=== PATIENT | male | born 1955 | race Caucasian/White ===

== ENCOUNTER → 2024-05-06 08:51 | Outpatient (REF) | payer MEDICARE, SELFPAY | LOC: HWRAD 08:51 | PROVIDERS: ATTENDING PHYSICIAN Student in an Organized Health Care Education/Training Program | DX: Z00.00 Encounter for general adult medical examination without abnormal findings (principal); I10 Essential (primary) hypertension; E11.69 Type 2 diabetes mellitus with other specified complication; K74.60 Unspecified cirrhosis of liver | CPT/HCPCS: 75571 ==

== ENCOUNTER → 2024-09-18 13:05 | Outpatient (REF) | payer MEDICARE, SELFPAY | LOC: RAD 13:05 | PROVIDERS: ATTENDING PHYSICIAN Internal Medicine; FAMILY PHYSICIAN Student in an Organized Health Care Education/Training Program | DX: C22.0 Liver cell carcinoma (principal); Z51.12 Encounter for antineoplastic immunotherapy; I83.891 Varicose veins of right lower extremity with other complications | CPT/HCPCS: 93971 ==

== ENCOUNTER → 2024-10-23 14:43 | Outpatient (REF) | payer MEDICARE, SELFPAY | LOC: HWRAD 14:43 | PROVIDERS: ATTENDING PHYSICIAN Registered Nurse Oncology; FAMILY PHYSICIAN Student in an Organized Health Care Education/Training Program | DX: C22.0 Liver cell carcinoma (principal) | CPT/HCPCS: 76700; 93975 ==

== ENCOUNTER → 2024-10-24 10:42 | Outpatient (REF) | payer MEDICARE, SELFPAY ==
[2024-10-24 10:55] VITALS: BP 134/74; BP_SYST 80
[2024-10-24 11:35] VITALS: BP 127/47
[2024-10-24 13:02] LABS: Body Fluid Second Tech AMA
== END ==
LOC: RADI 10:42
PROVIDERS: ATTENDING PHYSICIAN Registered Nurse Oncology
DX: R18.8 Other ascites (principal)
CPT/HCPCS: 49083; 89051

== ENCOUNTER → 2024-10-31 12:17 | Outpatient (REF) | payer MEDICARE, SELFPAY ==
[2024-10-31 12:46] VITALS: BP 133/72; BP_SYST 75
[2024-10-31 13:24] VITALS: BP 129/69
[2024-10-31 14:02] LABS: Body Fluid Second Tech EM
== END ==
LOC: RADI 12:17
PROVIDERS: ATTENDING PHYSICIAN Registered Nurse Oncology
DX: R18.8 Other ascites (principal)
CPT/HCPCS: 49083; 89051

== ENCOUNTER → 2024-11-05 12:21 | Outpatient (REF) | payer MEDICARE, SELFPAY ==
[2024-11-05 12:41] VITALS: BP 132/63; BP_SYST 82
[2024-11-05 13:20] VITALS: BP 106/58; BP_SYST 77
[2024-11-05 13:32] VITALS: BP 106/58
[2024-11-05 14:06] LABS: Body Fluid Second Tech EM
== END ==
LOC: RADI 12:21
PROVIDERS: ATTENDING PHYSICIAN Registered Nurse Oncology; FAMILY PHYSICIAN Student in an Organized Health Care Education/Training Program
DX: R18.8 Other ascites (principal)
CPT/HCPCS: 49083; 89051

== ENCOUNTER → 2024-11-11 12:23 | Outpatient (REF) | payer MEDICARE, SELFPAY ==
[2024-11-11 12:30] VITALS: BP 142/76; BP_SYST 89
[2024-11-11 13:10] VITALS: BP 116/60; BP_SYST 84
[2024-11-11 15:43] LABS: Body Fluid Second Tech RP
== END ==
LOC: RADI 12:23
PROVIDERS: ATTENDING PHYSICIAN Registered Nurse Oncology; FAMILY PHYSICIAN Student in an Organized Health Care Education/Training Program
DX: R18.8 Other ascites (principal)
CPT/HCPCS: 49083; 89051

== ENCOUNTER → 2024-11-20 10:14 | Outpatient (REF) | payer MEDICARE, SELFPAY ==
[2024-11-20 10:50] VITALS: BP 123/65; BP_SYST 68
[2024-11-20 11:40] VITALS: BP 110/53
[2024-11-20 12:30] LABS: Body Fluid Second Tech AP
== END ==
LOC: RADI 10:14
PROVIDERS: ATTENDING PHYSICIAN Registered Nurse Oncology; FAMILY PHYSICIAN Student in an Organized Health Care Education/Training Program
DX: R18.8 Other ascites (principal)
CPT/HCPCS: 49083; 89051

== ENCOUNTER → 2024-11-20 10:17 | Outpatient (REF) | payer MEDICARE, SELFPAY | LOC: RCS 10:17 | PROVIDERS: ATTENDING PHYSICIAN Internal Medicine; FAMILY PHYSICIAN Student in an Organized Health Care Education/Training Program | DX: C22.0 Liver cell carcinoma (principal); Z51.12 Encounter for antineoplastic immunotherapy; D69.6 Thrombocytopenia, unspecified; D53.9 Nutritional anemia, unspecified; R77.2 Abnormality of alphafetoprotein | CPT/HCPCS: 93005 ==

== ENCOUNTER → 2024-11-26 09:15 | Outpatient (REF) | payer MEDICARE, SELFPAY ==
[2024-11-26 09:33] VITALS: BP 155/85; BP_SYST 71
[2024-11-26 10:38] VITALS: BP 120/75; BP_SYST 69
[2024-11-26 11:48] LABS: Body Fluid Second Tech AMA
== END ==
LOC: RADI 09:15
PROVIDERS: ATTENDING PHYSICIAN Registered Nurse Oncology; FAMILY PHYSICIAN Student in an Organized Health Care Education/Training Program; REFERRING PHYSICIAN Internal Medicine
DX: R18.8 Other ascites (principal)
CPT/HCPCS: 49083; 89051

== ENCOUNTER → 2024-12-03 09:20 | Outpatient (REF) | payer MEDICARE, SELFPAY ==
[2024-12-03 09:48] VITALS: BP 157/85; BP_SYST 86
[2024-12-03 11:05] VITALS: BP 132/74; BP_SYST 85
[2024-12-03 11:15] VITALS: BP 132/74
[2024-12-03 12:23] LABS: Body Fluid Second Tech US
== END ==
LOC: RADI 09:20
PROVIDERS: ATTENDING PHYSICIAN Registered Nurse Oncology; FAMILY PHYSICIAN Student in an Organized Health Care Education/Training Program; REFERRING PHYSICIAN Internal Medicine Gastroenterology
DX: R18.8 Other ascites (principal)
CPT/HCPCS: 49083; 82042; 88112; 88305; 89051

== ENCOUNTER → 2024-12-03 09:51 | Outpatient (REF) | payer MEDICARE, SELFPAY ==
[2024-12-03 13:24] LABS: ALT (SGPT) 86 U/L (0-50); AST (SGOT) 208 U/L (17-59); Albumin 3.3 g/dl (3.5-5.0); Alkaline Phosphatase 377 U/L (38-126); Blood Urea Nitrogen 36 mg/dl (9-20); Calcium 8.5 mg/dl (8.4-10.2); Carbon Dioxide 31 mmol/L (22-30); Chloride 102 mmol/L (98-107); Glucose 120 mg/dl (70-99); Potassium 3.9 mmol/L (3.5-5.1); Sodium 137 mmol/L (135-145); Total Protein 6.2 g/dl (6.3-8.2); eGFR > 60.00
== END ==
LOC: REG 09:51
PROVIDERS: ATTENDING PHYSICIAN Internal Medicine Gastroenterology
DX: K75.81 Nonalcoholic steatohepatitis (NASH) (principal)
CPT/HCPCS: 36415; 80053

== ENCOUNTER → 2024-12-09 08:38 | Outpatient (REF) | payer MEDICARE, SELFPAY ==
[2024-12-09 08:45] VITALS: BP 141/83; BP_SYST 99
[2024-12-09 09:50] VITALS: BP 127/71; BP_SYST 84
[2024-12-09 10:00] VITALS: BP 127/71
[2024-12-09 11:23] LABS: Body Fluid Second Tech EM
== END ==
LOC: RADI 08:38
PROVIDERS: ATTENDING PHYSICIAN Registered Nurse Oncology; FAMILY PHYSICIAN Student in an Organized Health Care Education/Training Program
DX: R18.8 Other ascites (principal)
CPT/HCPCS: 49083; 89051

== ENCOUNTER 2024-12-14 18:53 | Inpatient (IN) | payer MEDICARE, SELFPAY ==
[2024-12-14] VITALS (12 sets, daily range): BP systolic 121–153; BP diastolic 65–88; BMI 21.7; BMI 21.4
--- NOTE | 2024-12-14 13:53 | ED.GENMED ---
History of Present Illness
General
Chief Complaint: Change in Mental Status
Source: patient, spouse and ambulance crew
Exam Limitations: none
Time Seen by Provider: 12/14/24 13:39
Nursing documentation reviewed up to this point in time: agreed with
History of Present Illness
History of Present Illness:
69-year-old male with a past medical history of hypertension, hyperlipidemia, diabetes, hepatocellular carcinoma who presents to the emergency department via EMS accompanied by his for evaluation of change in mental status. Patient is a
limited historian as he is acutely confused. His is at bedside and provides most of history. He was recently diagnosed with hepatocellular carcinoma earlier this year and has been following for his cancer care at [facility]. He
is currently on immunotherapy with Tecentriq and Avastin�he receives treatments every 3 weeks since September, last treatment was this past Sunday. He is also receiving weekly paracenteses and albumin treatments last paracentesis last Sunday, next
one scheduled for this upcoming Sunday. His notes that last week he was also diagnosed with new hypothyroidism and was started on Synthroid 112 mcg which he started a few days ago.
He presents to the ER today for change in mental status. His reports that she noticed yesterday afternoon patient was becoming increasingly confused�pacing around the house, very restless. He had trouble sleeping last night. This morning
markedly confused she says that he was trying to go to the bathroom in the cat's litter box. EMS called to bring him to the hospital. She has not noted any fever or chills, coughing. No vomiting. His abdomen is actually less distended than it
has typically been. No falls or trauma reported.
Past History
Past History
ED Past Medical History: HTN and Hypercholesterolemia
ED Past Surgical History: Cholecystectomy
Social History
Tobacco: Non-smoker
Alcohol: Former
Drug: None
Personal:
Living: with family
Employment: Employed
Family History
Family History: Other (Noncontributory)
Review of Systems
Review of Systems
Unable to obtain full review of systems at this time due to: other (Mental status changes)
All Other Systems: Not applicable
Phy Exam
Physical Exam
Physical Exam:
General: Awake, alert, oriented x2
Head: Normocephalic, atraumatic
Eyes: Conjunctiva normal, sclera anicteric, pupils equal round and reactive to light bilaterally
Throat: Airway intact, handling secretions
Neck: Trachea midline, supple without meningismus
Lungs: Clear to auscultation bilaterally, no wheezing, rales, rhonchi
Heart: Regular rate and rhythm, no murmurs, gallops, or rubs appreciated; right chest wall port noted
Abd: Soft, mildly distended, no apparent tenderness to palpation; small soft reducible umbilical hernia
Neuro: No gross cranial nerve deficits, he is confused but awake and alert; he is moving all extremities equally without focal motor or sensory deficit; mild tremor
Skin: No rash noted or signs of acute trauma
Extremities: No edema in extremities, equal pulses in all extremities
Scores
Heart Failure Risk
Heart Failure Risk Score: Not Applicable
Heart Score for Chest Pain Patients
STEMI patient?: Not applicable
Withdrawal Assessment of Alcohol
Withdrawal Assessment Completed?: Not applicable
Course
Orders/Labs/Results
Orders:
Orders
12/14/24 13:34
Electrocardiogram (*1) Urgent
Reason for Study: Other
Other Reason for Exam: Possible Sepsis
EKG- Treatment ONCE
12/14/24 13:40
Electrocardiogram (*1) Urgent
Reason for Study: Fatigue / Weakness
EKG- Treatment ONCE
12/14/24 13:49
Ammonia Urgent
Complete Blood Count/With Diff Urgent
Comprehensive Metabolic Panel Urgent
Magnesium Urgent
Comment: MAG ADDED ON BY FLOOR 2:45PM 12-14-24
TSH Reflex To Free T4 Urgent
12/14/24 13:53
CT Head W/o Iv Contrast Urgent
Comment:
Reason For Exam: change in mentation
12/14/24 14:13
Urinalysis Reflex To Culture Urgent
Date Specimen was Collected: 12/14/24
Time Specimen was Collected: 14:10
Urine Microscopic Reflex Cult Urgent
12/14/24 14:15
Heparin Pf [Heparin Lock Flush] 500 unit IV PER PROTOCOL
12/14/24 14:47
Add On- LAB Urgent
Tests Added?: magnesium
12/14/24 14:55
Potassium Chloride [KCl] 40 meq 0.9% Sodium Chloride 250 ml [Nss] 250 ml IV NOW
12/14/24 15:20
Prothrombin Time Urgent
12/14/24 16:12
Lactulose [Duphalac/Chronulac] 20 grams PO ONCE ONE
Abnormal Lab Results
12/14/24 12/14/24 12/14/24
13:49 14:13 15:20
RBC 4.19 L 10^6/uL
(4.70-6.10)
Hct 38.3 L %
(39.0-52.0)
MCH 31.5 H pg
(27.0-31.0)
RDW 15.6 H %
(11.5-14.5)
Plt Count 98 L 10^3/uL
(130-400)
Abs Immat Gran (auto) 0.1 H 10^3/uL
(0-0.05)
Absolute Neuts (auto) 8.2 H 10^3/uL
(1.4-6.5)
Absolute Lymphs (auto) 0.8 L 10^3/uL
(1.2-3.4)
Absolute Monos (auto) 1.1 H 10^3/uL
(0.1-0.6)
Neutrophils % 80.0 H %
(42.2-75.2)
Lymphocytes % 7.8 L %
(20.5-51.1)
Monocytes % 10.7 H %
(1.7-9.3)
PT 14.8 H Sec
(11.4-14.6)
Sodium 134 L mmol/L
(135-145)
Potassium 3.1 L mmol/L
(3.5-5.1)
Carbon Dioxide 33 H mmol/L
(22-30)
BUN 41 H mg/dl
(9-20)
Glucose 172 H mg/dl
(70-99)
Total Bilirubin 2.1 H mg/dl
(0.2-1.3)
AST 126 H U/L
(17-59)
ALT 71 H U/L
(0-50)
Alkaline Phosphatase 450 H U/L
(38-126)
Ammonia 53 H umol/L
(9-30)
Total Protein 5.9 L g/dl
(6.3-8.2)
Albumin 3.0 L g/dl
(3.5-5.0)
Ur Occult Blood Reflex 1+ A
(Negative)
Urine Glucose 3+ A
(Negative)
Urine Albumin (Reflex) 2+ A
(Neg - Trace)
12/14/24 13:49
12/14/24 13:49
Vital Signs
Initial and Last Documented VS:
Initial Vital Signs
Pulse Resp
102 20
12/14/24 13:32 12/14/24 13:32
Last Documented Vital Signs
Temp Pulse Resp BP Pulse Ox
36.4 C 89 18 150/81 99
12/14/24 13:34 12/14/24 15:30 12/14/24 15:30 12/14/24 15:08 12/14/24 15:30
MDM/Problems Addressed
Differential Diagnosis Includes:
Differential diagnosis for mental status changes in this patient is wide and includes but not limited to: Brain metastasis/brain bleed/stroke, electrolyte abnormality, dehydration, polypharmacy, hypo-/hyperthyroidism, infection including
UTI/pneumonia/viral syndrome/SBP, hepatic encephalopathy
MDM/Problems Addressed:
69-year-old male presents for change in mental status in the setting of recent immunotherapy for hepatocellular carcinoma, recently diagnosed hypothyroidism. Vitals and exam as above. Plan to place an IV send labs including a CBC and a CMP,
ammonia level, thyroid studies. Check an EKG. Will check urinalysis, chest x-ray. Send for CT head. Monitor very closely and reassess after the above.
Labs reviewed: CBC shows thrombocytopenia in the setting of known hepatocellular carcinoma, no leukocytosis. CMP shows hypokalemia and elevated BUN and creatinine likely some intravascular depletion will provide fluids and potassium repletion.
LFTs abnormal but essentially stable. His ammonia level is elevated. Thyroid studies unremarkable. Urinalysis negative for infection. CT head negative for any acute abnormality. At this point likely is diagnosis is hepatic encephalopathy will
treat with lactulose. Continue fluids and potassium repletion. Admit for continued monitoring and treatment. Discussed case with hospitalist.
Chronic conditions affecting care:
Hepatocellular carcinoma, thyroid dysfunction
*Radiology
Radiology exam reviewed: preliminary read by ED provider and radiology read reviewed
*Pulse Oximetry
SaO2: 100
Oxygen Mode of Delivery: Room air
Patient hypoxic: no (100%)
*Critical Care Note
Total Time (30-74mins, 75-104mins- exclusive of procedures): Not Applicable
Data Reviewed
Review of Other/Old Records Reveals: Labs and Records
Source: patient, records, spouse and ambulance crew
Patient Management
Discussion with other providers: Hospitalist (Discussed with hospitalist)
Escalation/DeEscalation of care consider admission/obs:
Admission indicated
ED Attending Note
-
Portions of this chart may have been created with voice recognition software.� Occasional wrong word or��sound alike� substitutions may have occurred due to the inherent limitations of voice recognition software.
Discharge Plan
Departure
Patient Disposition: Admit
Date of Disposition: 12/14/24
Time of Disposition: 16:14
Admit to doctor: Tahira
Presentation/result/management discussed w/ accepting MD/DO: Hospitalist
Discharge Problem:
Hepatic encephalopathy, Acute hypokalemia, RED (acute kidney injury)
Prescriptions:
No Action
metformin 500 MG tablet
1,000 mg PO DAILY
rosuvastatin 20 mg Tablet
20 mg PO DAILY
prednisone 20 mg Tablet
20 mg PO Q6H
prochlorperazine maleate 10 mg Tablet
10 mg PO DAILY
furosemide 40 mg Tablet
40 mg PO DAILY
spironolactone 100 mg Tablet
100 mg PO DAILY
gabapentin 100 mg Capsule
100 mg PO TID
Referrals:
Juliocesar Jones DO [Family Provider, Family Practice]
Interventions
Interventions:
*Risk Screen - Suicide Last Done: 12/14/24 13:45
*General Assessment Last Done: 12/14/24 13:34
*Neglect/Abuse Screening Last Done: 12/14/24 13:34
*ED- Fall Risk Assessment Last Done: 12/14/24 13:34
*ED COVID-19 Vaccine History Last Done: 12/14/24 13:34
ED- Pulmonary Assessment Last Done: 12/14/24 13:45
ED- Neurological Assessment Last Done: 12/14/24 13:45
ED- Cardiac Assessment Last Done: 12/14/24 13:45
Discharge Date and Time
Print Language: KYRGYZ
[2024-12-14 14:15] LABS: Hematocrit 38.3 % (39.0-52.0); Hemoglobin 13.2 g/dL (13.0-18.0); Mean Corp Hgb Conc. 34.5 g/dL (33.0-37.0); Mean Corpuscular Volume 91.4 fL (80.0-94.0); Nucleated Red Blood Cells % 0 % (-); Red Cell Dist. Width 15.6 % (11.5-14.5)
[2024-12-14 14:26] LABS: Ammonia 53 umol/L (9-30)
[2024-12-14 14:28] LABS: ALT (SGPT) 71 U/L (0-50); AST (SGOT) 126 U/L (17-59); Albumin 3.0 g/dl (3.5-5.0); Alkaline Phosphatase 450 U/L (38-126); Blood Urea Nitrogen 41 mg/dl (9-20); Calcium 8.7 mg/dl (8.4-10.2); Carbon Dioxide 33 mmol/L (22-30); Chloride 99 mmol/L (98-107); Estimated Creatinine Clearance 65 ml/min; Glucose 172 mg/dl (70-99); Potassium 3.1 mmol/L (3.5-5.1); Sodium 134 mmol/L (135-145); Total Protein 5.9 g/dl (6.3-8.2); eGFR > 60.00
[2024-12-14 14:33] LABS: Urine Character Slightly Cloudy (Clear)
[2024-12-14 14:58] LABS: Urine Squamous Cell 0-2 /LPF (Few); Urine Urothelial Cell 0-2 /LPF (FEW)
[2024-12-14 15:00] LABS: Urine Red Blood Cell 0-2 /HPF (0-2)
[2024-12-14 15:01] LABS: Urine White Cell 0-2 /HPF (0-5)
[2024-12-14 15:24] LABS: Platelet Count 98 10^3/uL (130-400)
[2024-12-14] MEDS: KCL 270 MEQ IV (15:25)
[2024-12-14 15:40] LABS: Magnesium 2.2 mg/dl (1.6-2.3)
[2024-12-14 15:44] LABS: INR 1.13; PT 14.8 Sec (11.4-14.6)
[2024-12-14] MEDS: NSS 500 IV (16:34)
[2024-12-14] MEDS: DUPHALAC/CHRONULAC 20 GRAMS PO (16:34)
--- NOTE | 2024-12-14 18:23 | W.PN.UPDATE ---
Update Note
Progress Note Update
Seen and examined the patient independently. Agree with the plan set forth by the resident. Discussed the plan. See changes in my documentation
69-year-old pleasant man was brought into the hospital because of confusion for the past 2 days according to his . He has a diagnosis of hepatocellular carcinoma and gets weekly paracentesis for ascites. He is under the care of Dr. Watson at [facility]. Currently on immunotherapy last treatment was on December 10. denies any nausea vomiting diarrhea, fever, patient is complaining of dysuria cough or sick contacts. No hemetemesis or melena.He is on Lasix as well as
spironolactone dose was increased on December 05. Patient was also started on prednisone on October 02 a day after he was started on immunotherapy and finishing up the dose.
Patient has a history of fatty liver and lost weight and was in good condition. He was on Resdifra for 3 years under the care of Dr Damon. As part of the trial he got an MRI in March 2024 which was clear. Repeat MRI in September 2024 showed liver
masses. It was hepatocellular carcinoma stage III by the time.
On examination patient is calm and pleasant confused
Knows that he is at the hospital could not give me any more details
Cardiovascular system S1-S2 appreciated
Chest clear to auscultation decreased breath sounds at the bases
Abdomen distended nontender bowel sounds present, umbilical hernia easily reducible
Mild tremors noted and a asterixis
No pedal edema
Head CT-mild diffuse cerebral and cerebellar volume loss. Mild periventricular white matter leukoaraiosis
EKG reviewed by me-sinus rhythm with PVCs and PACs.
# Confusion/encephalopathy
Likely hepatic encephalopathy-ammonia level 53
Triggering factor unclear
Needs paracentesis to rule out SBP-do diagnostic tap in the setting of hepatic encephalopathy to rule out SBP.
Blood cultures, chest x-ray, ordered
Check EEG
Urinalysis not indicative of UTI
COVID serologies negative
Hold diuretics
Start lactulose, follow ammonia levels and clinical response
GI evaluation
# Hepatocellular carcinoma diagnosed September 2024 stage III
Started on immunotherapy with Tecentriq, Avastin October 01 2024
Patient was also started on prednisone high dose on October 02, 2024 for unclear reasons-unclear if patient had any immune related adverse events. Completed last dose of Pred yesterday.
Patient has had 4 rounds of immunotherapy last round being on December 10, 2024
He follows up with Dr. Lise Zaragoza at [facility] ( records requested)
Gets weekly paracentesis with albumin has had 8 paracentesis so far starting 10/24/2024 and last 1 was on 12/09/2024 4.9 L were removed with albumin given.
Fluid WBC 239 ( Ply 30 %)-not consistent with SBP. No Gram stain or culture.
Cytology from fluid available from 12/03/2024-negative for malignant cells
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
# Hyponatremia-mild follow
# Hypokalemia-replaced in the ER. Repeat in the morning
# Hyperlipidemia-hold statin
# History of hypertension-not on medicines currently
# Diabetes-check hemoglobin A1c , continue metformin, Accu-Cheks and sliding scale coverage
# Hypothyroidism-normal TSH. Continue levothyroxine
# DVT prophylaxis-Lovenox
# CODE STATUS- FULL
Discussed with at bedside in detail
Time spent over 75 minutes
--- NOTE | 2024-12-14 18:26 | HPS.HSE ---
Family Physician
-
Family Physician: Juliocesar Jones, DO
Chief Complaint
-
Weakness, reduced appetite, confusion, dizziness
History of Present Illness
This is a 69-year-old male with a past medical history of hypertensive disease hyperlipidemia diabetes mellitus, hepatocellular carcinoma and hypothyroidism who presented to the ED today on account of weeks history of reduced appetite, weakness with
reduced activity tolerance, a days history of confusion which was noticed by his patient said he felt dizzy today he denies any history of nausea vomiting fever or urinary symptoms last bowel movement was 2 days ago, normal color
He had been on a 3-year trial for fatty liver disease where he had been taking Resmetirom along with lifestyle modification. He had noticed a significant weight loss and eventually developed GI discomfort
He had a routine MRI done in September which revealed liver pathology and was subsequently diagnosed with stage III hepatocellular carcinoma workup for liver cancer prior to that his MRI in March had showed no significant findings
He is on 3 weekly immunotherapy with Tecentriq and Avastin and weekly paracentesis with albumin infusion (next one scheduled for Sunday)
Medical History
Past Medical History
Past Medical History: Reports HTN (Has been off medication since he has been normotensive), Hypercholesterolemia, Hypothyroidism (Recently diagnosed and started on Synthyroid 112 mcg a few days ago) and NIDDM
Past Surgical History: Reports Cholecystectomy (For gallstones in 2013)
Social History
Tobacco: Non-smoker
Alcohol: Former (Quit 22 years ago)
Drug: None
Personal:
Living: With Family
Family History
Family History: Unable to Obtain
Allergies / Home Medications
Allergies reflects when Allergies were last updated in [employer].
Home Medications with original date entered in [employer]
Allergy/Medication List:
Allergies
Allergy/AdvReac Type Severity Reaction Status Date / Time
Penicillins Allergy Severe Rash Verified 11/05/24 12:53
Home Medications
metformin 500 mg tablet 1,000 mg PO DAILY Diabetes 02/05/14
rosuvastatin 20 mg tablet 20 mg PO QPM 11/05/24
furosemide 40 mg tablet 80 mg PO DAILY 11/26/24
spironolactone 100 mg tablet 200 mg PO DAILY 11/26/24
levothyroxine 112 mcg tablet 112 mcg PO DAILY 12/14/24
lidocaine-prilocaine 2.5 %-2.5 % topical cream 1 applic topical DAILYPRN PRN port access 12/14/24
ondansetron HCl 8 mg tablet 8 mg PO Q8HPRN PRN nausea 12/14/24
Review of Systems
-
History Source: Patient and Family ( at the bedside)
Constitutional: Reports Weight Loss, Fatigue and Sleep Disturbance (Hypersomnia, slept for over 12 hours)
EENT: Reports No Symptoms
Respiratory: Reports No Symptoms
Cardiac: Reports No Symptoms
: Reports No Symptoms
Musculoskeletal: Reports No Symptoms
Skin: Reports No Symptoms
Neurological: Reports Other (Awake and alert oriented x 3 mild confusion, using appropriate answers)
Endocrine: Reports No Symptoms
Physical Exam
Vital Signs
Vital Signs
Temp Pulse Resp BP Pulse Ox
97.6 F 91 20 141/76 97
12/14/24 13:34 12/14/24 17:45 12/14/24 17:45 12/14/24 17:00 12/14/24 17:45
Physical Exam
General: Appears Chronically Ill
HEENT: Anicteric, Moist mucous membranes and Atraumatic
Respiratory: Clear; No Wheezes or Rales
Cardiac: S1/S2 and Irregular Rhythm
GI: Non Tender, Non Distended and Distended (Firm)
Musculoskeletal: No Clubbing, No Cyanosis and No Edema
Skin: Warm and Dry
Neuro: Awake, Alert, Oriented and Tremors (Mild asterixis)
Psych: Calm
Laboratory Results
-
12/14/24 13:49
12/14/24 13:49
Laboratory Results
PT 14.8 Sec (11.4-14.6) H 12/14/24 15:20
INR 1.13 12/14/24 15:20
Total Bilirubin 2.1 mg/dl (0.2-1.3) H 12/14/24 13:49
AST 126 U/L (17-59) H 12/14/24 13:49
ALT 71 U/L (0-50) H 12/14/24 13:49
Alkaline Phosphatase 450 U/L (38-126) H 12/14/24 13:49
Impression/Plan
-
IMPRESSION:
Altered mental status
Acute metabolic encephalopathy
Spontaneous bacterial peritonitis
Electrolyte abnormality
Hypertension
Diabetes
Hypothyroidism
Hyperlipidemia
PLAN:
#Altered mental status
#Likely acute metabolic encephalopathy
- NH3�53
�Mild transaminitis
� Started lactulose in the ED
�Rule out Spontaneous bacterial peritonitis
iRad consulted
Peritoneal fluid analysis; glucose, albumin, LDH, cytology, Gram stain and culture
Urinalysis reflex culture, blood culture x 2
Daily CBC
GI consulted
� In the setting of acute metabolic encephalopathy, hold spironolactone, furosemide
#Electrolyte abnormality
-Hypokalemia, replete
-Daily cmp
Hypertension
Has been off medications
Monitor
NIDDM
-Continue metformin
- POC glucose checks
#Hypothyroidism
Repeat TSH
Continue Synthyroid
#Hyperlipidemia
- Hold rosuvastatin
#Ascites
-On weekly therapeutic paracentesis with albumin infusion
#DVT prophylaxis-Lovenox
# CODE STATUS- FULL
--- NOTE | 2024-12-14 23:58 | PTCARENOTE ---
Pt arrived to unit via stretcher. Pt transferred from stretcher to bed. Pt transferred from Bed 337-02 to Bed 326-01. Pt oriented to room. Pt AAOx2, pt not oriented to 'time'. Pt's VSS. Call godinez within reach, plan of care ongoing.
[2024-12-15] VITALS (10 sets, daily range): BP systolic 91–151; BP diastolic 67–87; BMI 21.4
[2024-12-15] MEDS: SYNTHROID 112 MCG PO (06:30)
[2024-12-15 06:52] LABS: Ammonia 44 umol/L (9-30)
[2024-12-15 06:52] LABS: INR 1.10; PT 14.5 Sec (11.4-14.6)
[2024-12-15 07:08] LABS: Hematocrit 38.0 % (39.0-52.0); Hemoglobin 13.1 g/dL (13.0-18.0); Mean Corp Hgb Conc. 34.5 g/dL (33.0-37.0); Mean Corpuscular Volume 93.8 fL (80.0-94.0); Nucleated Red Blood Cells % 0 % (-); Platelet Count 91 10^3/uL (130-400); Red Cell Dist. Width 15.8 % (11.5-14.5)
[2024-12-15 07:22] LABS: ALT (SGPT) 62 U/L (0-50); AST (SGOT) 109 U/L (17-59); Albumin 2.8 g/dl (3.5-5.0); Alkaline Phosphatase 412 U/L (38-126); Blood Urea Nitrogen 40 mg/dl (9-20); Calcium 8.8 mg/dl (8.4-10.2); Carbon Dioxide 31 mmol/L (22-30); Chloride 103 mmol/L (98-107); Estimated Creatinine Clearance 71 ml/min; Glucose 133 mg/dl (70-99); Potassium 3.7 mmol/L (3.5-5.1); Sodium 137 mmol/L (135-145); Total Protein 5.7 g/dl (6.3-8.2); eGFR > 60.00
[2024-12-15 08:05] LABS: Glucose - Point of Care 111 mg/dl (70-99)
[2024-12-15] MEDS: NOVOLOG FLEXPEN-LOW RESISTANCE SC (08:14)
[2024-12-15] MEDS: DUPHALAC/CHRONULAC 20 GRAMS PO ×3 (08:20→21:48)
[2024-12-15] MEDS: GLUCOPHAGE 1000 MG PO (08:21)
[2024-12-15 10:39] LABS: Glycohemoglobin (HgbA1c) 7.0 % (4.0-5.6)
--- NOTE | 2024-12-15 11:26 | CON.GI ---
Addendum entered and electronically signed by Irais Mtz Do, MD 12/15/24 16:56:
I saw and examined the patient.
The REELING OPERATOR's note was reviewed and I agree with the note.
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 He sees Dr Damon and Dr Zaragoza at
[place]. He was on clinical trial of rezdiffra for about [address] Damon in [place]. He reports normal MRI abdomen in Mar 2024 and repeat in September 2024 showed stage III HCC. He started immunotherapy with Tecentriq, Avastin through [facility] at [place] with 4 every 3week infusion last was in Dec 10 via his PORT. He of note was also recently placed on short pred taper for 'inflammation' and possible thyroiditis. He was placed last week on synthroid. In addition neurontin for
hiccups. His on Sunday found him to be sleepy and confused. He also lost about 40lbs since his cancer diagnosis. He currently denies dysphagia, reflux, heartburn, abd pain, constipation or diarrhea. Vitals stable. Exam thin bitemporal
wasting. Fluid wave NTTP. No asterixis Labs reviewed
Impression
- Acute change in mental status
Suspect from hepatic encephalopathy and multiple new meds recently (steroid thyroid med and neurontin)
- MASH cirrhosis
- Stage III HCC
- Recurrent large volume ascites
- DM
- HTN
- Weight loss
Recommendations
- Paracentesis done 4L removed neg for SBP, gram stain pending
- Hold diuretics, trend Cr
- C/w regular diet, add oral supplements
- BC and CXR negative for infection
- C/w lactulose, goal is 2BM daily
- Add xifaximin
- Anticipate d/c home tomorrow from GI perspective given significant improvement in mental status
Will follow with you.
Addendum entered and electronically signed by JUNIOR Gerard 12/15/24 14:55:
currently diuretics on hold
Original Note:
Consultation
-
Date/Time Consultation Requested: 12/14/242029
Date/Time Consultation Performed: 12/15/24 1330
Requesting Provider: Hillary Granados MD
Performing Provider: JUNIOR Wright, Irais Mina MD
Reason for Consultation: hepatic encephalopathy
Medical History
Chief Complaint / HPI
Chief Complaint: confusion
History of Present Illness:
Pt is a 69yo with hx hypothyroidism, HTN, hypercholesterolemia, prior ricky, NIDDM, PAC's, ,ETOH use and quit 20 years ago then about 2020 pt was noted with fatty liver. He began to follow with Dr. Stark as [facility]
with every 6 month MRI with lab and fibroscan testing. He began in July 2024 with wt loss, abdominal pain with EGD noted gastritis but then in September follow up MRI was noted with liver mass. He was referred to [facility] and was seen by surgical
oncology with no surgical intervention due to size of tumor then began immunotherapy with Dr. Zaragoza. He completed 4th treatment on 12/10 and due 12/31 for 5th treatment. Per family recent tumor markers were improving and he was due for repeat CT 12/26
and radiation evaluation in January. He also developed onset of ascites since mid October with albumin infusions with last several treatments. He was also started on Lasix and Aldactone with increased dose up to Lasix 80mg and Aldactone 200mg and
some elevated K levels. He also recently started Levothyroxine with increasing doses. He began with increased confusion Sunday AM with increased sleepiness then shakiness and confusion with presentation for evaluation. On admission noted with
ammonia level of 53 and pt was started on Lactulose 20mg TID with improvement.
At this time pt admits to one stool this am but denies issue with odynophagia, dysphagia, GERD, nausea, vomiting, abdominal pain, diarrhea, constipation or bleeding. labs on admission notable for normal WBC, hbg, and chronic low platelets and
albumin, Na 134, K 3.1 and chronic LFT elevation. hx EGD 07/2024 gastritis no varices, colonoscopy 09/2024 no polyps--- per family with Dr. Damon.
Past Medical History
Past Medical History: Arrhythmias (PAC's), Cancer (heptocellular carcinoma ), HTN, Hypercholesterolemia, Hypothyroidism, NIDDM and Other (GUEVARA cirrhosis, portal HTN, fatty liver, syncope )
Past Surgical History: Cholecystectomy (for acute gangenous calculous cholecystitis )
Social History
Tobacco: Non-Smoker
Alcohol: Former (quit 20 + years ago)
Drug: None
Personal:
Living: With Family
Employment: Retired
Family History
Family History: Other (no family hx colon CA, cirrhosis or liver CA)
Allergies / Home Medications
Allergy/AdvReac Type Severity Reaction Status Date / Time
Penicillins Allergy Severe Rash Verified 12/15/24 10:43
�Medication �Instructions �Recorded
metformin 500 mg tablet 1,000 mg PO DAILY Diabetes 02/05/14
rosuvastatin 20 mg tablet 20 mg PO QPM 11/05/24
furosemide 40 mg tablet 80 mg PO DAILY 11/26/24
spironolactone 100 mg tablet 200 mg PO DAILY 11/26/24
levothyroxine 112 mcg tablet 112 mcg PO DAILY 12/14/24
lidocaine-prilocaine 2.5 %-2.5 % 1 applic topical DAILYPRN PRN port 12/14/24
topical cream access
ondansetron HCl 8 mg tablet 8 mg PO Q8HPRN PRN nausea 12/14/24
Review of Systems
-
History Source: Patient and Family
Constitutional: Reports Weight Loss and Fatigue
EENT: Reports No Symptoms
Respiratory: Reports Trouble Breathing (with steps )
Cardiac: Reports No Symptoms
Abdomen/GI: Reports Nausea (at times ) and Other (distention with fluid )
: Reports No Symptoms
Musculoskeletal: Reports No Symptoms
Skin: Reports No Symptoms
Neurological: Reports No Symptoms
Endocrine: Reports No Symptoms
Hematologic/Lymphatic: Reports No Symptoms
Vital Signs
Temp Pulse Resp BP Pulse Ox
97.8 F 100 15 151/87 98
12/15/24 10:38 12/15/24 10:38 12/15/24 10:38 12/15/24 10:38 12/15/24 10:38
Physical Exam
Exam
General: Other (awake and alert, no asterixis)
HEENT: Normocephalic and Other (mild jaundice )
Respiratory: Clear
Cardiac: Regular Rhythm
GI: Soft, Non Tender, Distended (mild ) and Other (small umbilical hernia )
Musculoskeletal: No Clubbing and No Cyanosis
Skin: Warm and Dry
Neuro: Awake, Alert and AO x 3
Psych: Calm
Results
WBC 9.3 10^3/uL (4.8-10.8) 12/15/24 06:27
Hgb 13.1 g/dL (13.0-18.0) 12/15/24 06:27
Hct 38.0 % (39.0-52.0) L 12/15/24 06:27
MCV 93.8 fL (80.0-94.0) 12/15/24 06:27
Plt Count 91 10^3/uL (130-400) L 12/15/24 06:27
Absolute Neuts (auto) 6.8 10^3/uL (1.4-6.5) H 12/15/24 06:27
PT 14.5 Sec (11.4-14.6) 12/15/24 06:27
INR 1.10 12/15/24 06:27
Sodium 137 mmol/L (135-145) 12/15/24 06:26
Potassium 3.7 mmol/L (3.5-5.1) 12/15/24 06:26
Chloride 103 mmol/L (98-107) 12/15/24 06:26
Carbon Dioxide 31 mmol/L (22-30) H 12/15/24 06:26
BUN 40 mg/dl (9-20) H 12/15/24 06:26
Creatinine 1.0 mg/dL (0.7-1.3) 12/15/24 06:26
Calcium 8.8 mg/dl (8.4-10.2) 12/15/24 06:
Total Bilirubin 2.5 mg/dl (0.2-1.3) H 12/15/24 06:26
AST 109 U/L (17-59) H 12/15/24 06:
ALT 62 U/L (0-50) H 12/15/24 06:
Alkaline Phosphatase 412 U/L (38-126) H 12/15/24 06:26
Diagnostic Image Results:
10/23 - US doppler
1. Normal velocity flow within the main portal vein. Right and left portal veins were not well visualized.
2. Monophasic spectral Doppler waveforms within the visualized hepatic veins, new compared to prior ultrasound dated 07/05/2021. No thrombus is discretely visualized, however if concern remains high, consider contrast-enhanced CT or MR of the abdomen.
3. Cirrhotic morphology of liver. Splenomegaly, suggestive of portal hypertension.
4. Moderate intraperitoneal ascites.
12/14 HCT
1. Mild diffuse cerebral and cerebellar volume loss.
2. Mild periventricular white matter leukoaraiosis.
12/14/24 CXR
1. No radiographic evidence for pneumonia.
2. Moderate elevation of the right hemidiaphragm.
3. Right IJ Mediport catheter in place
Prior GI Procedures:
EGD: 07/2024 [facility] gastritis no hx varices per family
Colonoscopy: 09/2024- [facility] no polyps
Assessment / Plan
-
Pt is a 69yo with hx hypothyroidism, HTN, hypercholesterolemia, prior ricky, NIDDM, ETOH use and quit 20 years ago then about 2021 pt was noted with fatty liver. He began to follow with Dr. Stark as was placed [facility] with every
6 month MRI with lab and fibroscan testing. He began in July 2024 with wt loss, abdominal pain with EGD noted gastritis but then in September follow up MRI was noted with liver mass. He was referred to [facility] and was seen by surgical oncology with
no surgical intervention due to size of tumor then began immunotherapy with Dr. Zaragoza. He completed 4th treatment on 12/10 and due 12/31 for 5th treatment. Per family recent tumor markers were improving and he was due for repeat CT 12/26 and radiation
evaluation in January. He also developed onset of ascites since mid October with albumin infusions with last several treatments. He was also started on Lasix and Aldactone with increased dose up to Lasix 80mg and Aldactone 200mg and some elevated K
levels. He also recently started Levothyroxine with increasing doses. He began with increased confusion Sunday AM with increased sleepiness then shakiness and confusion with presentation for evaluation. On admission noted with ammonia level of 53
and pt was started on Lactulose 20mg TID with improvement.
At this time pt admits to one stool this am but denies issue with odynophagia, dysphagia, GERD, nausea, vomiting, abdominal pain, diarrhea, constipation or bleeding. labs on admission notable for normal WBC, hbg, and chronic low platelets and
albumin, Na 134, K 3.1 and chronic LFT elevation. hx EGD 07/2024 gastritis no varices, colonoscopy 09/2024 no polyps--- per family with Dr. Damon.
-new onset confusion with elevated ammonia and hepatic encephalopathy
-hx GUEVARA cirrhosis
-liver CA with current immunotherapy treatment
-ascites with weekly paracentesis
- HTN
- hypercholesterolemia
- prior ricky
- NIDDM
- ETOH use quit 20 years ago
PLAN:
etiology of confusion concern for new HE-- onset related to progression of liver disease, electrolyte imbalance with recent start of Lasix/adactone with initial hyperkalemia then hypokalemia, r/o infection, no current signs of bleeding vs other
mental status improved
agree with [id number] TID
reviewed with nursing for tracking all stools and adjusting medication with monitor need to add Xifaxan
CXR neg, UA neg, blood cx pending
s/p para for 4400 neg SBP and albumin infusing now
reviewed with nursing for tracking all stools
cont cholesterol lowering diet
MELD 3.0 based on 12/15 labs
OP follow up with Dr. Zaragoza and Dr. Damon
updated and reviewed with for plan
-
-
Thank you for consultation and allowing me to participate in the patient's care. Please call the leather sponger GI physician during the after hours with any questions or concerns.
[2024-12-15 12:24] LABS: Glucose - Point of Care 177 mg/dl (70-99)
[2024-12-15 12:40] LABS: Body Fluid Second Tech HB
[2024-12-15] MEDS: FLEXBUMIN 100 IV (13:02)
[2024-12-15] MEDS: NOVOLOG FLEXPEN-LOW RESISTANCE 1 UNITS SC (14:16)
--- NOTE | 2024-12-15 15:09 | W.PN.UPDATE ---
Update Note
Progress Note Update
Seen and examined the patient independently. Agree with the plan set forth by the resident. Discussed the plan. See changes in my documentation
69-year-old pleasant man was brought into the hospital because of confusion for the past 2 days according to his . He has a diagnosis of hepatocellular carcinoma and gets weekly paracentesis for ascites. He is under the care of Dr. Watson at [facility]. Currently on immunotherapy last treatment was on December 10. denies any nausea vomiting diarrhea, fever, patient is complaining of dysuria cough or sick contacts. No hemetemesis or melena.He is on Lasix as well as
spironolactone dose was increased on December 05. Patient was also started on prednisone on October 02 a day after he was started on immunotherapy and finishing up the dose.
Patient has a history of fatty liver and lost weight and was in good condition. He was on Resdifra for 3 years under the care of Dr Damon. As part of the trial he got an MRI in March 2024 which was clear. Repeat MRI in September 2024 showed liver
masses. It was hepatocellular carcinoma stage III by the time.
On examination patient is calm and awake and alert. Aware that he is at [facility] this is December. And today is a Sunday.
Knows that he is at the hospital could not give me any more details
Cardiovascular system S1-S2 appreciated
Chest clear to auscultation decreased breath sounds at the bases
Abdomen soft and nontender. Not distended
Mild tremors noted and no asterixis
No pedal edema
Head CT-mild diffuse cerebral and cerebellar volume loss. Mild periventricular white matter leukoaraiosis
EKG reviewed by me-sinus rhythm with PVCs and PACs.
# Confusion/encephalopathy
Likely hepatic encephalopathy-ammonia level 53
Triggering factor unclear
Needs paracentesis to rule out SBP-do diagnostic tap in the setting of hepatic encephalopathy to rule out SBP.
Blood cultures, chest x-ray, ordered
Urinalysis not indicative of UTI
COVID serologies negative
Hold diuretics
Started lactulose, follow ammonia levels and clinical response-clinically improved. Ammonia levels improved
GI evaluation
No need for EEG
# Hepatocellular carcinoma diagnosed September 2024 stage III
Started on immunotherapy with Tecentriq, Avastin October 01 2024
Patient was also started on prednisone high dose on October 02, 2024 for unclear reasons-unclear if patient had any immune related adverse events. Completed last dose of Pred yesterday.
Patient has had 4 rounds of immunotherapy last round being on December 10, 2024
He follows up with Dr. Lise Zaragoza at [facility] ( records requested)
Gets weekly paracentesis with albumin has had 8 paracentesis so far starting 10/24/2024 and last 1 was on 12/09/2024 4.9 L were removed with albumin given.
Paracentesis on 12/15/2024 removed 4.4 L-No SBP per fluid studies
Cytology from fluid available from 12/03/2024-negative for malignant cells
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
# Hyponatremia-resolved
# Hypokalemia-replaced in the ER. Repeat stable
# Hyperlipidemia-hold statin
# History of hypertension-not on medicines currently
# Diabetes-check hemoglobin A1c 7.0 , continue metformin, Accu-Cheks and sliding scale coverage
# Hypothyroidism-normal TSH. Continue levothyroxine
# DVT prophylaxis-Lovenox
# CODE STATUS- FULL
Discussed with GI
Discussed with IR
Discussed with nursing
Discussed with at bedside in detail
--- NOTE | 2024-12-15 15:20 | W.PN.HOSP.TC ---
Today's Communication/Plan
-
Replete albumin prior to Paracentesis
Peritoneal fluid analysis pending
Bowel regimen
Continue to monitor
Assessment / Plan
Assessment / Plan
69-year-old male with a past medical history of stage III hepatocellular carcinoma on immunotherapy with Tecentriq and Avastin and weekly paracentesis with albumin infusion , hypertensive disease hyperlipidemia diabetes mellitus, and hypothyroidism
who presented with 2 day confusion, and weeks long history of reduced appetite, weakness with reduced activity tolerance
#Altered mental status
#Likely acute metabolic encephalopathy
#Ascites s/p paracentesis
ammonia�53H--> 44H
Total Bili 1.4-->2,1-->2.5
AST 126-->109 H
ALT 71�>62 H
ALP 450-->412H
R Factor: 0.4 cholestatic
Total protein 6.2L, Albumin� 3.31 L
Continue Lactulose
Continue to trend ammonia
Peritoneal fluid analysis pending
Blood culture pending
Hold diuretics
Continue to check for changes in LOC, abdominal pain, fever
GI, IRAD following
#Stage III Hepatocellular Carcinoma
#Ascites s/p paracentesis
On immunotherapy with Tecentriq, Avastin
Weekly paracentesis with albumin
Follows Dr. Lise Zaragoza
Cytology from fluid available from 12/03/2024-negative for malignant cells
Albumin repleted for Paracentesis
Peritoneal fluid analysis pending
#Constipation
-Lactulose 20mg TID
#Electrolyte abnormality
-Hypokalemia, replete
-Hyponatremia, continue to� observe
-Trend CMP
# NIDDM
Hemoglobin A1c- 7.0
continue metformin, POC glucose checks
Sliding scale coverage
Hypertension
-Monitor
#Hypothyroidism
TSH 3.06
Continue Synthyroid
#Hyperlipidemia
- Hold rosuvastatin
#DVT prophylaxis-Heparin Sodium
# CODE STATUS- FULL�
Anticipated Discharge: 24 - 48 hours
Subjective/Interval History
-
Date of Service: December 15, 2024
Feels that he has more clarity, but still feeling weak. Had bowel movement today. Denies abdominal pain, cough, n/v, fever.
Objective Data
-
Labs:
Laboratory Results
12/15/24 12/15/24
06:26 06:27
WBC 9.3
Hgb 13.1
Hct 38.0 L
Plt Count 91 L
PT 14.5
INR 1.10
Sodium 137
Potassium 3.7
Chloride 103
Carbon Dioxide 31 H
BUN 40 H
Creatinine 1.0
Glucose 133 H
Calcium 8.8
Total Bilirubin 2.5 H
AST 109 H
ALT 62 H
Alkaline Phosphatase 412 H
Vital Signs:
Vital Signs
Temp Pulse Resp BP Pulse Ox
98.2 F 93 18 127/72 99
12/15/24 13:05 12/15/24 13:05 12/15/24 13:05 12/15/24 13:05 12/15/24 13:05
I&O
12/14/24 12/15/24 12/16/24
06:59 06:59 06:59
Intake Total 480 / 480
Balance 480 / 480
Review of Systems
-
Constitutional: Reports Weight Loss, Fatigue, Weakness and Other (Denies fever)
EENT: Reports No Symptoms Reported
Respiratory: Reports No Symptoms
Cardiac: Reports No Symptoms
Abdomen/GI: Reports Constipated and Other (Denies abdominal pain, Nausea and vomiting)
Musculoskeletal: Reports Other (Denies edema)
Neuro: Reports Other (Denies dizziness, lightheadedness)
Hematologic / Lymphatic: Reports Other (Denies bleeding)
Physical Exam
-
General: Appears Chronically Ill
HEENT: Normocephalic and Anicteric
Respiratory: Clear to Auscultation
Cardiac: S1/S2 and Other (RSA)
GI: Soft, Nontender, Normal Bowel Sounds and Other (reducible umbilical hernia)
Musculoskeletal: No Edema
Skin: Other ((-) jaundince)
Neuro: AO x 3 and Other ((-) tremors)
Psych: Calm
[2024-12-15 17:15] LABS: Glucose - Point of Care 227 mg/dl (70-99)
[2024-12-15] MEDS: NOVOLOG FLEXPEN-LOW RESISTANCE 2 UNITS SC (17:25)
[2024-12-15 21:29] LABS: Glucose - Point of Care 215 mg/dl (70-99)
[2024-12-15] MEDS: XIFAXAN 550 MG PO (21:46)
[2024-12-15] MEDS: BenGay-Like 1 APPLIC TOPICAL (21:47)
[2024-12-15] MEDS: MELATONIN 3 MG PO (21:47)
[2024-12-16 03:14] VITALS: BP 119/62
[2024-12-16 05:17] LABS: Ammonia 80 umol/L (9-30)
[2024-12-16 05:20] LABS: ALT (SGPT) 56 U/L (0-50); AST (SGOT) 104 U/L (17-59); Albumin 3.0 g/dl (3.5-5.0); Alkaline Phosphatase 421 U/L (38-126); Blood Urea Nitrogen 37 mg/dl (9-20); Calcium 8.7 mg/dl (8.4-10.2); Carbon Dioxide 27 mmol/L (22-30); Chloride 100 mmol/L (98-107); Estimated Creatinine Clearance 78 ml/min; Glucose 181 mg/dl (70-99); Potassium 3.7 mmol/L (3.5-5.1); Sodium 134 mmol/L (135-145); Total Protein 5.7 g/dl (6.3-8.2); eGFR > 60.00
[2024-12-16 06:00] LABS: Hematocrit 37.2 % (39.0-52.0); Hemoglobin 12.5 g/dL (13.0-18.0); Mean Corp Hgb Conc. 33.6 g/dL (33.0-37.0); Mean Corpuscular Volume 93.5 fL (80.0-94.0); Platelet Count 68 10^3/uL (130-400); Red Cell Dist. Width 15.9 % (11.5-14.5)
[2024-12-16] MEDS: SYNTHROID 112 MCG PO (06:09)
[2024-12-16 07:00] VITALS: BP 114/72
[2024-12-16 07:51] LABS: Glucose - Point of Care 139 mg/dl (70-99)
[2024-12-16] MEDS: XIFAXAN 550 MG PO ×2 (08:02→22:42)
[2024-12-16] MEDS: GLUCOPHAGE 1000 MG PO (08:02)
[2024-12-16] MEDS: DUPHALAC/CHRONULAC 20 GRAMS PO ×3 (08:02→22:42)
[2024-12-16] MEDS: BenGay-Like 1 APPLIC TOPICAL (08:03)
[2024-12-16] MEDS: NOVOLOG FLEXPEN-LOW RESISTANCE SC (09:09)
[2024-12-16 11:00] VITALS: BP 131/75
[2024-12-16 11:32] LABS: Glucose - Point of Care 259 mg/dl (70-99)
[2024-12-16] MEDS: NOVOLOG FLEXPEN-LOW RESISTANCE 3 UNITS SC (12:37)
--- NOTE | 2024-12-16 13:19 | W.PN.HOSP.TC ---
Addendum entered and electronically signed by Dolores Wilkins MD 12/16/24 14:59:
I saw and evaluated the patient. I reviewed the resident�s note and agree with findings and plan as documented in the resident�s note.
On examination awake alert oriented
Cardiovascular system S1-S2 appreciated, random irregular beats noted
Chest clear to auscultation
Abdomen soft and nontender
No asterixis noted
Ammonia level is 80 today
Patient is more clear. No bowel movements reported since yesterday
Continue lactulose and chart bowel movements. Encourage ambulation
If patient continues to improve and ammonia levels come down we will discharge tomorrow.
Agree with monitoring on telemetry because of PACs.
D/W at bed side
Original Note:
Today's Communication/Plan
-
Change to regular diet
PT/OT
Trend troponin
Check ECG
transfer to telemetry
Assessment / Plan
Assessment / Plan
69-year-old male with a past medical history of stage III hepatocellular carcinoma on immunotherapy with Tecentriq and Avastin and weekly paracentesis with albumin infusion , hypertensive disease hyperlipidemia diabetes mellitus, and hypothyroidism
who presented with 2 day confusion, and weeks long history of reduced appetite, weakness with reduced activity tolerance
#Altered mental status
#Hepatic encephalopathy
#Ascites s/p paracentesis
ammonia�53H--> 44H-->80 uptrend
Total Bili 1.4-->2,1-->2.5--> 19H downtrend
AST 126-->109 H--> 104 H
ALT 71�>62 H--> 56
ALP 450-->412H--> 421
-Continue Lactulose
-Continue to trend ammonia
-Paracentesis- 4400cc removed, (-) SBP
gram stain, culture, cytology pending
-Blood culture pending
-Hold diuretics
-Continue to check for changes in LOC, abdominal pain, fever
GI, IRAD, PT/OT following
#Stage III Hepatocellular Carcinoma
#Ascites s/p paracentesis
On immunotherapy with Tecentriq, Avastin
Weekly paracentesis with albumin
Follows Dr. Lise Zaragoza
Cytology from fluid available from 12/03/2024-negative for malignant cells
Albumin repleted for Paracentesis
Peritoneal fluid cytology pending
#Elevated Troponin
0.043
-cardiac vs elevation in setting of acute illness
-trend troponin
-ECG
-transfer to telemetry
#Anemia
#Thrombocytopenia
Hgb- 13.3N-->12.5 L
Hct, 38.3-->38.0->37.2 L
Platelet 98-->91-->67 L downtrend,�
#Constipation
-Lactulose 20mg TID
#Hypokalemia
-stable
-replete if <3.5
#Hyponatremia
134L
continue to� observe
-Trend CMP
# NIDDM
Hemoglobin A1c- 7.0
continue metformin, POC glucose checks
Sliding scale coverage
#Hypertension
-stable
-Monitor
#Hypothyroidism
TSH 3.06
Continue Synthyroid
#Hyperlipidemia
- Hold rosuvastatin
#Restless leg
- Bengay-like topical TID
#DVT prophylaxis-Heparin Sodium
# CODE STATUS- FULL�
Anticipated Discharge: > 48 hours
Subjective/Interval History
-
Date of Service: December 16, 2024
The patient denies bleeding, abdominal pain, weakness, fever. Last bowel movement was yesterday. Talked to the daughter, and they have been giving the patient food from outside the hospital. The patient prefers it and has been tolerating.
Objective Data
-
Labs:
Laboratory Results
12/16/24
04:29
WBC 7.6
Hgb 12.5 L
Hct 37.2 L
Plt Count 68 L D
Sodium 134 L
Potassium 3.7
Chloride 100
Carbon Dioxide 27
BUN 37 H
Creatinine 0.9
Glucose 181 H
Calcium 8.7
Total Bilirubin 1.9 H
AST 104 H
ALT 56 H
Alkaline Phosphatase 421 H
Vital Signs:
Vital Signs
Temp Pulse Resp BP Pulse Ox
98.0 F 93 18 131/75 98
12/16/24 11:00 12/16/24 11:00 12/16/24 11:00 12/16/24 11:00 12/16/24 11:00
I&O
12/15/24 12/16/24 12/17/24
06:59 06:59 06:59
Intake Total 480 / 480 500 / 500
Balance 480 / 480 500 / 500
Review of Systems
-
Constitutional: Reports Weight Loss and Fatigue; Denies Fever
EENT: Reports No Symptoms Reported
Respiratory: Reports No Symptoms
Cardiac: Reports No Symptoms
Abdomen/GI: Reports Other (Denies abdominal pain, Nausea and vomiting)
Musculoskeletal: Reports Other (Restless Leg )
Neuro: Reports Other (Denies dizziness, lightheadedness); Denies Headache
Hematologic / Lymphatic: Reports Other (Denies bleeding)
Physical Exam
-
General: Appears Chronically Ill
HEENT: Normocephalic and Anicteric
Respiratory: Clear to Auscultation
Cardiac: S1/S2 and Other (Pauses noted with expiration)
GI: Soft, Nontender, Normal Bowel Sounds, Distended and Other (reducible umbilical hernia)
Musculoskeletal: No Edema
Skin: Other ((-) jaundince)
Neuro: AO x 3 and Other ((-) tremors)
Psych: Calm
[2024-12-16 13:31] LABS: Troponin I 0.043 ng/ml
--- NOTE | 2024-12-16 14:01 | W.PN.GI.CBS2 ---
Addendum entered and electronically signed by Alejandra Conley MD 12/16/24 19:18:
I saw and examined the patient.
The [employer] MANAGER's note was reviewed and I agree with the note.
Mental status improved. Back to baseline. AAO x 3
Impression
- Acute change in mental status
Suspect from hepatic encephalopathy and multiple new meds recently (steroid thyroid med and neurontin)
- MASH cirrhosis
- Stage III HCC
- Recurrent large volume ascites
- DM
- HTN
- Weight loss
plan
Continue lactulose-adjust to 3-4 BMs per day.
Continue Xifaxan twice daily
Will recommend follow-up with Dr. Huerta / Nik Dorsey on discharge
no further recommendation. Will sign off
Original Note:
Today's Communication / Plan
-
etiology of confusion concern for new HE-- onset related to progression of liver disease, electrolyte imbalance with recent start of Lasix/adactone with initial hyperkalemia then hypokalemia,so far infection work up neg and no current signs of
bleeding vs other
mental status remains improved
cont Lactulose TID and Xifaxan BID
reviewed with fluctuation of ammonia level but best gauge is monitoring patient mental status which is improved without asterixis
discussed close watch for med adjustment and cost of meds with family -- left contact for
pt has followed with Dr. Damon and should return for continued hepatology care
cont monitor of stools
CXR neg, UA neg, blood cx no growth so far
s/p para for 4400 neg SBP
cont cholesterol lowering diet
MELD 3.0 based on 12/15 labs
OP follow up with Dr. Zaragoza
stable from GI standpoint
all questions answered
Assessment / Plan
-
Pt is a 69yo with hx hypothyroidism, HTN, hypercholesterolemia, prior ricky, NIDDM, ETOH use and quit 20 years ago then about 2020 pt was noted with fatty liver. He began to follow with Dr. Stark as was placed on [facility] clinical trial with every
6 month MRI with lab and fibroscan testing. He began in July 2024 with wt loss, abdominal pain with EGD noted gastritis but then in September follow up MRI was noted with liver mass. He was referred to [facility] and was seen by surgical oncology with
no surgical intervention due to size of tumor then began immunotherapy with Dr. Zaragoza. He completed 4th treatment on 12/10 and due 12/31 for 5th treatment. Per family recent tumor markers were improving and he was due for repeat CT 12/26 and radiation
evaluation in January. He also developed onset of ascites since mid October with albumin infusions with last several treatments. He was also started on Lasix and Aldactone with increased dose up to Lasix 80mg and Aldactone 200mg and some elevated K
levels. He also recently started Levothyroxine with increasing doses. He began with increased confusion Sunday AM with increased sleepiness then shakiness and confusion with presentation for evaluation. On admission noted with ammonia level of 53
and pt was started on Lactulose 20mg TID with improvement.
At this time pt admits to one stool this am but denies issue with odynophagia, dysphagia, GERD, nausea, vomiting, abdominal pain, diarrhea, constipation or bleeding. labs on admission notable for normal WBC, hbg, and chronic low platelets and
albumin, Na 134, K 3.1 and chronic LFT elevation. hx EGD 07/2024 gastritis no varices, colonoscopy 09/2024 no polyps--- per family with Dr. Damon.
-new onset confusion with elevated ammonia and hepatic encephalopathy
-hx GUEVARA cirrhosis
-liver CA with current immunotherapy treatment
-ascites with weekly paracentesis
- HTN
- hypercholesterolemia
- prior ricky
- NIDDM
- ETOH use quit 20 years ago
PLAN:
etiology of confusion concern for new HE-- onset related to progression of liver disease, electrolyte imbalance with recent start of Lasix/adactone with initial hyperkalemia then hypokalemia,so far infection work up neg and no current signs of
bleeding vs other
mental status remains improved
cont Lactulose TID and Xifaxan BID
reviewed with fluctuation of ammonia level but best gauge is monitoring patient mental status which is improved without asteixis
discussed close watch for med adjustment and cost of meds with family -- left contact for
pt has followed with Dr. Damon and should return for continued hepatology care
cont monitor of stools
CXR neg, UA neg, blood cx no growth so far
s/p para for 4400 neg SBP
cont cholesterol lowering diet
MELD 3.0 based on 12/15 labs
OP follow up with Dr. Zaragoza
stable from GI standpoint
all questions answered
Subjective
Subjective
Date of Service: December 16, 2024
stool 12/15 but none today, tolerating diet mental status remains stable
Objective
Data Reviewed
Laboratory Data:
Laboratory Results
12/16/24 04:29
12/16/24 04:29
Laboratory Results
PT 14.5 Sec (11.4-14.6) 12/15/24 06:27
INR 1.10 12/15/24 06:27
Magnesium 2.2 mg/dl (1.6-2.3) 12/14/24 13:49
Total Bilirubin 1.9 mg/dl (0.2-1.3) H 12/16/24 04:29
AST 104 U/L (17-59) H 12/16/24 04:29
ALT 56 U/L (0-50) H 12/16/24 04:29
Alkaline Phosphatase 421 U/L (38-126) H 12/16/24 04:29
Vital Signs and I&O:
Vital Signs
Temp Pulse Resp BP Pulse Ox
98.0 F 93 18 131/75 98
12/16/24 11:00 12/16/24 11:00 12/16/24 11:00 12/16/24 11:00 12/16/24 11:00
I&O
12/15/24 12/16/24 12/17/24
06:59 06:59 06:59
Intake Total 480 / 480 500 / 500
Balance 480 / 480 500 / 500
Physical Exam
Physical Exam
HEENT: Anicteric
Cardiology: Normal Sinus Rhythm
Pulmonary: Clear
GI: Soft, Distended and Non Tender
Extremities: No Edema
Neuro: Non Focal (no asterixis remains oriented x 3 )
[2024-12-16 15:00] VITALS: BP 131/83
--- NOTE | 2024-12-16 15:17 | CM ---
Late note from 12/15/2024. MARIE met with Silvestre at bedside. He lives with his in a 2 story home with 2 entry steps. Master Bath on the 2nd level; powder room in the basement.
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
He was very talkative and upbeat; awaiting an endoscopic procedure.
[2024-12-16] MEDS: NOVOLOG FLEXPEN 3 UNITS SC (15:48)
--- NOTE | 2024-12-16 16:20 | CM ---
CM continues to follow for discharge planning needs. Pt had a period of confusion, attributed to elevated ammonia and hepatic encephalopathy. Possible discharge tomorrow if pt's confusion clears.
Plan: CM will follow to coordinate all discharge planning needs.
[2024-12-16 17:03] LABS: Glucose - Point of Care 212 mg/dl (70-99)
[2024-12-16] MEDS: BenGay-Like TOPICAL ×2 (17:37→22:42)
[2024-12-16 17:42] LABS: Troponin I 0.044 ng/ml
[2024-12-16] MEDS: NOVOLOG FLEXPEN 2 UNITS SC (18:46)
[2024-12-16] MEDS: NOVOLOG FLEXPEN-LOW RESISTANCE 2 UNITS SC (18:47)
[2024-12-16 19:00] VITALS: BP 144/80
[2024-12-16 21:30] LABS: Glucose - Point of Care 203 mg/dl (70-99)
[2024-12-16 23:00] VITALS: BP 125/73
[2024-12-16 23:07] LABS: Troponin I 0.057 ng/ml
[2024-12-17 03:00] VITALS: BP 113/64
[2024-12-17 05:19] LABS: Ammonia 92 umol/L (9-30)
[2024-12-17 05:36] LABS: ALT (SGPT) 55 U/L (0-50); AST (SGOT) 145 U/L (17-59); Albumin 2.9 g/dl (3.5-5.0); Alkaline Phosphatase 432 U/L (38-126); Blood Urea Nitrogen 34 mg/dl (9-20); Calcium 8.4 mg/dl (8.4-10.2); Carbon Dioxide 25 mmol/L (22-30); Chloride 101 mmol/L (98-107); Estimated Creatinine Clearance 78 ml/min; Glucose 138 mg/dl (70-99); Potassium 4.1 mmol/L (3.5-5.1); Sodium 132 mmol/L (135-145); Total Protein 5.5 g/dl (6.3-8.2); eGFR > 60.00
[2024-12-17 05:41] LABS: Hematocrit 39.0 % (39.0-52.0); Hemoglobin 13.2 g/dL (13.0-18.0); Mean Corp Hgb Conc. 33.8 g/dL (33.0-37.0); Mean Corpuscular Volume 93.5 fL (80.0-94.0); Platelet Count 81 10^3/uL (130-400); Red Cell Dist. Width 16.0 % (11.5-14.5)
[2024-12-17 05:49] LABS: Troponin I 0.065 ng/ml
[2024-12-17] MEDS: SYNTHROID 112 MCG PO (06:02)
[2024-12-17 07:00] VITALS: BP 138/83
[2024-12-17 07:46] LABS: Glucose - Point of Care 133 mg/dl (70-99)
[2024-12-17] MEDS: NOVOLOG FLEXPEN-LOW RESISTANCE SC (07:58)
[2024-12-17] MEDS: GLUCOPHAGE 1000 MG PO (08:44)
[2024-12-17] MEDS: XIFAXAN 550 MG PO ×2 (08:44→20:48)
[2024-12-17] MEDS: BenGay-Like TOPICAL ×3 (08:45→22:12)
[2024-12-17] MEDS: NOVOLOG FLEXPEN 2 UNITS SC ×3 (08:45→17:50)
[2024-12-17] MEDS: DUPHALAC/CHRONULAC PO (08:45)
--- NOTE | 2024-12-17 10:01 | W.PN.HOSP.TC ---
Addendum entered and electronically signed by Dolores Wilkins MD 12/17/24 13:37:
Seen and examined the patient independently. Agree with the plan set forth by the resident. Discussed the plan. See changes in my documentation
69-year-old pleasant man was brought into the hospital because of confusion for the past 2 days according to his . He has a diagnosis of hepatocellular carcinoma and gets weekly paracentesis for ascites. He is under the care of Dr. Watson at [place]
[facility]. Currently on immunotherapy last treatment was on December 10. denies any nausea vomiting diarrhea, fever, patient is complaining of dysuria cough or sick contacts. No hemetemesis or melena.He is on Lasix as well as
spironolactone dose was increased on December 05. Patient was also started on prednisone on October 02 a day after he was started on immunotherapy and finishing up the dose.
Patient has a history of fatty liver and lost weight and was in good condition. He was on Resdifra for 3 years under the care of Dr Damon. As part of the trial he got an MRI in March 2024 which was clear. Repeat MRI in September 2024 showed liver
masses. It was hepatocellular carcinoma stage III by the time.
On examination patient is calm and awake and alert. Aware that he is at [facility] this is December. And today is a Sunday.
Knows that he is at the hospital could not give me any more details
Cardiovascular system S1-S2 appreciated
Chest clear to auscultation decreased breath sounds at the bases
Abdomen soft and nontender. Not distended
No asterixis
No pedal edema
Head CT-mild diffuse cerebral and cerebellar volume loss. Mild periventricular white matter leukoaraiosis
EKG reviewed by me-sinus rhythm with PVCs and PACs.
# Confusion/encephalopathy
Likely hepatic encephalopathy-ammonia level 53
Triggering factor unclear
Needs paracentesis to rule out SBP-do diagnostic tap in the setting of hepatic encephalopathy to rule out SBP.
Blood cultures, chest x-ray, ordered
Urinalysis not indicative of UTI
COVID serologies negative
Hold diuretics, restart at discharge
Started lactulose, follow ammonia levels and clinical response-clinically improved. Ammonia levels improved then started climbing up
Patient still with no asterixis or symptoms. Clinically improving.
Will increase lactulose to 4 times daily
# Hepatocellular carcinoma diagnosed September 2024 stage III
Started on immunotherapy with Tecentriq, Avastin October 01 2024
Patient was also started on prednisone high dose on October 02, 2024 for unclear reasons-unclear if patient had any immune related adverse events. Completed last dose of Pred yesterday.
Patient has had 4 rounds of immunotherapy last round being on December 10, 2024
He follows up with Dr. Lise Zaragoza at [facility] ( records requested)
Gets weekly paracentesis with albumin has had 8 paracentesis so far starting 10/24/2024 and last 1 was on 12/09/2024 4.9 L were removed with albumin given.
Paracentesis on 12/15/2024 removed 4.4 L-No SBP per fluid studies
Cytology from fluid available from 12/03/2024-negative for malignant cells
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
# Hyponatremia-resolved
# Hypokalemia-replaced in the ER. Repeat stable
# Hyperlipidemia-hold statin
# History of hypertension-not on medicines currently
# Diabetes-check hemoglobin A1c 7.0 , continue metformin, Accu-Cheks and sliding scale coverage
# Hypothyroidism-normal TSH. Continue levothyroxine
# DVT prophylaxis-Lovenox
# CODE STATUS- FULL
Original Note:
Today's Communication/Plan
-
ECHO pending
Continue to trend troponin until peak
Continue to trend Ammonia
Continue to monitor
Assessment / Plan
Assessment / Plan
69-year-old male with a past medical history of stage III hepatocellular carcinoma on immunotherapy with Tecentriq and Avastin and weekly paracentesis with albumin infusion , hypertensive disease hyperlipidemia diabetes mellitus, and hypothyroidism
who presented with 2 day confusion, and weeks long history of reduced appetite, weakness with reduced activity tolerance
#Altered mental status
#Hepatic encephalopathy
#Ascites s/p paracentesis
ammonia�53H--> 44H-->80--> 92 uptrend
LFT increased
-Paracentesis- 4400cc removed, (-) SBP
-Increased to Lactulose 20mg QID
-Continue to trend ammonia
-peritoneal fluid gram stain, culture, cytology pending
-Blood culture pending
-Hold diuretics
-Continue to check for changes in LOC, abdominal pain, fever
GI, IRAD, PT/OT following
#Stage III Hepatocellular Carcinoma
#Ascites s/p paracentesis
On immunotherapy with Tecentriq, Avastin
Weekly paracentesis with albumin
Follows Dr. Lise Zaragoza
Cytology from fluid available from 12/03/2024-negative for malignant cells
Albumin repleted for Paracentesis
Peritoneal fluid cytology pending
#Elevated Troponin
0.043->0.057-->0.065
-cardiac vs elevation in setting of acute illness
-trend troponin
-ECG
-ECHO ordered
#Anemia
#Thrombocytopenia
Hgb- 13.3N-->12.5 L
Hct, 38.3-->38.0->37.2 L
Platelet 98-->91-->67 L--> 81
#Constipation
-stable
-Lactulose 20mg QID
#Hypokalemia
-stable
-replete if <3.5
#Hyponatremia
132L
continue to� observe
# NIDDM
Hemoglobin A1c- 7.0
continue metformin, POC glucose checks
Sliding scale coverage
#Hypertension
-stable
-Monitor
#Hypothyroidism
TSH 3.06
Continue Synthyroid
#Hyperlipidemia
- Hold rosuvastatin
#Restless leg
- Bengay-like topical TID
#DVT prophylaxis-Heparin Sodium
# CODE STATUS- FULL�
Anticipated Discharge: 24 - 48 hours
Subjective/Interval History
-
Date of Service: December 17, 2024
The patient still has some weakness but feels much better, he denies palpitation, shortness of breath, nausea, vomiting, and abdominal pain. His last bowel movement was yesterday.
Objective Data
-
Labs:
Laboratory Results
12/17/24 12/17/24
04:44 04:45
WBC 8.1
Hgb 13.2
Hct 39.0
Plt Count 81 L
Sodium 132 L
Potassium 4.1
Chloride 101
Carbon Dioxide 25
BUN 34 H
Creatinine 0.9
Glucose 138 H
Calcium 8.4
Total Bilirubin 2.1 H
AST 145 H
ALT 55 H
Alkaline Phosphatase 432 H
Vital Signs:
Vital Signs
Temp Pulse Resp BP Pulse Ox
97.6 F 97 16 138/83 100
12/17/24 07:00 12/17/24 07:00 12/17/24 07:00 12/17/24 07:00 12/17/24 07:00
I&O
12/16/24 12/17/24 12/18/24
06:59 06:59 06:59
Intake Total 500 / 500 840 / 840
Balance 500 / 500 840 / 840
Review of Systems
-
Constitutional: Reports Weight Loss and Fatigue; Denies Fever
EENT: Reports No Symptoms Reported
Respiratory: Reports No Symptoms
Cardiac: Reports No Symptoms
Abdomen/GI: Reports Other (Denies abdominal pain, Nausea and vomiting)
Neuro: Reports Other (Denies dizziness, lightheadedness); Denies Headache
Hematologic / Lymphatic: Reports Other (Denies bleeding)
Physical Exam
-
General: Comfortable, Conversant and Appears Chronically Ill
HEENT: Normocephalic and Anicteric
Respiratory: Clear to Auscultation
Cardiac: S1/S2 and Other (Sinus Arrythmia)
GI: Soft, Nontender, Normal Bowel Sounds, Distended and Other (reducible umbilical hernia)
Musculoskeletal: No Edema
Skin: Warm and Other; Negative Jaundice
Neuro: AO x 3 and Other ((-) tremors); Negative Tremors
Psych: Calm
[2024-12-17 11:00] VITALS: BP 134/77
[2024-12-17 11:41] LABS: Troponin I 0.054 ng/ml
[2024-12-17 11:50] LABS: Glucose - Point of Care 266 mg/dl (70-99)
[2024-12-17] MEDS: NOVOLOG FLEXPEN-LOW RESISTANCE 3 UNITS SC (12:25)
[2024-12-17] MEDS: DUPHALAC/CHRONULAC 20 GRAMS PO ×3 (12:28→22:13)
[2024-12-17 15:00] VITALS: BP 131/76
--- NOTE | 2024-12-17 16:33 | CM ---
Discharge POC: Awaiting therapy recommendations. Was attempted but patient in testing.
[2024-12-17 16:52] LABS: Glucose - Point of Care 153 mg/dl (70-99)
[2024-12-17] MEDS: NOVOLOG FLEXPEN-LOW RESISTANCE 1 UNITS SC (17:50)
[2024-12-17 19:05] VITALS: BP 155/84
[2024-12-17 21:12] LABS: Glucose - Point of Care 226 mg/dl (70-99)
[2024-12-17 23:25] VITALS: BP 123/67
[2024-12-18 03:02] VITALS: BP 113/66
[2024-12-18 05:19] LABS: Hematocrit 38.4 % (39.0-52.0); Hemoglobin 13.1 g/dL (13.0-18.0); Mean Corp Hgb Conc. 34.1 g/dL (33.0-37.0); Mean Corpuscular Volume 92.5 fL (80.0-94.0); Platelet Count 78 10^3/uL (130-400); Red Cell Dist. Width 16.1 % (11.5-14.5)
[2024-12-18 05:35] LABS: Ammonia 67 umol/L (9-30)
[2024-12-18] MEDS: SYNTHROID 112 MCG PO (06:02)
[2024-12-18 06:10] LABS: ALT (SGPT) 63 U/L (0-50); AST (SGOT) 206 U/L (17-59); Albumin 2.7 g/dl (3.5-5.0); Alkaline Phosphatase 421 U/L (38-126); Blood Urea Nitrogen 36 mg/dl (9-20); Calcium 8.3 mg/dl (8.4-10.2); Carbon Dioxide 25 mmol/L (22-30); Chloride 98 mmol/L (98-107); Estimated Creatinine Clearance 88 ml/min; Glucose 139 mg/dl (70-99); Potassium 4.5 mmol/L (3.5-5.1); Sodium 129 mmol/L (135-145); Total Protein 5.8 g/dl (6.3-8.2); eGFR > 60.00
[2024-12-18 07:20] VITALS: BP 118/69
[2024-12-18] MEDS: XIFAXAN 550 MG PO (08:01)
[2024-12-18] MEDS: BenGay-Like TOPICAL ×2 (08:01→15:51)
[2024-12-18] MEDS: GLUCOPHAGE 1000 MG PO (08:01)
[2024-12-18] MEDS: DUPHALAC/CHRONULAC 20 GRAMS PO ×2 (08:01→13:18)
[2024-12-18] MEDS: NOVOLOG FLEXPEN-LOW RESISTANCE SC (08:07)
[2024-12-18 08:08] LABS: Glucose - Point of Care 123 mg/dl (70-99)
[2024-12-18] MEDS: NOVOLOG FLEXPEN 2 UNITS SC ×2 (09:06→13:19)
[2024-12-18] MEDS: LASIX 80 MG PO (09:49)
[2024-12-18] MEDS: ALDACTONE 200 MG PO (09:49)
--- NOTE | 2024-12-18 09:57 | W.PN.HOSP.TC ---
Addendum entered and electronically signed by Dolores Wilkins MD 12/18/24 16:13:
Troponin and echo noted.
Echo normal
Patient was not having any cardiac symptoms
Troponin is likely nonischemic myocardial injury
Addendum entered and electronically signed by Dolores Wilkins MD 12/18/24 15:32:
spoke to , updated.
Statin held for discharge
asked for Paper script for Xifaxan.
Total discharge time more than 30 min
Addendum entered and electronically signed by Dolores Wilkins MD 12/18/24 13:39:
Seen and examined the patient earlier today. was at bedside. Patient was feeling well no confusion no symptoms
On examination no asterixis noted
Mild distention the abdomen nontender
Mild hyponatremia noted
LFTs noted
Diuretics restarted
I have called and left a message for at [facility]
Possible discharge today
Original Note:
Today's Communication/Plan
-
Discharge patient
Continue lactulose
Continue to monitor
Assessment / Plan
Assessment / Plan
69-year-old male with a past medical history of stage III hepatocellular carcinoma on immunotherapy with Tecentriq and Avastin and weekly paracentesis with albumin infusion , hypertensive disease hyperlipidemia diabetes mellitus, and hypothyroidism
who presented with 2 day confusion, and weeks long history of reduced appetite, weakness with reduced activity tolerance
#Altered mental status
#Hepatic encephalopathy
#Ascites s/p paracentesis
-Paracentesis- 4400cc removed, (-) SBP
ammonia�53H--> 44H-->80--> 92--> 67
LFT increased
-Lactulose 20mg QID
-peritoneal fluid- no growth
-Blood culture- no growth prelim
-Peritoneal fluid cytology pending
-Hold diuretics
-Continue to check for changes in LOC, abdominal pain, fever
GI, IRAD, PT/OT following
#Stage III Hepatocellular Carcinoma
#Ascites s/p paracentesis
On immunotherapy with Tecentriq, Avastin
Weekly paracentesis with albumin
Follows Dr. Lise Zaragoza
Cytology from fluid available from 12/03/2024-negative for malignant cells
Albumin repleted for Paracentesis
Peritoneal fluid cytology pending
-Follow up with Dr. Zaragoza, Dr. Huerta as outpatient
#Elevated Troponin
0.043->0.057-->0.065
-likely elevation in setting of acute illness
-ECG- sinus with PVC Nonspecific ST and T wave abnomarlity
-ECHO- unremarkable
#Anemia
#Thrombocytopenia
Low, but stable from previous admissions
#Constipation
-stable
-Lactulose 20mg QID
#Hypokalemia
-stable
-replete if <3.5
#Hyponatremia
129
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
continue to� observe
# NIDDM
Hemoglobin A1c- 7.0
continue metformin, POC glucose checks
Sliding scale coverage
#Hypertension
-stable
-Monitor
#Hypothyroidism
TSH 3.06
Continue Synthyroid
#Hyperlipidemia
- Hold rosuvastatin
#Restless leg
- Bengay-like topical TID
#DVT prophylaxis-Heparin Sodium
# CODE STATUS- FULL�
Anticipated Discharge: Today
Subjective/Interval History
-
Date of Service: December 18, 2024
The patient has no specific concerns today. He denies palpitations, SOB, abdominal pain, and weakness. He was able to pass bowel movement once yesterday and today.
Objective Data
-
Labs:
Laboratory Results
12/18/24
04:49
WBC 9.4
Hgb 13.1
Hct 38.4 L
Plt Count 78 L
Sodium 129 L
Potassium 4.5
Chloride 98
Carbon Dioxide 25
BUN 36 H
Creatinine 0.8
Glucose 139 H
Calcium 8.3 L
Total Bilirubin 2.5 H
AST 206 H
ALT 63 H
Alkaline Phosphatase 421 H
Vital Signs:
Vital Signs
Temp Pulse Resp BP Pulse Ox
97.9 F 90 16 118/69 99
12/18/24 07:20 12/18/24 09:49 12/18/24 07:20 12/18/24 09:49 12/18/24 07:20
I&O
12/17/24 12/18/24 12/19/24
06:59 06:59 06:59
Intake Total 840 / 840 1000 / 1000
Balance 840 / 840 1000 / 1000
Review of Systems
-
Constitutional: Reports Weight Loss and Fatigue; Denies Fever
EENT: Reports No Symptoms Reported
Respiratory: Reports No Symptoms
Cardiac: Reports No Symptoms
Abdomen/GI: Reports Other (Denies abdominal pain, Nausea and vomiting)
Neuro: Reports Other (Denies dizziness, lightheadedness); Denies Headache
Hematologic / Lymphatic: Reports Other (Denies bleeding)
Physical Exam
-
General: Comfortable, Conversant and Appears Chronically Ill
HEENT: Normocephalic and Anicteric
Respiratory: Clear to Auscultation
Cardiac: S1/S2 and Other (RSA)
GI: Soft, Nontender, Normal Bowel Sounds, Distended and Other (reducible umbilical hernia)
Musculoskeletal: No Edema
Skin: Warm and Other; Negative Jaundice
Neuro: AO x 3 and Other ((-) asterixis); Negative Tremors
Psych: Calm
[2024-12-18 10:39] VITALS: BP 130/74; PULSE 100
--- NOTE | 2024-12-18 10:47 | PTOTSP ---
Patient demonstrates safe and independent mobility, no skilled physical therapy needs at this time.
[2024-12-18 11:15] VITALS: BP 129/77
[2024-12-18 11:27] LABS: Magnesium 2.4 mg/dl (1.6-2.3)
--- NOTE | 2024-12-18 11:49 | CM ---
CM following for anticipated discharge to home. PT evaluation has identified no need for continued therapy, he is ambulating independently without an assistive device.
Pt's will drive him home today.
Plan: Discharge to home today via with no identified discharge needs.
[2024-12-18 12:32] LABS: Glucose - Point of Care 159 mg/dl (70-99)
[2024-12-18] MEDS: NOVOLOG FLEXPEN-LOW RESISTANCE 1 UNITS SC (13:19)
--- NOTE | 2024-12-18 13:23 | PN.CDI ---
CDI
- -
CDI:
Physician Documentation Request
Admit Date: 12/14/24 18:53
Dear Doctor So,
Patient admitted with hepatic encephalopathy, ascites and hepatocellular carcinoma.
Troponin noted to be elevated.
12/17 echo summary states 'Compared to a prior transthoracic echocardiogram study from December 2020 no significant changes are seen'
Laboratory Tests
12/16/24 12/16/24 12/16/24
12:54 17:01 22:37
Troponin I 0.043 H* 0.044 H* 0.057 H* D
12/17/24 12/17/24
04:44 10:55
Troponin I 0.065 H* 0.054 H*
Please provide a diagnosis for the elevated troponin:
Nonischemic myocardial injury
Type II CT demand ischemia
Other
Use of terms such as suspected, likely, concern for, or probable (associated with a specific diagnosis that is being evaluated, monitored, or treated as if it exists) are acceptable and can be coded in the inpatient setting, when documented at the
time of discharge.
Thank you,
Polly Gonzalez RN, BSN
CDI Specialist
tiger text
Please use your independent medical judgment in providing your response.
[2024-12-18 15:30] VITALS: BP 120/74
--- NOTE | 2024-12-18 19:40 | W.DCSUMMARY ---
Discharge Summary
Discharge Data
Date of Admission: 12/14/24
Date of Discharge: 12/18/24
-
Pending Results: No
Hospital Course
Discharging Physician : Dolores Wilkins MD, Ginger Charles MD
Disposition : Home
Primary care physician : Juliocesar Sherman
Principal Discharge diagnosis : Hepatic encephalopathy, Stage III Hepatocellular Carcinoma, Ascites s/p paracentesis
Chronic Discharge diagnosis : Hyperlipidemia, NIDDM, Hypothyroidism
Hospital Course : 69-year-old male with a past medical history of stage III hepatocellular carcinoma on immunotherapy with Tecentriq and Avastin and weekly paracentesis with albumin infusion , hypertensive disease hyperlipidemia diabetes mellitus,
and hypothyroidism presented with 2 day confusion, and several weeks long history of reduced appetite, weakness with reduced activity tolerance
At the ED, CBC shows thrombocytopenia in the setting of known hepatocellular carcinoma, no leukocytosis. CMP shows hypokalemia and elevated BUN and creatinine suspected to be due to intravascular depletion.. LFTs abnormal but essentially stable.
His ammonia level is elevated at 53. Thyroid studies unremarkable. Urinalysis negative for infection. CT head negative for any acute abnormality. Hepatic encephalopathy suspected, lactulose given. Fluids and potassium repletion therapy also
started. Admitted for continued monitoring and treatment.
The following problems were addressed during this hospitalization:
#Altered mental status
#Hepatic encephalopathy
#Ascites s/p paracentesis
-Paracentesis- 4400cc removed, (-) SBP
-Ammonia trend: 53H--> 44H-->80--> 92--> 67
-LFT increased, but stable
-Lactulose 20mg QID started, and will be continued as outpatient
-Diuretics held, resumed as outpatient
-Statin on hold due to elevated LFTs
-peritoneal fluid- no growth
-Blood culture- no growth preliminary
-Peritoneal fluid cytology- Negative for malignant cells. Reactive mesothelial cells and lymphocyte predominant presence
-Monitored for changes in LOC, abdominal pain, fever
#Stage III Hepatocellular Carcinoma
#Ascites s/p paracentesis
-The patient is immunotherapy with Tecentriq, Avastin and weekly paracentesis with albumin. He follows Dr. Lise Zaragoza.
-Peritoneal Fluid Cytology (12/15/2024)- Negative for malignant cells. Reactive mesothelial cells and lymphocyte predominant presence
-Follow up with Dr. Zaragoza, Dr. Damon as outpatient
#Likely Nonischemic Myocardial Injury
Troponin: 0.043->0.057-->0.065>0.054, the patient was asymptomatic
-likely elevation in setting of acute illness
-ECG (12/17/2024)- sinus with PVC Nonspecific ST and T wave abnormality
-ECHO- unremarkable
#Anemia
#Thrombocytopenia
Low, but stable from previous admissions
-Repeat Complete Blood Count as outpatient
#Constipation
-stable, passing bowel with lactulose
-Lactulose 20mg QID
#Hypokalemia
-stable
-replete if <3.5
#Hyponatremia
-Likely dilutional due to [employer] Lasix being on hold, Lasix will be continued as outpatient
-sodium levels monitored
-repeat comprehensive metabolic panel as outpatient
# NIDDM
Hemoglobin A1c- 7.0
Metformin was continued with sliding scale coverage. POC glucose checks were done accordingly.
#Hypertension
-stable
#Hypothyroidism
TSH 3.06
-Synthyroid continued
#Hyperlipidemia
- Rosuvastatin is placed on hold due to elevated LFT.
#Restless leg
- Bengay-like topical TID was given to manage the symptoms.
The patient was examined, and deemed stable for discharge with appropriate follow-up.
Important imaging findings :
Head CT (12/14/2024):
There is no CT evidence for acute intracranial hemorrhage or extra-axial collection. The ventricles are midline without evidence for hydrocephalus. There is no midline shift or herniation. There is mild diffuse symmetric cerebral and cerebellar
volume loss.
There is no CT evidence for acute, subacute, or chronic transcortical infarct. There is a mild amount of low-attenuation white matter leukoaraiosis in the periventricular white matter of both cerebral hemispheres. There is mild calcific
atherosclerotic plaque in both intracranial internal carotid arteries.
The mid nasal septum is mildly deviated to the left. Imaged paranasal sinuses and mastoid air cells are clear. The orbits appear normal.
IMPRESSION:
1. Mild diffuse cerebral and cerebellar volume loss.
2. Mild periventricular white matter leukoaraiosis.
Chest X Ray (12/14/2024):
FINDINGS:
There is a right internal jugular Mediport catheter in place. The heart size and pulmonary vasculature appears within normal limits. There is no radiographic evidence for acute pulmonary edema.
The trachea is midline. There is moderate elevation of the right hemidiaphragm. There is no radiographic evidence for focal airspace opacity suspicious for pneumonia. There is a minimal amount of subpleural subsegmental atelectasis and scarring in
the lower lungs. There is no radiographic evidence for pleural effusion or pneumothorax.
There is a minimal right convex curvature of the midthoracic spine. There is mild multilevel thoracic discogenic degenerative disease. There is mild bilateral osteoarthritis of the acromioclavicular and glenohumeral joints.
There is no radiographic evidence for pneumoperitoneum or abnormal bowel dilatation in the upper abdomen.
IMPRESSION:
1. No radiographic evidence for pneumonia.
2. Moderate elevation of the right hemidiaphragm.
3. Right IJ Mediport catheter in place.
Procedure findings :
Paracentesis (12/15/2024):
FINDINGS: 4400 cc of clear darin ascitic fluid was evacuated. Samples sent for analysis as requested.
IMPRESSION: Successful ultrasound guided diagnostic and therapeutic paracentesis.
Cytology, Peritoneal Fluid, Paracentesis:
- Satisfactory for evaluation.
- Negative for malignant cells.
- Reactive mesothelial cells and lymphocyte predominant presence.
Gram Stain: White blood cells seen. No organism seen
ECG ():
SINUS RHYTHM WITH FREQUENT PREMATURE VENTRICULAR COMPLEXES
NONSPECIFIC ST AND T WAVE ABNORMALITY
ABNORMAL ECG
WHEN COMPARED WITH ECG OF 14-Dec-2024 13:38,
PREMATURE ATRIAL COMPLEXES ARE NO LONGER PRESENT
QT HAS SHORTENED
ECHOCARDIOGRAM (12/17/2024):
SUMMARY
1. Left ventricular ejection fraction is normal with an ejection fraction of 64 % by Jiménez's biplane method of discs.
2. Normal left ventricular size, wall thickness and systolic function. No regional wall motion abnormalities are seen.
3. Compared to a prior transthoracic echocardiogram study from December 2020 no significant changes are seen.
Left Ventricle:
Normal left ventricular size, wall thickness and systolic function. No regional wall motion abnormalities are seen. Left ventricular ejection fraction is normal with an ejection fraction of 64 % by Jiménez's biplane method of discs. Normal LV
diastolic function.
Right Ventricle:
Right ventricular size and systolic function are within normal limits. RV wall thickness is mildly increased.
Left Atrium:
Indexed left atrial volume is within normal range (15-34 ml/m2).
Right Atrium:
Right atrial size is normal. The inferior vena cava appears normal.
Interatrial Septum:
The interatrial septum appears normal and intact, with no evidence of interatrial shunting.
Aortic Valve:
Valve opens normally.
Mitral Valve:
Trace mitral valve regurgitation. Mildly thickened mitral valve leaflets with mild mitral annular calcification, normal leaflet opening and trace regurgitation seen.
Trcuspid Valve:
Right heart pressure cannot be estimated. Tricuspid valve opens normally. Trace tricuspid regurgitation.
Pulmonic Valve:
Pulmonic valve opens normally. Trace pulmonary valve regurgitation.
Aorta:
The aorta, from all segments that were visualized, appears normal in dimension, with no evidence of dilatation or obstruction.
Pericardium:
There is no evidence of pericardial effusion.
Comparison To Previous Study:
Compared to a prior transthoracic echocardiogram study from December 2020 no significant changes are seen.
Discharge Plan
-
Patient Disposition: Home (Routine Discharge)
Discharge Diagnosis/Procedures: Hepatic encephalopathy, Stage III Hepatocellular Carcinoma, Ascites s/p paracentesis, Hyperlipidemia, NIDDM, Hypothyroidism
Condition: Fair
Diet: Regular
Activity: As tolerated
Driving Restrictions: As prior to admission
Bathing Restrictions: OK to Shower
Blood Work: Repeat test for Ammonia Level and CMP on 12/22/2024 OR 12/23/2024
Referrals:
Sean Damon MD [Non-Admitting Privileges, Gastroenterology]
Referral Note: follow up for continued hepatology care
Irais Mina MD [Active, Gastroenterology]
Referral Note: call for any question or problems after discharge with medication, stool frequency or problems.
Juliocesar Jones DO [Family Provider, Family Practice] - in less than 1 week
Prescriptions:
New
lactulose 10 gram/15 mL Solution
20 g PO QID 30 Days Qty: 3600 3RF
Xifaxan 550 mg Tablet
550 mg PO BID Qty: 60 0RF
(DME) Comprehensive Metabolic Panel
See Rx Instructions .Route .MEDSUPPLY Qty: 1 0RF
Rx Instructions:
on 12/22/2024 OR 12/23/2024
Diagnosis: Hepatic Encephalopathy, Elevated LFT
Send to PCP (Juliocesar Jones) and Dr. Damon
(DME) Ammonia Levels
See Rx Instructions .Route .MEDSUPPLY Qty: 1 0RF
Rx Instructions:
on 12/22/2024 or 12/23/2024
Diagnosis: Hepatic Encephalopathy, Elevated Ammonia
Send to PCP (Juliocesar Jones) and Dr. Damon
Continued
metformin 500 MG tablet
1,000 mg PO DAILY
furosemide 40 mg Tablet
80 mg PO DAILY
spironolactone 100 mg Tablet
200 mg PO DAILY
ondansetron HCl 8 mg tablet
8 mg PO Q8HPRN PRN (Reason: nausea)
lidocaine-prilocaine 2.5-2.5 % cream
1 applic topical DAILYPRN PRN (Reason: port access)
levothyroxine 112 mcg tablet
112 mcg PO DAILY
Discontinued
rosuvastatin 20 mg Tablet
20 mg PO QPM
Discharge Orders:
Discharge Patient (As Directed); Ordered 12/18/24
Ordered By: Dolores Wilkins
Discharge Date and Time
Discharge Date/Time: 12/18/24 16:49
Print Language: BOLIVIAN
== END 2024-12-18 16:49 | disposition home or self-care (01) | DRG 436 ==
LOC: 3 WEST ACU 18:53
PROVIDERS: Radiology Vascular & Interventional Radiology; ADMITTING PHYSICIAN Hospitalist; EMERGENCY PHYSICIAN Emergency Medicine; FAMILY PHYSICIAN Student in an Organized Health Care Education/Training Program; OTHER PHYSICIAN Internal Medicine Gastroenterology
PROC: 0W9G3ZX Drainage of Peritoneal Cavity, Percutaneous Approach, Diagnostic (ICD-10-PCS; 2024-12-15)
DX: C22.0 Liver cell carcinoma (principal); E87.1 Hypo-osmolality and hyponatremia; N17.9 Acute kidney failure, unspecified; R18.8 Other ascites; I5A Non-ischemic myocardial injury (non-traumatic); K76.6 Portal hypertension; K76.82 Hepatic encephalopathy; I10 Essential (primary) hypertension; E11.9 Type 2 diabetes mellitus without complications; E78.00 Pure hypercholesterolemia, unspecified; K74.60 Unspecified cirrhosis of liver; K75.81 Nonalcoholic steatohepatitis (NASH); R06.6 Hiccough; E03.9 Hypothyroidism, unspecified; D69.59 Other secondary thrombocytopenia; E87.6 Hypokalemia; M19.012 Primary osteoarthritis, left shoulder; M19.011 Primary osteoarthritis, right shoulder; I49.3 Ventricular premature depolarization; I34.81 Nonrheumatic mitral (valve) annulus calcification; K59.00 Constipation, unspecified; D64.9 Anemia, unspecified; G25.81 Restless legs syndrome; Z79.84 Long term (current) use of oral hypoglycemic drugs; Z90.49 Acquired absence of other specified parts of digestive tract; Z88.0 Allergy status to penicillin; Z79.890 Hormone replacement therapy
CPT/HCPCS: 49083; 70450; 71046; 80053; 81003; 81015; 82140; 82945; 82962; 83036; 83615; 83735; 84157; 84443; 84484; 85025; 85027; 85610; 87015; 87040; 87070; 87205; 88112; 88305; 88341; 88342; 89051; 93005; 93306; 96361; 96374; 97161; 99285; P9047

== ENCOUNTER 2024-12-20 03:33 | Inpatient (IN) | payer MEDICARE, SELFPAY ==
[2024-12-19 17:34] VITALS: BP 109/72
[2024-12-19 17:51] LABS: Hematocrit 43.3 % (39.0-52.0); Hemoglobin 14.6 g/dL (13.0-18.0); Mean Corp Hgb Conc. 33.7 g/dL (33.0-37.0); Mean Corpuscular Volume 93.9 fL (80.0-94.0); Nucleated Red Blood Cells % 0 % (-); Platelet Count 135 10^3/uL (130-400); Red Cell Dist. Width 16.5 % (11.5-14.5)
[2024-12-19 18:12] LABS: AST (SGOT) 288 U/L (17-59); Albumin 3.2 g/dl (3.5-5.0); Alkaline Phosphatase 462 U/L (38-126); Blood Urea Nitrogen 48 mg/dl (9-20); Calcium 9.0 mg/dl (8.4-10.2); Carbon Dioxide 26 mmol/L (22-30); Chloride 95 mmol/L (98-107); Glucose 207 mg/dl (70-99); Lipase 826 U/L (23-300); Potassium 5.9 mmol/L (3.5-5.1); Sodium 129 mmol/L (135-145); Total Protein 6.4 g/dl (6.3-8.2); eGFR 54.41
[2024-12-19 18:22] LABS: ALT (SGPT) 79 U/L (0-50)
--- NOTE | 2024-12-19 21:30 | ED.GENMED ---
History of Present Illness
General
Chief Complaint: Abdominal Symptoms
Source: patient, records, spouse and previous hospital records
Exam Limitations: none
Time Seen by Provider: 12/19/24 21:21
Nursing documentation reviewed up to this point in time: agreed with
History of Present Illness
History of Present Illness:
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
lactulose and his thyroid meds became nauseous vomited bilious like material vomited again in the waiting room per the spouse, has been weak, here he looks weak lips are dry minimal asterixis mental status fairly clear denies chest pain denies
abdominal pain
Past History
Past History
ED Past Medical History: Cancer, HTN and Hypercholesterolemia
ED Past Surgical History: Cholecystectomy
Social History
Tobacco: Non-smoker
Alcohol: Former
Drug: None
Personal:
Living: with family
Employment: Employed
Family History
Family History: Other (Noncontributory)
Review of Systems
Review of Systems
All Other Systems: Not applicable
Constitutional: Reports fatigue; Denies fever
EENT: Reports no symptoms
Cardiac: Denies chest pain or palpitations
ABD/GI: Reports nausea and vomiting; Denies abdominal pain
Musculoskeletal: Reports no symptoms
Neurological: Reports weakness
Phy Exam
Physical Exam
Physical Exam:
Physical Exam
General: Chronically ill-appearing male
Neck: Dried vomit around the
Heart: s1/s2 regular rate and rhythm, no murmur. equal radial pulses.
Lungs: no acute respiratory distress. clear bilaterally
Abdomen: Soft
Neuro: alert and oriented. no focal neurological deficits slight asterixis
Skin: no rash
Psychiatric: well kept. interactive and cooperative
Extremities: no edema
Course
Orders/Labs/Results
Orders:
Orders
12/19/24 17:43
CBC/With Diff [Complete Blood Count/With Diff] Urgent
CMP [Comprehensive Metabolic Panel] Urgent
Lipase Urgent
12/19/24 19:35
Electrocardiogram (*1) Urgent
Reason for Study: Abdominal Pain
EKG- Treatment ONCE
12/19/24 21:28
0.9% Sodium Chloride 500 ml [Nss] 500 ml IV BOLUS
Ondansetron Injectable [Zofran] 4 mg IV NOW STA
12/19/24 22:39
Ammonia Urgent
12/19/24 23:00
Admit/Transfer Patient As Directed
Co-Sign Provider:
Level of Care: Inpatient admission
Assign to:: Medical/Surgical
Physician / Group: Peter
Diagnosis: RED
Reason for Hospitalization: RED
Expected length of stay greater than two midnights?: Yes
ELOS- Estimated Length of Stay in days: 2
I certify the patient meets the requirements for IP care: Yes
Flush (0.9% Sodium Chloride) [Flush (Nss)] See Dose Instructions IV PER PROTOCOL
12/19/24 23:01
PRN Pain Medication Management As Directed
May give lesser potent ordered pain med per pt: Yes
preference::
Protocol:: Medication orders for pain may be administered in a
manner that supports deferring to patient preference
when the pt is:
- Requesting an ordered lesser potent pain medication.
Least to most potent pain medications are defined
as: acetaminophen < NSAID < tramadol < opioids
(morphine, oxycodone, hydromorphone).
- Requesting a lesser dose of the same medication IF
ORDERED.
- Requesting a less intrusive route of administration
if both routes are prescribed by the provider (PO <
IV).
12/19/24 23:02
Code Status As Directed
Resuscitation Status: Full Code
12/19/24 23:04
Abdominal Series [CR Obstruct Series W/pa Chest] Stat
Comment:
Reason For Exam: eval for bowel obstruction
12/19/24 23:07
Albumin Human 25% 100 ml [Flexbumin] 25 grams in 100 ml IV TODAY
Sodium Zirconium Cyclosilicate [Lokelma] 10 gram PO NOW STA
12/20/24 00:30
US Abdomen Complete/Upper Routine
Reason For Exam: unexplained pancreatitis, eval for bubba obst.
12/20/24 02:35
Bladder Scan As Directed
Follow Bladder Retention/Intermittent Cath Algorithm?: Yes
PRN if no void in __ hours: 6
Frequency: Per Retention Algorithm
If Bladder Scan Result >: 400
then:: Straight cath
Straight Cath As Directed
Frequency: Per Retention Algorithm
Additional Instructions: straight cath as needed per acute urinary retention algorithm for 24 hrs
Additional Instructions: for bladder scan greater than 400 mL
Abnormal Lab Results
12/19/24 12/19/24
17:43 22:39
WBC 13.3 H 10^3/uL
(4.8-10.8)
RBC 4.61 L 10^6/uL
(4.70-6.10)
MCH 31.7 H pg
(27.0-31.0)
RDW 16.5 H %
(11.5-14.5)
MPV 10.5 H fL
(7.4-10.4)
Abs Immat Gran (auto) 0.1 H 10^3/uL
(0-0.05)
Absolute Neuts (auto) 9.5 H 10^3/uL
(1.4-6.5)
Absolute Monos (auto) 1.8 H 10^3/uL
(0.1-0.6)
Immature Gran % 0.8 H %
(0-0.5)
Lymphocytes % 13.4 L %
(20.5-51.1)
Monocytes % 13.8 H %
(1.7-9.3)
Sodium 129 L mmol/L
(135-145)
Potassium 5.9 H D mmol/L
(3.5-5.1)
Chloride 95 L mmol/L
(98-107)
BUN 48 H mg/dl
(9-20)
Creatinine 1.4 H mg/dL
(0.7-1.3)
Glucose 207 H mg/dl
(70-99)
Total Bilirubin 3.0 H mg/dl
(0.2-1.3)
AST 288 H U/L
(17-59)
ALT 79 H U/L
(0-50)
Alkaline Phosphatase 462 H U/L
(38-126)
Ammonia 104 H umol/L
(9-30)
Albumin 3.2 L g/dl
(3.5-5.0)
Lipase 826 H U/L
(23-300)
12/19/24 17:43
12/19/24 17:43
Vital Signs
Initial and Last Documented VS:
Initial Vital Signs
Temp Pulse Resp BP Pulse Ox
97.5 F 106 20 109/72 98
12/19/24 17:34 12/19/24 17:34 12/19/24 17:34 12/19/24 17:34 12/19/24 17:34
Last Documented Vital Signs
Temp Pulse Resp BP Pulse Ox
97.5 F 88 18 113/70 97
12/19/24 17:34 12/19/24 23:00 12/20/24 00:00 12/19/24 23:00 12/19/24 23:00
*Pulse Oximetry
SaO2: 98
Oxygen Mode of Delivery: Room air
Patient hypoxic: no
*Critical Care Note
Total Time (30-74mins, 75-104mins- exclusive of procedures): Not Applicable
ED Attending Note
-
Portions of this chart may have been created with voice recognition software.� Occasional wrong word or��sound alike� substitutions may have occurred due to the inherent limitations of voice recognition software.
Discharge Plan
Departure
Patient Disposition: Admit
Date of Disposition: 12/19/24
Time of Disposition: 21:30
Admit to: Telemetry
Presentation/result/management discussed w/ accepting MD/DO: Hospitalist
Patient with high blood pressure during this ER visit?: No
Condition: Fair
Covid-19: Not Applicable
Discharge Problem:
RED (acute kidney injury)
Prescriptions:
No Action
metformin 500 MG tablet
1,000 mg PO DAILY
furosemide 40 mg Tablet
80 mg PO DAILY
spironolactone 100 mg Tablet
200 mg PO DAILY
ondansetron HCl 8 mg tablet
8 mg PO Q8HPRN PRN (Reason: nausea)
lidocaine-prilocaine 2.5-2.5 % cream
1 applic topical DAILYPRN PRN (Reason: port access)
levothyroxine 112 mcg tablet
112 mcg PO DAILY
lactulose 10 gram/15 mL Solution
20 g PO QID 30 Days Qty: 3600 3RF
Xifaxan 550 mg Tablet
550 mg PO BID Qty: 60 0RF
Patient Comments:
Prescribed, per spouse, pt not takign at this time due to [place] of medication
(DME) Comprehensive Metabolic Panel
See Rx Instructions .Route .MEDSUPPLY Qty: 1 0RF
Rx Instructions:
on 12/22/2024 OR 12/23/2024
Diagnosis: Hepatic Encephalopathy, Elevated LFT
Send to PCP (Juliocesar Jones) and Dr. Damon
(DME) Ammonia Levels
See Rx Instructions .Route .MEDSULY Qty: 1 0RF
Rx Instructions:
on 12/22/2024 or 12/23/2024
Diagnosis: Hepatic Encephalopathy, Elevated Ammonia
Send to PCP (Juliocesar Jones) and Dr. Damon
Interventions
Interventions:
*Risk Screen - Suicide Last Done: 12/19/24 17:34
*General Assessment Last Done: 12/19/24 17:34
*Neglect/Abuse Screening Last Done: 12/19/24 17:34
*ED- Fall Risk Assessment Last Done: 12/19/24 21:31
*ED COVID-19 Vaccine History Last Done: 12/19/24 21:31
*Nursing Disposition Last Done: 12/20/24 00:57
TR-Avpfxx-Mffnyhnjdx Assessment Last Done: 12/19/24 22:06
Discharge Date and Time
Discharge Date/Time: 12/20/24 00:58
Print Language: BELGIAN
[2024-12-19 21:31] VITALS: BMI 21.2
[2024-12-19 21:36] VITALS: BP 118/73
[2024-12-19 22:00] VITALS: BP 116/74
[2024-12-19] MEDS: ZOFRAN 4 MG IV (22:32)
[2024-12-19] MEDS: NSS 500 IV (22:34)
--- NOTE | 2024-12-19 22:50 | HPS.HSE ---
Family Physician
-
Family Physician: Juliocesar Jones, DO
Chief Complaint
-
Vomiting
History of Present Illness
This is a 69-year-old with past medical history significant for stage III hepatocellular carcinoma complicated by recurrent ascites requiring large-volume paracentesis weekly, on immunotherapy with Tecentriq and Avastin, hypertensive disease
hyperlipidemia diabetes mellitus, and hypothyroidism recently admitted for confusion and found to have hepatic encephalopathy and none ischemic myocardial injury status post paracentesis on December 16 and discharged yesterday comes back to the
emergency department with episode of vomiting and abdominal tightness.
Patient reported that he started taking lactulose on this morning. This afternoon he reported onset of bilious emesis. He reported having tightness in his belly. The spouse them brought him to the emergency department since he was just
discharged. In the emergency department he had 1 large voluminous emesis. He has been having a cough since then but no other vomit. Reports no current abdominal pain. Denies having any fevers or chills. Denies abdominal tenderness. He has not
had any diarrhea or constipation. He has otherwise been on his discharge medications and denies any leg swelling lightheadedness or dizziness. Denies any chest pain palpitations.
In the emergency department he had a temp of 97.5, blood pressure was 120/70 with a pulse of 95 and was satting 100% on room air. ECG shows a normal sinus rhythm at a rate of 96. He has a white count of 13.3 which is new hemoglobin and platelets
were normal. Sodium was again 129 with a potassium of 5.9, pain and creatinine level for creatinine of 1.4 which is up from 0.8. Glucose was 207. He has mild transaminitis similar to prior. Lipase is elevated at 800.
Medical History
Past Medical History
Past Medical History: Reports HTN (Has been off medication since he has been normotensive), Hypercholesterolemia, Hypothyroidism (Recently diagnosed and started on Synthyroid 112 mcg a few days ago) and NIDDM
Past Surgical History: Reports Cholecystectomy (For gallstones in 2013)
Social History
Tobacco: Non-smoker
Alcohol: Former (Quit 22 years ago)
Drug: None
Personal:
Living: With Family
Family History
Family History: Unable to Obtain
Allergies / Home Medications
Allergies reflects when Allergies were last updated in [employer].
Home Medications with original date entered in [employer]
Allergy/Medication List:
Allergies
Allergy/AdvReac Type Severity Reaction Status Date / Time
Penicillins Allergy Severe Rash Verified 11/05/24 12:53
Home Medications
metformin 500 mg tablet 1,000 mg PO DAILY Diabetes 02/05/14
rosuvastatin 20 mg tablet 20 mg PO QPM 11/05/24
furosemide 40 mg tablet 80 mg PO DAILY 11/26/24
spironolactone 100 mg tablet 200 mg PO DAILY 11/26/24
levothyroxine 112 mcg tablet 112 mcg PO DAILY 12/14/24
lidocaine-prilocaine 2.5 %-2.5 % topical cream 1 applic topical DAILYPRN PRN port access 12/14/24
ondansetron HCl 8 mg tablet 8 mg PO Q8HPRN PRN nausea 12/14/24
Review of Systems
-
History Source: Patient and Family
Constitutional: Reports No Symptoms
EENT: Reports No Symptoms
Respiratory: Reports No Symptoms
Cardiac: Reports No Symptoms
Abdomen/GI: Reports Nausea and Vomiting
: Reports No Symptoms
Musculoskeletal: Reports No Symptoms
Skin: Reports No Symptoms
Neurological: Reports No Symptoms
Endocrine: Reports No Symptoms
Hematologic/Lymphatic: Reports No Symptoms
Psych: Reports No Symptoms
Physical Exam
Vital Signs
Vital Signs
Temp Pulse Resp BP Pulse Ox
97.5 F 95 18 118/73 98
12/19/24 17:34 12/19/24 21:45 12/19/24 21:45 12/19/24 21:36 12/19/24 21:45
Physical Exam
General: No Apparent Distress
HEENT: Anicteric, Moist mucous membranes and Atraumatic
Respiratory: Clear; No Wheezes or Rales
Cardiac: S1/S2 and Regular Rhythm; No Peripheral Edema
GI: Non Tender and Distended (Firm)
Musculoskeletal: No Clubbing, No Cyanosis and No Edema
Skin: Warm and Dry
Neuro: Awake, Alert, Oriented and Tremors (Mild asterixis)
Hematologic/Lymphatic: No Lymphadenopathy
Psych: Calm
Laboratory Results
-
12/19/24 17:43
12/19/24 17:43
Laboratory Results
Total Bilirubin 3.0 mg/dl (0.2-1.3) H 12/19/24 17:43
AST 288 U/L (17-59) H 12/19/24 17:43
ALT 79 U/L (0-50) H 12/19/24 17:43
Alkaline Phosphatase 462 U/L (38-126) H 12/19/24 17:43
Lipase 826 U/L (23-300) H 12/19/24 17:43
Data Reviewed
-
Medical Tests (Nuc Med, Echo, EKG etc): Image Personally Visualized and interpreted
Lab Data: Labs Reviewed by me
Old Records: Reviewed
Impression/Plan
-
IMPRESSION:
69-year-old with history of episodes carcinoma stage III on immunotherapy complicated by recurrent ascites requiring weekly paracentesis and was recently admitted for hepatic encephalopathy status post paracentesis requiring 4.5 L fluid removal and
no evidence of infection/SBP and discharged on lactulose and Lasix presenting to the emergency department with episode of vomiting and abdominal tightness and found to have RED with a creatinine of 1.4 and hyperkalemia with a potassium of 5.9.
Patient's exam is consistent with ascites but it is not tense and does not require immediate large-volume thoracentesis. No significant tenderness to suggest SBP. He has mild transaminitis which is similar to prior. A new elevated lipase of
unknown etiology. No CP. ECG non-ischemic.
PLAN:
1. Abdominal pain - Benign exam but cannot rule out obstruction, sbp or acute pancreatitis entirely.
- admit to med/surg
- CT a/p w/o contrast
- RUQ u/s to eval biliary obstruction
- NPO for now except meds
- pain control and antiemetics
2. Hepatic encephalopathy - Ammonia up to 100 c/w acute decompensation. No bleeding. No obvious infection.
- lactulose 20, then continue w/ 20 qid for now
- GI consultation
2. RED -Cr 1.4, BUN 48. Bl 0.8. Appears euvolemic and no obvious nephrotoxins
- hold lasix for today/spironolactone
- gentle hydration and albumin infusion
- CT to rule out obstruction
- nephrology consult
3. Hyperkalemia - recurrent hyperkalemia. Has been treated with Kayexellate in the past. 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
- lokelma x 10mg now and revealuate
- holding spironolactone
4. Recurrent Ascites - no tense ascites, there is leukocytosis
- diagnostic paracentesis
5. DM II
- sliding scale insulin q 6
6. Hypothyroid
- continue synthroid
DVT PPX - heparin sq
code status - Full code
[2024-12-19 22:57] LABS: Ammonia 104 umol/L (9-30)
[2024-12-19 23:00] VITALS: BP 113/70
[2024-12-19] MEDS: LOKELMA 10 GRAM PO (23:39)
[2024-12-19] MEDS: FLEXBUMIN 100 IV (23:41)
[2024-12-20 03:38] VITALS: BP 128/66; BMI 20.8
[2024-12-20 03:49] LABS: Glucose - Point of Care 129 mg/dl (70-99)
[2024-12-20] MEDS: DUPHALAC/CHRONULAC 20 GRAMS PO ×5 (04:45→21:18)
[2024-12-20] MEDS: HEPARIN 5000 UNITS SC ×4 (04:45→23:21)
[2024-12-20] MEDS: SYNTHROID 112 MCG PO (04:48)
[2024-12-20 06:06] LABS: Ammonia 75 umol/L (9-30)
[2024-12-20 06:16] LABS: ALT (SGPT) 78 U/L (0-50); AST (SGOT) 278 U/L (17-59); Albumin 3.0 g/dl (3.5-5.0); Alkaline Phosphatase 400 U/L (38-126); Blood Urea Nitrogen 53 mg/dl (9-20); Calcium 8.7 mg/dl (8.4-10.2); Carbon Dioxide 27 mmol/L (22-30); Chloride 97 mmol/L (98-107); Estimated Creatinine Clearance 53 ml/min; Glucose 143 mg/dl (70-99); Lipase 737 U/L (23-300); Magnesium 2.5 mg/dl (1.6-2.3); Potassium 4.8 mmol/L (3.5-5.1); Sodium 130 mmol/L (135-145); Total Protein 5.7 g/dl (6.3-8.2); eGFR 59.47
--- NOTE | 2024-12-20 06:22 | PTCARENOTE ---
12/20 010 Received patient from ED via stretcher w/ belongings. Patient admitted for abd pain/ vomiting, abnormal labs. Medsurg order; VSS.
AAOx3-weak and lethargic; No c/o pain. Patient denies N/V. Right Subq port accessed in ED. Albumin infusion completed. Lokelma administered in ED.
PMH and medications reviewed by this RN and patient/ medical records. Plan of care discussed.
There was an issue with the Admissions office transferring patient from ED to . Concerns discussed with ED RN and Reel Slitter. Patient finally transferred at 0335.
[2024-12-20 06:44] LABS: Hematocrit 34.8 % (39.0-52.0); Hemoglobin 12.0 g/dL (13.0-18.0); Mean Corp Hgb Conc. 34.5 g/dL (33.0-37.0); Mean Corpuscular Volume 92.3 fL (80.0-94.0); Platelet Count 61 10^3/uL (130-400); Red Cell Dist. Width 16.1 % (11.5-14.5)
[2024-12-20 07:55] VITALS: BP 103/52
--- NOTE | 2024-12-20 10:33 | W.CON.NEPH ---
Addendum entered and electronically signed by Jono Kay MD 12/20/24 15:09:
I agree with the resident's note with the addendum
69-year-old gentleman with stage III hepatocellular carcinoma with recurrent ascites on immunotherapy treatment. He is also maintained on high-dose diuretic therapy. According to the , Oniel Tilley has recently recommended that he double his
diuretic dosing and also discontinue his Kayexalate dosing. Not long after he and also began developing confusion decreased appetite and vomiting. He was brought to the emergency room. He was noted to have hyponatremia, hyperkalemia as well as
acute kidney injury with a creatinine of 1.4 from his baseline of 0.8. The does note that the oncologist had recommended nephrology evaluation previously.
He does have diabetes which has been well-controlled with metformin therapy alone, as well as hypothyroidism controlled with Synthroid therapy.
Patient is awake alert oriented and in no distress. Mood and affect were pleasant, insight and judgment were good. Pupils are equal round and reactive to light, extraocular movements are intact, sclera were anicteric. Hearing was normal, ears and
nose are intact. Oropharynx was clear. Neck was supple with trachea midline and no thyromegaly. Heart was regular rate and rhythm without rubs. Lower extremities without edema. Lungs were clear to auscultation bilaterally and with normal
excursion. Abdomen was soft, nontender, with normal active bowel sounds, and no hepatosplenomegaly. Skin was without rash and with normal turgor.
Laboratory values reviewed including past values as well
Abdominal ultrasound on 12/20/2024 moderate ascites with possibility of portal vein thrombosis
EKG 12/19/2024 by my reading normal sinus rhythm
Assessment
Hyponatremia
Hyperkalemia
RED
Recurrent ascites
Hepatic encephalopathy
Hepatocellular carcinoma on immunotherapy
Plan
Continue holding diuretics
He likely will not require additional Lokelma
If CT with IV contrast is requested I would wait until his creatinine runs closer to his baseline of 1.0
I have no issue with MRI gadolinium at this time.
Ultimately he could return to both Lasix and spironolactone though at half dose which he was on previously. He likely will need to return to [facility] as well as an outpatient if he is on high-dose spironolactone.
Discussed with patient and
Original Note:
Consultation
-
Date/Time Consultation Requested: 12/20/2024 03:37
Date/Time Consultation Performed: 12/20/2024 10:01
Requesting Provider: Yusef Green MD
Performing Provider: Jono Kay MD
Reason for Consultation: red
Medical History
-
Chief Complaint: RED
History of Present Illness:
This is a 69-year-old male with past medical history significant for stage III hepatocellular carcinoma complicated by recurrent ascites requiring weekly large-volume paracenteses, on immunotherapy, T2DM, hypothyroidism recently admitted for
confusion and noted to have hepatic encephalopathy, discharged on lactulose. Presented to ED 12/19/2024 due to ongoing bilious emesis. In the ED, noted to have large-volume emesis. At bedside today, complains of ongoing cough, but no episodes
of vomiting. Reports loss of appetite due to ongoing chronic issues. Denies edema, shortness of breath, chest pain. Upon presentation sodium was noted to be 129, potassium 5.9, creatinine 1.4 with his baseline 0.8. Given his RED and electrolyte
abnormality we are consulted to evaluate patient from a nephrology standpoint
Past Medical History
Past medical history; hypertension, hypercholesterolemia, hypothyroidism, T2DM, stage III hepatocellular carcinoma on immunotherapy, recurrent ascites
Past surgical history; cholecystectomy 2013
Social History
Tobacco: Non-Smoker
Alcohol: Former
Drug: None
Personal:
Living: With Family
Family History
Family History: Not Pertinent
Allergies / Home Medications
Allergy/AdvReac Type Severity Reaction Status Date / Time
Penicillins Allergy Rash-'as a Verified 12/19/24 17:34
child.'
�Medication �Instructions �Recorded �Confirmed �Type
metformin 500 mg tablet 1,000 mg PO DAILY Diabetes 02/05/14 12/19/24 History
furosemide 40 mg tablet 80 mg PO DAILY Fluid 11/26/24 12/19/24 History
Retention/Swelling
spironolactone 100 mg tablet 200 mg PO DAILY Fluid Retention/BP 11/26/24 12/19/24 History
levothyroxine 112 mcg tablet 112 mcg PO DAILY Thyroid 12/14/24 12/19/24 History
lidocaine-prilocaine 2.5 %-2.5 % 1 applic topical DAILYPRN PRN port 12/14/24 12/19/24 History
topical cream access
ondansetron HCl 8 mg tablet 8 mg PO Q8HPRN PRN nausea 12/14/24 12/19/24 History
Ammonia Levels #1 ea 12/18/24 Rx
Comprehensive Metabolic Panel #1 ea 12/18/24 Rx
lactulose 10 gram/15 mL oral 20 g (30 mL) PO QID 30 days #3,600 12/18/24 12/19/24 Rx
solution mL
rifaximin 550 mg tablet (Xifaxan) 550 mg PO BID liver #60 tabs 12/18/24 Rx
Review of Systems
-
All other systems: Negative unless noted (All review of systems obtained and negative except as documented in HPI)
Physical Exam
Vital Signs
Vital Signs
Temp Pulse Resp BP Pulse Ox
97.5 F 81 16 103/52 97
12/20/24 07:55 12/20/24 07:55 12/20/24 07:55 12/20/24 07:55 12/20/24 08:00
Lab Results
WBC 7.7 10^3/uL (4.8-10.8) 12/20/24 05:36
RBC 3.77 10^6/uL (4.70-6.10) L 12/20/24 05:36
Hgb 12.0 g/dL (13.0-18.0) L 12/20/24 05:36
Hct 34.8 % (39.0-52.0) L 12/20/24 05:36
Plt Count 61 10^3/uL (130-400) L D 12/20/24 05:36
Sodium 130 mmol/L (135-145) L 12/20/24 05:36
Potassium 4.8 mmol/L (3.5-5.1) 12/20/24 05:36
Chloride 97 mmol/L (98-107) L 12/20/24 05:36
Carbon Dioxide 27 mmol/L (22-30) 12/20/24 05:36
BUN 53 mg/dl (9-20) H 12/20/24 05:36
Creatinine 1.3 mg/dL (0.7-1.3) 12/20/24 05:36
eGFR 59.47 12/20/24 05:36
Glucose 143 mg/dl (70-99) H 12/20/24 05:36
Calcium 8.7 mg/dl (8.4-10.2) 12/20/24 05:36
Albumin 3.0 g/dl (3.5-5.0) L 12/20/24 05:36
Physical Exam
General: Awake, Alert and Oriented
HEENT: Anicteric
Respiratory: Clear
Cardiac: S1/S2 and Regular Rate/Rhythm
Abdomen: Soft and Other (Distended)
Musculoskeletal: No Edema
Psych: Other (Depressed)
Assessment/Plan
-
Assessment
Hyponatremia
Hyperkalemia
RED
Recurrent ascites
Hepatic encephalopathy
Hepatocellular carcinoma on immunotherapy
Plan
Continue Holding diuretics
If improved labs, consider restarting tomorrow
Daily BMP
s/p lokelma
--- NOTE | 2024-12-20 11:26 | W.PN.HOSP.TC ---
Today's Communication/Plan
-
holding diuretics for today
Cont lactulose
restart rifaximin - does not take outpt due to solano - engage with GI for other alternatives
paracentesis
anticoag v conservative management - confirm with GI
monitor BMP
Trial Diet
Assessment / Plan
Assessment / Plan
Physical Exam
General: No Apparent Distress
HEENT: Anicteric, Moist mucous membranes and Atraumatic
Respiratory: Clear; No Wheezes or Rales
Cardiac: S1/S2 and Regular Rhythm; No Peripheral Edema
GI: Non Tender and Distended (Firm) Non Tender
Musculoskeletal: No Clubbing, No Cyanosis and No Edema
Skin: Warm and Dry
Neuro: Awake, Alert, Oriented and Tremors (Mild asterixis)
Hematologic/Lymphatic: No Lymphadenopathy
Psych: Calm
#Abdominal pain, resolved
-No evidence of obstruction although possibility of - #main portal vein nonocclusive thrombus
- Due to RED - cannot obtain CT with angio
-Patient abdomen non tender - less likely SBP
-Anticoag v monitoring as per GI
-no evidence of SBO at this time
-ADAT, Trial CLD
#Transaminitis
#Hepatic encephalopathy - Ammonia up to 100 c/w acute decompensation. No bleeding. No obvious infection.
#Cirrhosis
- lactulose 20, then continue w/ 20 qid for now
- GI consultation
-Improving
�Of note patient not taking rifaximin due to solano of medication; resume while inpt
# RED
- hold lasix for today/spironolactone - anticipate starting back soon
- gentle hydration and albumin infusion
- Nephro was consulted from admission
-monitor
-avoid nephrotoxic agents
#Hyperkalemia - recurrent hyperkalemia. Has been treated with Kayexellate in the past. 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
- s/p lokelma
- holding spironolactone - not great candidate if recurrent hyperK
#Thrombocytopenia
-2/2 to cirrhosis
-monitor
#Recurrent Ascites - no tense ascites, there is leukocytosis
- diagnostic/therapeutic paracentesis
#Hyponatremia
� Secondary to ascites, cirrhosis
� Monitor
#DM II
- sliding scale insulin q 6
#Hypothyroid
- continue synthroid
DVT PPX - heparin sq
code status - Full code
Total time spent on today's encounter was 51 minutes which included time spent in counseling the patient/family regarding diagnosis and treatment plan as listed above, goals of care, and symptom management. Case was discussed with nursing staff,
specialists, and care coordinators/case management. All labs and imaging personally reviewed by me. Remainder the time spent in detailed review of previous records, lab data, imaging, and other medical provider documentation.
Anticipated Discharge: > 48 hours
Subjective/Interval History
-
Date of Service: December 20, 2024
No acute events overnight
Objective Data
-
Labs:
Laboratory Results
12/20/24
05:36
WBC 7.7
Hgb 12.0 L
Hct 34.8 L
Plt Count 61 L D
Sodium 130 L
Potassium 4.8
Chloride 97 L
Carbon Dioxide 27
BUN 53 H
Creatinine 1.3
Glucose 143 H
Calcium 8.7
Total Bilirubin 2.7 H
AST 278 H
ALT 78 H
Alkaline Phosphatase 400 H
Vital Signs:
Vital Signs
Temp Pulse Resp BP Pulse Ox
97.5 F 81 16 103/52 97
12/20/24 07:55 12/20/24 07:55 12/20/24 07:55 12/20/24 07:55 12/20/24 08:00
I&O
12/19/24 12/20/24 12/21/24
06:59 06:59 06:59
Output Total 100 / 100
Balance -100 / -100
Review of Systems
-
History Source: Patient
All other systems: Not reviewed unless documented
Data Reviewed
-
Diagnostic Radiology: Report Reviewed by me
CT Scan: Report Reviewed by me
Labs: Labs Reviewed by me
[2024-12-20 11:44] LABS: Glucose - Point of Care 145 mg/dl (70-99)
[2024-12-20] MEDS: XIFAXAN 550 MG PO ×2 (11:53→20:16)
--- NOTE | 2024-12-20 14:40 | CON.GI ---
Consultation
-
Date/Time Consultation Requested: 12/20/2024
Date/Time Consultation Performed: 12/20/2024
Requesting Provider:
Performing Provider: Dr. York
Reason for Consultation: Vomiting, history of HCC
Medical History
Chief Complaint / HPI
Chief Complaint: Vomiting
History of Present Illness:
Silvestre is a 69-year-old male with history of HCC diagnosed in September 2024 currently on immunotherapy who was recently admitted to the hospital last week with hepatic encephalopathy, started on lactulose and Xifaxan, did well and discharged home
12/18/2024 now coming in with episodes of bilious vomiting starting 12/19/2024. Other than vomiting, he denies any abdominal pain, nausea, heartburn, trouble swallowing. He has been on the lactulose and has been having some looser stool on it but no
blood or black stool. He was not able to get the Xifaxan yet due to insurance issues. As per , no episodes of confusion since discharge. He had paracentesis done 12/15/2024, 4400 cc of ascitic fluid removed, no evidence of SBP, IV albumin
given. On admission today, WBC normal, platelets of 61, total bilirubin of 2.7, direct of 1.2, AST of 278, ALT of 78, alkaline phosphatase 400, ammonia of 75 and lipase of 737. Creatinine on his admission was 1.4, today it is 1.3 and at discharge
12/18/2024 with 0.8. Abdominal ultrasound showing heterogeneous coarsened echotexture of the liver suggesting cirrhosis and Doppler showing heterogenicity within the main portal vein raising the possibility of nonocclusive thrombus. Moderate amount
of ascites also noted in the abdomen.
He has hx hypothyroidism, HTN, hypercholesterolemia, prior ricky, NIDDM, PAC's, ,ETOH use and quit 20 years ago then about 2020 pt was noted with fatty liver. He began to follow with Dr. Damon as was placed on [facility] clinical trial with every 6
month MRI with lab and fibroscan testing. He began in July 2024 with wt loss, abdominal pain with EGD noted gastritis but then in September follow up MRI was noted with liver mass. stage III HCC (diagnosed 09/2024) He sees Dr Zaragoza at [facility]. He
started immunotherapy with Tecentriq, Avastin through Dr Zaragoza at [facility] with 4 every 3week infusion last was in Dec 10 via his PORT. He of note was also recently placed on short pred taper for 'inflammation' and possible thyroiditis. He was
placed last week on synthroid. In addition neurontin for hiccups. He was referred to [facility] and was seen by surgical oncology with no surgical intervention due to size of tumor then began immunotherapy with Dr. Zaragoza. He completed 4th treatment
on 12/10 and due 12/31 for 5th treatment. Per family recent tumor markers were improving and he was due for repeat CT 12/26 and radiation evaluation in January. He also developed onset of ascites since mid October with albumin infusions with last
several treatments. He was also started on Lasix and Aldactone with increased dose up to Lasix 80mg and Aldactone 200mg and some elevated K levels. He also recently started Levothyroxine with increasing doses.
Past Medical History
Past Medical History: Other ( Arrhythmias (PAC's), Cancer (heptocellular carcinoma ), HTN, Hypercholesterolemia, Hypothyroidism, NIDDM and Other (GUEVARA cirrhosis, portal HTN, fatty liver, syncope ))
Past Surgical History: Other (Cholecystectomy (for acute gangenous calculous cholecystitis ))
Social History
Tobacco: Non-Smoker
Alcohol: Former (quit 20 yrs ago)
Family History
Family History: Reviewed & Not Pertinent
Allergies / Home Medications
Allergy/AdvReac Type Severity Reaction Status Date / Time
Penicillins Allergy Rash-'as a Verified 12/19/24 17:34
child.'
�Medication �Instructions �Recorded
metformin 500 mg tablet 1,000 mg PO DAILY Diabetes 02/05/14
furosemide 40 mg tablet 80 mg PO DAILY Fluid 11/26/24
Retention/Swelling
spironolactone 100 mg tablet 200 mg PO DAILY Fluid Retention/BP 11/26/24
levothyroxine 112 mcg tablet 112 mcg PO DAILY Thyroid 12/14/24
lidocaine-prilocaine 2.5 %-2.5 % 1 applic topical DAILYPRN PRN port 12/14/24
topical cream access
ondansetron HCl 8 mg tablet 8 mg PO Q8HPRN PRN nausea 12/14/24
Ammonia Levels #1 ea 12/18/24
Comprehensive Metabolic Panel #1 ea 12/18/24
lactulose 10 gram/15 mL oral 20 g (30 mL) PO QID 30 days #3,600 12/18/24
solution mL
rifaximin 550 mg tablet (Xifaxan) 550 mg PO BID liver #60 tabs 12/18/24
Review of Systems
-
All other systems: A 12 pt ROS was Negative except as stated above in HPI
Vital Signs
Temp Pulse Resp BP Pulse Ox
97.5 F 81 16 103/52 97
12/20/24 07:55 12/20/24 07:55 12/20/24 07:55 12/20/24 07:55 12/20/24 08:00
Physical Exam
Exam
GI: Non Tender and Distended
Musculoskeletal: Edema
Neuro: AO x 3 (No asterixis)
Results
WBC 7.7 10^3/uL (4.8-10.8) 12/20/24 05:36
Hgb 12.0 g/dL (13.0-18.0) L 12/20/24 05:36
Hct 34.8 % (39.0-52.0) L 12/20/24 05:36
MCV 92.3 fL (80.0-94.0) 12/20/24 05:36
Plt Count 61 10^3/uL (130-400) L D 12/20/24 05:36
Absolute Neuts (auto) 9.5 10^3/uL (1.4-6.5) H 12/19/24 17:43
Sodium 130 mmol/L (135-145) L 12/20/24 05:36
Potassium 4.8 mmol/L (3.5-5.1) 12/20/24 05:36
Chloride 97 mmol/L (98-107) L 12/20/24 05:36
Carbon Dioxide 27 mmol/L (22-30) 12/20/24 05:36
BUN 53 mg/dl (9-20) H 12/20/24 05:36
Creatinine 1.3 mg/dL (0.7-1.3) 12/20/24 05:36
Calcium 8.7 mg/dl (8.4-10.2) 12/20/24 05:36
Total Bilirubin 2.7 mg/dl (0.2-1.3) H 12/20/24 05:36
AST 278 U/L (17-59) H 12/20/24 05:36
ALT 78 U/L (0-50) H 12/20/24 05:36
Alkaline Phosphatase 400 U/L (38-126) H 12/20/24 05:36
Lipase 737 U/L (23-300) H 12/20/24 05:36
Diagnostic Image Results:
10/23 - US doppler
1. Normal velocity flow within the main portal vein. Right and left portal veins were not well visualized.
2. Monophasic spectral Doppler waveforms within the visualized hepatic veins, new compared to prior ultrasound dated 07/05/2021. No thrombus is discretely visualized, however if concern remains high, consider contrast-enhanced CT or MR of the abdomen.
3. Cirrhotic morphology of liver. Splenomegaly, suggestive of portal hypertension.
4. Moderate intraperitoneal ascites.
12/14 HCT
1. Mild diffuse cerebral and cerebellar volume loss.
2. Mild periventricular white matter leukoaraiosis.
12/14/24 CXR
1. No radiographic evidence for pneumonia.
2. Moderate elevation of the right hemidiaphragm.
3. Right IJ Mediport catheter in place
Prior GI Procedures:
EGD: 07/2024 [facility] gastritis no hx varices per family
Colonoscopy: 09/2024- [facility] no polyps
Assessment / Plan
-
Pt is a 69yo with hx HCC diagnosed in September 2024, currently on immunotherapy at [facility] who was recently admitted last week with hepatic encephalopathy, treated with lactulose and Xifaxan and discharged home 12/18/2024 returns 12/19/2024 with bilious
vomiting, abdominal ultrasound showing possible thrombus in the portal vein, LFTs elevated similar to discharge, not encephalopathic, no fever. Creatinine noted to be elevated at 1.1 admission and currently at 1.3.
He has history of hypothyroidism, HTN, hypercholesterolemia, prior ricky, NIDDM, ETOH use and quit 20 years ago then about 2020 pt was noted with fatty liver. He began to follow with Dr. Stark as was placed on [facility] clinical trial with every 6
month MRI with lab and fibroscan testing. He began in July 2024 with wt loss, abdominal pain with EGD noted gastritis but then in September follow up MRI was noted with liver mass. He was referred to [facility] and was seen by surgical oncology with no
surgical intervention due to size of tumor then began immunotherapy with Dr. Zaragoza. He completed 4th treatment on 12/10 and due 12/31 for 5th treatment. Per family recent tumor markers were improving and he was due for repeat CT 12/26 and radiation
evaluation in January. He also developed onset of ascites since mid October with albumin infusions with last several treatments. He was also started on Lasix and Aldactone with increased dose up to Lasix 80mg and Aldactone 200mg and some elevated K
levels. He also recently started Levothyroxine with increasing doses. Last admission noted with ammonia level of 53 and pt was started on Lactulose 20mg TID with improvement.
hx EGD 07/2024 gastritis no varices, colonoscopy 09/2024 no polyps--- per family with Dr. Damon.
-Recent hepatic encephalopathy
-hx GUEVARA cirrhosis
-liver CA with current immunotherapy treatment
-ascites with weekly paracentesis
- HTN
- hypercholesterolemia
- prior ricky
- NIDDM
- ETOH use quit 20 years ago
- 12/15/24-s/p para for 4400 neg SBP and albumin infused
PLAN:
New diagnosis of possible portal vein thrombus on abdominal Doppler ultrasound. Will do MRI of the abdomen to evaluate that further.
Discussed with Dr. Kay from nephrology, hold off on abdominal CT scan given recent elevation in creatinine but okay for MRI.
Hematology/oncology evaluation given new portal vein thrombus recommendations regarding anticoagulation.
Currently Lasix and Aldactone are on hold for recent increase in creatinine, as per nephrology, will hold off on paracentesis at this time. Will plan for Sunday, needs 50 g of albumin infusion
No fevers or leukocytosis or ymptoms suggesting hepatic encephalopathy at this time.
Continue lactulose 20 g 4 times a day and Xifaxan 550 mg twice a day. Will titrate the dose of lactulose based on the bowel movements.
-Okay for clear liquid diet, added protein shakes, once vomiting episodes resolved, will advance to full liquid diet and then 2 g sodium diet.
Will check INR to calculate the MELD 3.0
OP follow up with Dr. Zaragoza and Dr. Damon
updated and reviewed with for plan
Will follow
-
-
Thank you for consultation and allowing me to participate in the patient's care. Please call the addiction counselor GI physician during the after hours with any questions or concerns.
[2024-12-20 15:55] VITALS: BP 121/66
[2024-12-20] MEDS: NEURONTIN 100 MG PO ×2 (16:31→20:43)
[2024-12-20 17:02] LABS: Glucose - Point of Care 112 mg/dl (70-99)
[2024-12-20] MEDS: NOVOLOG FLEXPEN-LOW RESISTANCE SC (17:11)
[2024-12-20 21:02] LABS: Glucose - Point of Care 138 mg/dl (70-99)
[2024-12-20 23:29] VITALS: BP 113/70
[2024-12-21 00:08] LABS: Glucose - Point of Care 115 mg/dl (70-99)
[2024-12-21] MEDS: SYNTHROID 112 MCG PO (06:07)
[2024-12-21 07:55] VITALS: BP 99/56
[2024-12-21] MEDS: DUPHALAC/CHRONULAC 20 GRAMS PO ×4 (08:21→22:07)
[2024-12-21] MEDS: XIFAXAN 550 MG PO ×2 (08:21→22:07)
[2024-12-21] MEDS: HEPARIN 5000 UNITS SC ×2 (08:21→16:51)
[2024-12-21 08:29] LABS: Glucose - Point of Care 94 mg/dl (70-99)
[2024-12-21] MEDS: NOVOLOG FLEXPEN-LOW RESISTANCE SC (08:29)
[2024-12-21 08:39] LABS: INR 1.11; PT 14.6 Sec (11.4-14.6)
[2024-12-21 11:39] LABS: Hematocrit 37.7 % (39.0-52.0); Hemoglobin 12.9 g/dL (13.0-18.0); Mean Corp Hgb Conc. 34.2 g/dL (33.0-37.0); Mean Corpuscular Volume 94.3 fL (80.0-94.0); Platelet Count 74 10^3/uL (130-400); Red Cell Dist. Width 16.8 % (11.5-14.5)
[2024-12-21 11:47] LABS: ALT (SGPT) 94 U/L (0-50); AST (SGOT) 369 U/L (17-59); Albumin 2.8 g/dl (3.5-5.0); Alkaline Phosphatase 477 U/L (38-126); Blood Urea Nitrogen 51 mg/dl (9-20); Calcium 8.1 mg/dl (8.4-10.2); Carbon Dioxide 27 mmol/L (22-30); Chloride 95 mmol/L (98-107); Estimated Creatinine Clearance 49 ml/min; Glucose 171 mg/dl (70-99); Potassium 4.8 mmol/L (3.5-5.1); Sodium 129 mmol/L (135-145); Total Protein 5.6 g/dl (6.3-8.2); eGFR 54.41
[2024-12-21 11:53] LABS: Glucose - Point of Care 153 mg/dl (70-99)
[2024-12-21] MEDS: NOVOLOG FLEXPEN-LOW RESISTANCE 1 UNITS SC (12:10)
--- NOTE | 2024-12-21 12:15 | CM ---
Initial assessment completed with patient who lives with his in a 2 story home plus basement with B/B on 2nd and 04/10 bath in basement, 2 steps to enter. [employer] patient was independent in ADL's and ambulation, drives. No DME or in-home services.
Does have a HC-POA. No VA benefits. No psychiatric hospitalizations. PCP is Dr. Juliocesar Jones. Pharmacy is [facility] in [place]. Discharge POC: Anticipate home with no needs.
--- NOTE | 2024-12-21 12:38 | W.PN.NEPH.PH ---
Today's Communication / Plan
-
follow BMP
Assessment/Plan
-
Assessment
Hyponatremia
Hyperkalemia
RED after doubling of diuretics as OP
Recurrent ascites
Hepatic encephalopathy
Hepatocellular carcinoma on immunotherapy
Plan
Continue holding diuretics
Daily BMP
await MRI reading
-
-
Date of Service: December 21, 2024
CC / HPI / ROS
-
Chief Complaint:
RED
History of Present Illness:
RED/Cr stable 1.4
Na stable 129
BP stable
K improved with lokelma
Review of Systems:
no CP/SOB
Labs
-
Labs:
WBC 10.8 10^3/uL (4.8-10.8) 12/21/24 10:57
RBC 4.00 10^6/uL (4.70-6.10) L 12/21/24 10:57
Hgb 12.9 g/dL (13.0-18.0) L 12/21/24 10:57
Hct 37.7 % (39.0-52.0) L 12/21/24 10:57
Plt Count 74 10^3/uL (130-400) L D 12/21/24 10:57
Sodium 129 mmol/L (135-145) L 12/21/24 10:57
Potassium 4.8 mmol/L (3.5-5.1) 12/21/24 10:57
Chloride 95 mmol/L (98-107) L 12/21/24 10:57
Carbon Dioxide 27 mmol/L (22-30) 12/21/24 10:57
BUN 51 mg/dl (9-20) H 12/21/24 10:57
Creatinine 1.4 mg/dL (0.7-1.3) H 12/21/24 10:57
eGFR 54.41 12/21/24 10:57
Glucose 171 mg/dl (70-99) H 12/21/24 10:57
Calcium 8.1 mg/dl (8.4-10.2) L 12/21/24 10:57
Albumin 2.8 g/dl (3.5-5.0) L 12/21/24 10:57
Physical Exam
-
Vital Signs:
Vital Signs
Temp Pulse Resp BP Pulse Ox
97.6 F 86 16 99/56 96
12/21/24 07:55 12/21/24 07:55 12/21/24 07:55 12/21/24 07:55 12/21/24 08:20
Cardiovascular:: Regular rate and rhythm
Respiratory:: Bilateral: Coarse
Lung Excursion:: Normal
Abdomen:: Nontender and Soft
Bowel Sounds:: Normal
Extremity Edema:: None: Bilateral:
--- NOTE | 2024-12-21 13:06 | W.PN.HOSP.TC ---
Today's Communication/Plan
-
ADAT
MR reading - anticoagulation accordingly
Assessment / Plan
Assessment / Plan
Physical Exam
General: No Apparent Distress
HEENT: Anicteric, Moist mucous membranes and Atraumatic
Respiratory: Clear; No Wheezes or Rales
Cardiac: S1/S2 and Regular Rhythm; No Peripheral Edema
GI: Non Tender and Distended (Firm) Non Tender
Musculoskeletal: No Clubbing, No Cyanosis and No Edema
Skin: Warm and Dry
Neuro: Awake, Alert, Oriented and Tremors (Mild asterixis)
Hematologic/Lymphatic: No Lymphadenopathy
Psych: Calm
#Abdominal pain, resolved
-No evidence of obstruction although possibility of - #main portal vein nonocclusive thrombus
- Due to RED - cannot obtain CT with angio
-MRI abdomen to eval further
-Heme eval for anticoagulation recs
-Patient abdomen non tender - less likely SBP
-Anticoag v monitoring as per GI
-no evidence of SBO at this time
-tolerating FLD - ADAT as per GI
#Transaminitis
#Hepatic encephalopathy - Ammonia up to 100 c/w acute decompensation. No bleeding. No obvious infection.
#Cirrhosis
- lactulose 20, then continue w/ 20 qid for now
- GI consultation
-Improving
�Of note patient not taking rifaximin due to [place] of medication; resume while inpt
# RED
- hold lasix for today/spironolactone - anticipate starting back soon
- gentle hydration and albumin infusion
- Nephro was consulted from admission
-monitor bmp
-avoid nephrotoxic agents
#Hyperkalemia - recurrent hyperkalemia. Has been treated with Kayexellate in the past. 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
- s/p lokelma
- holding spironolactone - not great candidate if recurrent hyperK - may need half dose
#Thrombocytopenia
-2/2 to cirrhosis
-monitor
#Recurrent Ascites - no tense ascites, there is leukocytosis
- diagnostic/therapeutic paracentesis
#Hyponatremia
� Secondary to ascites, cirrhosis
� Monitor
#DM II
- sliding scale
#Hypothyroid
- continue synthroid
DVT PPX - heparin sq
code status - Full code
Total time spent on today's encounter was 52 minutes which included time spent in counseling the patient/family regarding diagnosis and treatment plan as listed above, goals of care, and symptom management. Case was discussed with nursing staff,
specialists, and care coordinators/case management. All labs and imaging personally reviewed by me. Remainder the time spent in detailed review of previous records, lab data, imaging, and other medical provider documentation.
Anticipated Discharge: 24 - 48 hours
Subjective/Interval History
-
Date of Service: December 21, 2024
PO tolerating
Objective Data
-
Labs:
Laboratory Results
12/21/24 12/21/24
05:58 10:57
WBC 10.8
Hgb 12.9 L
Hct 37.7 L
Plt Count 74 L D
PT 14.6
INR 1.11
Sodium 129 L
Potassium 4.8
Chloride 95 L
Carbon Dioxide 27
BUN 51 H
Creatinine 1.4 H
Glucose 171 H
Calcium 8.1 L
Total Bilirubin 2.5 H
AST 369 H
ALT 94 H
Alkaline Phosphatase 477 H
Vital Signs:
Vital Signs
Temp Pulse Resp BP Pulse Ox
97.6 F 86 16 99/56 96
12/21/24 07:55 12/21/24 07:55 12/21/24 07:55 12/21/24 07:55 12/21/24 08:20
I&O
0912/21/24 12/22/24
06:59 06:59 06:59
Intake Total 900 / 900
Output Total 100 / 100
Balance -100 / -100 900 / 900
Review of Systems
-
History Source: Patient
All other systems: Not reviewed unless documented
Data Reviewed
-
Diagnostic Radiology: Report Reviewed by me
CT Scan: Report Reviewed by me
Labs: Labs Reviewed by me
--- NOTE | 2024-12-21 13:28 | W.PN.GI.CBS2 ---
Today's Communication / Plan
-
New diagnosis of possible portal vein thrombus on abdominal Doppler ultrasound. Will do MRI of the abdomen to evaluate that further.
Await MRI abdomen to evaluate for portal vein thrombus noted on the US.
Hematology/oncology evaluation given new portal vein thrombus recommendations regarding anticoagulation.
Currently Lasix and Aldactone are on hold for recent increase in creatinine, as per nephrology, will hold off on paracentesis at this time. Will plan for Sunday if creatinine improved, needs 50 g of albumin infusion
No fevers or leukocytosis or ymptoms suggesting hepatic encephalopathy at this time.
Continue lactulose 20 g 4 times a day and Xifaxan 550 mg twice a day. Will titrate the dose of lactulose based on the bowel movements.
-Okay for low fat and 2 g sodium diet.
Will check INR to calculate the MELD 3.0
OP follow up with Dr. Zaragoza and Dr. Damon
updated and reviewed with for plan
Assessment / Plan
-
Pt is a 69yo with hx HCC diagnosed in September 2024, currently on immunotherapy at [facility] who was recently admitted last week with hepatic encephalopathy, treated with lactulose and Xifaxan and discharged home 12/18/2024 returns 12/19/2024 with bilious
vomiting, abdominal ultrasound showing possible thrombus in the portal vein, LFTs elevated similar to discharge, not encephalopathic, no fever. Creatinine noted to be elevated at 1.1 admission and currently at 1.3.
He has history of hypothyroidism, HTN, hypercholesterolemia, prior ricky, NIDDM, ETOH use and quit 20 years ago then about 2020 pt was noted with fatty liver. He began to follow with Dr. Stark as was placed on Usha clinical trial with every 6
month MRI with lab and fibroscan testing. He began in July 2024 with wt loss, abdominal pain with EGD noted gastritis but then in September follow up MRI was noted with liver mass. He was referred to [facility] and was seen by surgical oncology with no
surgical intervention due to size of tumor then began immunotherapy with Dr. Zaragoza. He completed 4th treatment on 12/10 and due 12/31 for 5th treatment. Per family recent tumor markers were improving and he was due for repeat CT 12/26 and radiation
evaluation in January. He also developed onset of ascites since mid October with albumin infusions with last several treatments. He was also started on Lasix and Aldactone with increased dose up to Lasix 80mg and Aldactone 200mg and some elevated K
levels. He also recently started Levothyroxine with increasing doses. Last admission noted with ammonia level of 53 and pt was started on Lactulose 20mg TID with improvement.
hx EGD 07/2024 gastritis no varices, colonoscopy 09/2024 no polyps--- per family with Dr. Damon.
-Recent hepatic encephalopathy
-hx GUEVARA cirrhosis
-liver CA with current immunotherapy treatment
-ascites with weekly paracentesis
- HTN
- hypercholesterolemia
- prior ricky
- NIDDM
- ETOH use quit 20 years ago
- 12/15/24-s/p para for 4400 neg SBP and albumin infused
PLAN:
New diagnosis of possible portal vein thrombus on abdominal Doppler ultrasound. Will do MRI of the abdomen to evaluate that further.
Await MRI abdomen to evaluate for portal vein thrombus noted on the US.
Hematology/oncology evaluation given new portal vein thrombus recommendations regarding anticoagulation.
Currently Lasix and Aldactone are on hold for recent increase in creatinine, as per nephrology, will hold off on paracentesis at this time. Will plan for Sunday if creatinine improved, needs 50 g of albumin infusion
No fevers or leukocytosis or ymptoms suggesting hepatic encephalopathy at this time.
Continue lactulose 20 g 4 times a day and Xifaxan 550 mg twice a day. Will titrate the dose of lactulose based on the bowel movements.
-Okay for low fat and 2 g sodium diet.
Will check INR to calculate the MELD 3.0
OP follow up with Dr. Zaragoza and Dr. Damon
updated and reviewed with for plan
Will follow
Subjective
Subjective
Date of Service: December 21, 2024
No abdominal pain, nausea, vomitng, Had arge non bloody BM last night. Tolerating full liquid diet
Objective
Data Reviewed
Laboratory Data:
Laboratory Results
12/21/24 10:57
12/21/24 10:57
Laboratory Results
PT 14.6 Sec (11.4-14.6) 12/21/24 05:58
INR 1.11 12/21/24 05:58
Magnesium 2.5 mg/dl (1.6-2.3) H 12/20/24 05:36
Total Bilirubin 2.5 mg/dl (0.2-1.3) H 12/21/24 10:57
AST 369 U/L (17-59) H 12/21/24 10:57
ALT 94 U/L (0-50) H 12/21/24 10:57
Alkaline Phosphatase 477 U/L (38-126) H 12/21/24 10:57
Lipase 737 U/L (23-300) H 12/20/24 05:36
Vital Signs and I&O:
Vital Signs
Temp Pulse Resp BP Pulse Ox
97.6 F 86 16 99/56 96
12/21/24 07:55 12/21/24 07:55 12/21/24 07:55 12/21/24 07:55 12/21/24 08:20
I&O
12/20/24 12/21/24 12/22/24
06:59 06:59 06:59
Intake Total 900 / 900
Output Total 100 / 100
Balance -100 / -100 900 / 900
Physical Exam
Physical Exam
GI: Soft, Distended and Non Distended
Extremities: No Edema
[2024-12-21 15:55] VITALS: BP 119/70
[2024-12-21 16:45] LABS: Glucose - Point of Care 265 mg/dl (70-99)
[2024-12-21] MEDS: NOVOLOG FLEXPEN-LOW RESISTANCE 3 UNITS SC (16:51)
--- NOTE | 2024-12-21 16:53 | CON.ONC ---
Consultation
-
Date Consultation Requested: 12/20/24
Date Consultation Performed: 12/21/24
Requesting Provider: Edward Hall MD
Performing Provider: Julianne Short MD
Reason for Consultation: HCC, possible portal vein thrombosis
Impression
Impression
HCC, stage III, on Tecentriq/Avastin
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
Plan
Plan
Prior to MRI being resulted, reviewed options for anticoagulation which would have been limited to Lovenox with his degree of liver dysfunction, not a candidate for Eliquis or warfarin.
With MRI showing tumor thrombus, no role for anticoagulation.
Platelets as expected in setting of liver disease and splenomegaly.
Pt to return to the care of his [facility] physicians.
Thank you for consult, signing off, please call if further Q's.
Patient History
History of Present Illness
69-year-old man with history of cirrhosis and a more recent diagnosis of stage III hepatocellular carcinoma, not a surgical candidate. He was started on Tecentriq/Avastin on October 01 and has had 4 treatments so far, most recently on 12/10. Patient's
tells me that his AFP has been improving and he is scheduled for a restaging scan on 12/26. He is under the care of Dr. Rhys Braun at [facility]. He came to the ER with episode of vomiting and abdominal tightness. He had started taking lactulose
on the morning of admission and in the afternoon, report had onset of bilious emesis. He had been discharged from [facility] the day prior. He underwent an ultrasound on 12/20 which reported heterogeneity of color Doppler flow within the main
portal vein due from ultrasound of 10/1724. We are consulted regarding whether to start anticoagulation. While I was meeting with patient and , MRI was resulted with impression of tumor thrombus rather than bland thrombus. Chronicity is
unclear.
Past-Medical/Surgical History
Past Medical History
Past Medical History: Other ( Arrhythmias (PAC's), Cancer (heptocellular carcinoma ), HTN, Hypercholesterolemia, Hypothyroidism, NIDDM and Other (GUEVARA cirrhosis, portal HTN, fatty liver, syncope ))
Past Surgical History: Other (Cholecystectomy (for acute gangenous calculous cholecystitis ))
Social History
Tobacco: Non-Smoker
Alcohol: Former (quit 20 yrs ago)
Family History
Family History: Reviewed & Not Pertinent
Patient Medication
�Medication �Instructions �Recorded �Confirmed �Last Taken �Type
metformin 500 mg tablet 1,000 mg PO DAILY Diabetes 02/05/14 12/19/24 12/12/24 History
furosemide 40 mg tablet 80 mg PO DAILY Fluid 11/26/24 12/19/24 12/13/24 History
Retention/Swelling
spironolactone 100 mg tablet 200 mg PO DAILY Fluid Retention/BP 11/26/24 12/19/24 12/13/24 History
levothyroxine 112 mcg tablet 112 mcg PO DAILY Thyroid 12/14/24 12/19/24 12/13/24 History
lidocaine-prilocaine 2.5 %-2.5 % 1 applic topical DAILYPRN PRN port 12/14/24 12/19/24 Unknown History
topical cream access
ondansetron HCl 8 mg tablet 8 mg PO Q8HPRN PRN nausea 12/14/24 12/19/24 Unknown History
Ammonia Levels #1 ea 12/18/24 Unknown Rx
Comprehensive Metabolic Panel #1 ea 12/18/24 Unknown Rx
lactulose 10 gram/15 mL oral 20 g (30 mL) PO QID 30 days #3,600 12/18/24 12/19/24 Unknown Rx
solution mL
rifaximin 550 mg tablet (Xifaxan) 550 mg PO BID liver #60 tabs 12/18/24 Unknown Rx
Active Medications
Generic Name Dose Route Start Last Admin
Trade Name Freq PRN Reason Stop Dose Admin
Acetaminophen 650 mg 12/20/24 03:37
Acetaminophen 325 Mg Tablet PO 01/17/25 03:36
Q4HPRN PRN
mild pain/BALL/temp> 100.4F
Bisacodyl 10 mg 12/20/24 03:37
Bisacodyl 10 Mg Rectal Suppository RECTAL 01/17/25 03:36
[id number] PRN
constipation
Dextrose 12.5 grams 12/20/24 04:00
Dextrose 50% (0.5 Grams/Ml) 50 Ml Syringe IV 01/17/25 03:59
[id number] PRN
hypoglycemia
Protocol
Gabapentin 100 mg 12/20/24 16:24 12/20/24 20:43
Gabapentin 100 Mg Capsule PO 01/17/25 16:23 100 mg
TIDPRN PRN Administration
HICCUPS
Glucagon 1 mg 12/20/24 04:00
Glucagon 1 Mg Vial IM 01/17/25 03:59
PRN PRN
hypoglycemia - no IV access
Protocol
Heparin Sodium 5,000 units 12/20/24 03:37 12/21/24 08:21
Heparin 5,000 Units/Ml 1 Ml Vial SC 01/17/25 03:36 5,000 units
Q8 JUNE Administration
Heparin Sodium (Porcine) 500 unit 12/20/24 05:45
Heparin Flush Pf (100 Unit/Ml) 5 Ml Syringe IV 01/17/25 05:44
PER PROTOCOL JUNE
Insulin Aspart 0 units 12/20/24 16:30 12/21/24 12:10
Insulin Aspart Low Resistance 300 Units/3 Ml Pen.Injctr SC 01/17/25 16:29 1 units
AC JUNE Administration
Protocol
Lactulose 20 grams 12/20/24 08:00 12/21/24 12:10
Lactulose Solution (20 Grams/30 Ml) 30 Ml Cup PO 01/17/25 07:59 20 grams
QID JUNE Administration
Levothyroxine Sodium 112 mcg 12/20/24 06:00 12/21/24 06:07
Levothyroxine 112 Mcg Tablet PO 01/17/25 05:59 112 mcg
DAILY @ 0600 JUNE Administration
Ondansetron HCl 4 mg 12/20/24 03:37
Ondansetron 4 Mg/2 Ml Vial IV 01/17/25 03:36
Q6HPRN PRN
nausea and vomiting
Oxycodone HCl 5 mg 12/20/24 03:37
Oxycodone 5 Mg Regular Release Tablet PO 01/03/25 03:36
Q4HPRN PRN
moderate pain
Polyethylene Glycol 17 grams 12/20/24 03:37
Polyethylene Glycol Powder 17 Grams Packet PO 01/17/25 03:36
DAILYPRN PRN
constipation
Rifaximin 550 mg 12/20/24 11:45 12/21/24 08:21
Rifaximin 550 Mg Tablet PO 550 mg
BID JUNE Administration
Senna/Docusate Sodium 1 tablet 12/20/24 03:37
Docusate W/Senna (Fani-Colace) Tablet PO 01/17/25 03:36
BIDPRN PRN
constipation
Sodium Chloride 0 flush 12/19/24 23:00
Sodium Chloride 0.9% (Flush) Syringe IV 01/16/25 22:59
PER PROTOCOL JUNE
Review of Systems
-
Unable to obtain full review of systems at this time due to: Other
History Source: Patient, Family and Records
All Other Systems: Reviewed and Negative
Constitutional: Reports Weight Loss, No Appetite and Fatigue
EENT: Reports No Symptoms
Respiratory: Reports No Symptoms
Cardiac: Reports No Symptoms
GI: Reports Nausea and Vomiting
Breast: Reports No Symptoms
: Reports No Symptoms
Musculoskeletal: Reports No Symptoms
Skin: Reports No Symptoms
Neuro: Reports No Symptoms
Endocrine: Reports No Symptoms
Hematologic/Lymphatic: Denies Bleeding or Bruising
Allergy / Immunology: Reports No Symptoms
Psych: Reports No Symptoms
Physical Exam
-
Patient appears chronically and acutely ill, somewhat lethargic. Appears stated age. Head atraumatic, normocephalic. Sclera anicteric, conjunctiva pink, oropharynx clear. No cervical, supraclavicular or axillary adenopathy. Heart rate and rhythm
regular, no murmurs, rubs or gallops. Lungs clear without rales or rhonchi. No kyphosis. Abdomen soft. Extremities without clubbing, cyanosis or edema.Neurologic exam grossly non-focal, no hemiplegia.
Labs
Lab Results
WBC 10.8 10^3/uL (4.8-10.8) 12/21/24 10:57
RBC 4.00 10^6/uL (4.70-6.10) L 12/21/24 10:57
Hgb 12.9 g/dL (13.0-18.0) L 12/21/24 10:57
Hct 37.7 % (39.0-52.0) L 12/21/24 10:57
MCV 94.3 fL (80.0-94.0) H 12/21/24 10:57
MCH 32.3 pg (27.0-31.0) H 12/21/24 10:57
MCHC 34.2 g/dL (33.0-37.0) 12/21/24 10:57
RDW 16.8 % (11.5-14.5) H 12/21/24 10:57
Plt Count 74 10^3/uL (130-400) L D 12/21/24 10:57
MPV 10.6 fL (7.4-10.4) H 12/21/24 10:57
Abs Immat Gran (auto) 0.1 10^3/uL (0-0.05) H 12/19/24 17:43
Absolute Neuts (auto) 9.5 10^3/uL (1.4-6.5) H 12/19/24 17:43
Absolute Lymphs (auto) 1.8 10^3/uL (1.2-3.4) 12/19/24 17:43
Absolute Monos (auto) 1.8 10^3/uL (0.1-0.6) H 12/19/24 17:43
Absolute Eos (auto) 0.0 10^3/uL (0-0.7) 12/19/24 17:43
Absolute Basos (auto) 0.0 10^3/uL (0-0.2) 12/19/24 17:43
Immature Gran % 0.8 % (0-0.5) H 12/19/24 17:43
Neutrophils % 71.5 % (42.2-75.2) 12/19/24 17:43
Lymphocytes % 13.4 % (20.5-51.1) L 12/19/24 17:43
Monocytes % 13.8 % (1.7-9.3) H 12/19/24 17:43
Eosinophils % 0.2 % (0-6) 12/19/24 17:43
Basophils % 0.3 % (0-2) 12/19/24 17:43
Creatinine 1.4 mg/dL (0.7-1.3) H 12/21/24 10:57
Vital Signs
Vital Signs
Temp Pulse Resp BP Pulse Ox
97.3 F 91 16 119/70 100
12/21/24 15:55 12/21/24 15:55 12/21/24 15:55 12/21/24 15:55 12/21/24 15:55
[2024-12-21] MEDS: NEURONTIN 100 MG PO (17:02)
[2024-12-21 21:26] LABS: Glucose - Point of Care 168 mg/dl (70-99)
[2024-12-21 23:14] VITALS: BP 114/64
[2024-12-22] MEDS: HEPARIN 5000 UNITS SC ×4 (00:01→23:38)
[2024-12-22] MEDS: NEURONTIN 100 MG PO (00:03)
[2024-12-22] MEDS: SYNTHROID 112 MCG PO (05:29)
[2024-12-22 07:25] LABS: ALT (SGPT) 85 U/L (0-50); AST (SGOT) 243 U/L (17-59); Albumin 2.7 g/dl (3.5-5.0); Alkaline Phosphatase 495 U/L (38-126); Blood Urea Nitrogen 51 mg/dl (9-20); Calcium 8.2 mg/dl (8.4-10.2); Carbon Dioxide 24 mmol/L (22-30); Chloride 95 mmol/L (98-107); Estimated Creatinine Clearance 57 ml/min; Glucose 139 mg/dl (70-99); Hematocrit 38.2 % (39.0-52.0); Hemoglobin 13.3 g/dL (13.0-18.0); Mean Corp Hgb Conc. 34.8 g/dL (33.0-37.0); Mean Corpuscular Volume 94.1 fL (80.0-94.0); Platelet Count 69 10^3/uL (130-400); Potassium 4.5 mmol/L (3.5-5.1); Red Cell Dist. Width 16.9 % (11.5-14.5); Sodium 127 mmol/L (135-145); Total Protein 5.6 g/dl (6.3-8.2); eGFR > 60.00
[2024-12-22 08:02] LABS: Glucose - Point of Care 134 mg/dl (70-99)
[2024-12-22 08:16] VITALS: BP 105/54
[2024-12-22 08:30] VITALS: BP 113/69; BP_SYST 88
[2024-12-22] MEDS: NOVOLOG FLEXPEN-LOW RESISTANCE SC (08:54)
[2024-12-22] MEDS: XIFAXAN 550 MG PO ×2 (09:38→20:35)
[2024-12-22] MEDS: DUPHALAC/CHRONULAC 20 GRAMS PO ×4 (09:38→20:37)
[2024-12-22 10:29] LABS: Body Fluid Second Tech US
[2024-12-22 11:42] LABS: Glucose - Point of Care 276 mg/dl (70-99)
--- NOTE | 2024-12-22 12:01 | W.PN.HOSP.TC ---
Today's Communication/Plan
-
Albumin
Assessment / Plan
Assessment / Plan
69yo M with PMHx of cholecystectomy, stage 3 HCC, liver cirrhosis, HTN, HLD, hypothyroidism, recent admission for hepatic encephalopathy readmitted after eposode of vomiting found recurrent hepatic encephalopathy and RED
A/P:
#Acute hepatic encephalopathy
#RED, r/o HRS
#Hyponatremia
#Hyperkalemia
#Liver cirrhosis with ascites
follow Cr
avoid diuretics
attempt Albumin for volume expansion
s/p paracentesis on 12/22/24 - cell count not concerning for SBP, follow Cx. Transudate with low protein - hepatic origin
COnt rifaximin and lactulose as per GI
follow and correct electrolytes
#elevated LFT 2/2 cirrhosis
follow LFT
#elevated lipase
MRI showed cystic foci, however no acute inflammation
#1.8 x 0.8 cm nodule along the right diaphragmatic vicki
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
Onc followed - no indication for AC with tumor thrombosis
cont outpatient follow up with established oncologist
#htrombocytopenia
chronic 2/2 cirrhosis
follow CBC
#DM type 2 with neuropahty
Accuchecks
DM diet
Insulin SS
hold Metformin
#Hypothyroidism
#EssentiaL HTN
cont home meds
#Renal cyst L
DVtppx heparin while plt >50k
Full code
I have spent at least 54min reviewing chart, test results, communication with consultants and providing direct patient care
Anticipated Discharge: > 48 hours
Subjective/Interval History
-
Date of Service: December 22, 2024
Objective Data
-
Labs:
Laboratory Results
12/22/24
06:00
WBC 10.4
Hgb 13.3
Hct 38.2 L
Plt Count 69 L
Sodium 127 L
Potassium 4.5
Chloride 95 L
Carbon Dioxide 24
BUN 51 H
Creatinine 1.2
Glucose 139 H
Calcium 8.2 L
Total Bilirubin 2.3 H
AST 243 H
ALT 85 H
Alkaline Phosphatase 495 H
Vital Signs:
Vital Signs
Temp Pulse Resp BP Pulse Ox
97.9 F 88 18 113/69 98
12/22/24 08:30 12/22/24 08:30 12/22/24 08:30 12/22/24 08:30 12/22/24 08:30
I&O
12/21/24 12/22/24 12/23/24
06:59 06:59 06:59
Intake Total 900 / 900 240 / 240
Balance 900 / 900 240 / 240
Review of Systems
-
History Source: Patient
All other systems: Reviewed and negative
Physical Exam
-
General: No Apparent Distress
HEENT: Normocephalic
Respiratory: Clear to Auscultation
GI: Soft, Nontender and Distended
Musculoskeletal: No Clubbing, No Cyanosis and No Edema
Neuro: Awake
Psych: Calm
[2024-12-22] MEDS: NOVOLOG FLEXPEN-LOW RESISTANCE 3 UNITS SC ×2 (12:35→17:29)
--- NOTE | 2024-12-22 12:42 | W.PN.NEPH.PH ---
Today's Communication / Plan
-
Albumin
Holding diuretics
Assessment/Plan
-
Assessment
Hyponatremia= 129�127
Hyperkalemia
RED after doubling of diuretics as OP= creatinine 1.2
Recurrent ascites
Hepatic encephalopathy
Hepatocellular carcinoma on immunotherapy
Plan
Continue holding diuretics
Daily BMP
Portal hypertension on MRI
Status post paracentesis today
Sodium decreased slightly 127 will repeat in the morning
Continue fluid restriction
Albumin
-
-
Date of Service: December 22, 2024
CC / HPI / ROS
-
Chief Complaint:
RED
History of Present Illness:
RED/Cr
Na remains low
BP stable
K improved with lokelma
Review of Systems:
no CP/SOB
Labs
-
Labs:
WBC 10.4 10^3/uL (4.8-10.8) 12/22/24 06:00
RBC 4.06 10^6/uL (4.70-6.10) L 12/22/24 06:00
Hgb 13.3 g/dL (13.0-18.0) 12/22/24 06:00
Hct 38.2 % (39.0-52.0) L 12/22/24 06:00
Plt Count 69 10^3/uL (130-400) L 12/22/24 06:00
Sodium 127 mmol/L (135-145) L 12/22/24 06:00
Potassium 4.5 mmol/L (3.5-5.1) 12/22/24 06:00
Chloride 95 mmol/L (98-107) L 12/22/24 06:00
Carbon Dioxide 24 mmol/L (22-30) 12/22/24 06:00
BUN 51 mg/dl (9-20) H 12/22/24 06:00
Creatinine 1.2 mg/dL (0.7-1.3) 12/22/24 06:00
eGFR > 60.00 12/22/24 06:00
Glucose 139 mg/dl (70-99) H 12/22/24 06:00
Calcium 8.2 mg/dl (8.4-10.2) L 12/22/24 06:00
Albumin 2.7 g/dl (3.5-5.0) L 12/22/24 06:00
Physical Exam
-
Vital Signs:
Vital Signs
Temp Pulse Resp BP Pulse Ox
97.9 F 88 18 113/69 98
12/22/24 08:30 12/22/24 08:30 12/22/24 08:30 12/22/24 08:30 12/22/24 08:30
Cardiovascular:: Regular rate and rhythm
Respiratory:: Bilateral: Coarse
Lung Excursion:: Normal
Abdomen:: Nontender and Soft
Bowel Sounds:: Normal
Extremity Edema:: None: Bilateral:
[2024-12-22] MEDS: FLEXBUMIN 100 IV ×2 (13:11→20:34)
[2024-12-22 13:19] VITALS: BP 106/56
[2024-12-22 15:47] VITALS: BP 114/61
[2024-12-22 16:06] VITALS: BP 106/58
[2024-12-22 16:50] LABS: Glucose - Point of Care 261 mg/dl (70-99)
--- NOTE | 2024-12-22 17:40 | W.PN.GI.CBS2 ---
Today's Communication / Plan
-
PLAN:
New diagnosis of possible portal vein thrombus on abdominal Doppler ultrasound. Will do MRI of the abdomen to evaluate that further.
MRI abdomen showing possible tumor invasion rather than thrombus
Hematology/oncology recommendations noted, no role for anticoagulation.
Status post paracentesis this morning, 3.2 L of fliud removed and no SBP Received IV albumin
Currently Lasix and Aldactone are on hold for recent increase in creatinine, as per nephrology, will hold off on diuretics for now
No fevers or leukocytosis or symptoms suggesting hepatic encephalopathy at this time.
Continue lactulose 20 g 4 times a day and Xifaxan 550 mg twice a day. Will titrate the dose of lactulose based on the bowel movements.
-Okay for low fat and 2 g sodium diet.
12/21/24 MELD 3.0-20
OP follow up with Dr. Zaragoza and Dr. Damon
Will follow
Assessment / Plan
-
Pt is a 69yo with hx HCC diagnosed in September 2024, currently on immunotherapy at [facility] who was recently admitted last week with hepatic encephalopathy, treated with lactulose and Xifaxan and discharged home 12/18/2024 returns 12/19/2024 with bilious
vomiting, abdominal ultrasound showing possible thrombus in the portal vein, LFTs elevated similar to discharge, not encephalopathic, no fever. Creatinine noted to be elevated at 1.1 admission and currently at 1.3.
He has history of hypothyroidism, HTN, hypercholesterolemia, prior ricky, NIDDM, ETOH use and quit 20 years ago then about 2020 pt was noted with fatty liver. He began to follow with Dr. Stark as was placed on Usha clinical trial with every 6
month MRI with lab and fibroscan testing. He began in July 2024 with wt loss, abdominal pain with EGD noted gastritis but then in September follow up MRI was noted with liver mass. He was referred to [facility] and was seen by surgical oncology with no
surgical intervention due to size of tumor then began immunotherapy with Dr. Zaragoza. He completed 4th treatment on 12/10 and due 12/31 for 5th treatment. Per family recent tumor markers were improving and he was due for repeat CT 12/26 and radiation
evaluation in January. He also developed onset of ascites since mid October with albumin infusions with last several treatments. He was also started on Lasix and Aldactone with increased dose up to Lasix 80mg and Aldactone 200mg and some elevated K
levels. He also recently started Levothyroxine with increasing doses. Last admission noted with ammonia level of 53 and pt was started on Lactulose 20mg TID with improvement.
hx EGD 07/2024 gastritis no varices, colonoscopy 09/2024 no polyps--- per family with Dr. Damon.
-Recent hepatic encephalopathy
-hx GUEVARA cirrhosis
-liver CA with current immunotherapy treatment
-ascites with weekly paracentesis
- HTN
- hypercholesterolemia
- prior ricky
- NIDDM
- ETOH use quit 20 years ago
- 12/15/24-s/p para for 4400 neg SBP and albumin infused
PLAN:
New diagnosis of possible portal vein thrombus on abdominal Doppler ultrasound. Will do MRI of the abdomen to evaluate that further.
MRI abdomen showing possible tumor invasion rather than thrombus
Hematology/oncology recommendations noted, no role for anticoagulation.
Status post paracentesis this morning, 3.2 L of fliud removed and no SBP Received IV albumin
Currently Lasix and Aldactone are on hold for recent increase in creatinine, as per nephrology, will hold off on diuretics for now
No fevers or leukocytosis or symptoms suggesting hepatic encephalopathy at this time.
Continue lactulose 20 g 4 times a day and Xifaxan 550 mg twice a day. Will titrate the dose of lactulose based on the bowel movements.
-Okay for low fat and 2 g sodium diet.
12/21/24 MELD 3.0-20
OP follow up with Dr. Zaragoza and Dr. Damon
Will follow
Subjective
Subjective
Date of Service: December 22, 2024
Patient denies any abdominal pain, reports having bowel movement today. Tolerating 2 g sodium diet
Objective
Data Reviewed
Laboratory Data:
Laboratory Results
12/22/24 06:00
12/22/24 06:00
Laboratory Results
PT 14.6 Sec (11.4-14.6) 12/21/24 05:58
INR 1.11 12/21/24 05:58
Magnesium 2.5 mg/dl (1.6-2.3) H 12/20/24 05:36
Total Bilirubin 2.3 mg/dl (0.2-1.3) H 12/22/24 06:00
AST 243 U/L (17-59) H 12/22/24 06:00
ALT 85 U/L (0-50) H 12/22/24 06:00
Alkaline Phosphatase 495 U/L (38-126) H 12/22/24 06:00
Lipase 737 U/L (23-300) H 12/20/24 05:36
Vital Signs and I&O:
Vital Signs
Temp Pulse Resp BP Pulse Ox
98 F 93 18 106/58 100
12/22/24 16:06 12/22/24 16:06 12/22/24 16:06 12/22/24 16:06 12/22/24 16:06
I&O
12/21/24 12/22/24 12/23/24
06:59 06:59 06:59
Intake Total 900 / 900 240 / 240
Balance 900 / 900 240 / 240
Physical Exam
Physical Exam
GI: Soft, Distended and Non Tender
[2024-12-22 21:12] LABS: Glucose - Point of Care 182 mg/dl (70-99)
[2024-12-22 23:46] VITALS: BP 107/52
[2024-12-23] MEDS: FLEXBUMIN 100 IV (03:57)
[2024-12-23 05:30] LABS: Hematocrit 33.0 % (39.0-52.0); Hemoglobin 11.2 g/dL (13.0-18.0); Mean Corp Hgb Conc. 33.9 g/dL (33.0-37.0); Mean Corpuscular Volume 93.0 fL (80.0-94.0); Nucleated Red Blood Cells % 0 % (-); Platelet Count 46 10^3/uL (130-400); Red Cell Dist. Width 17.1 % (11.5-14.5)
[2024-12-23 05:46] LABS: ALT (SGPT) 70 U/L (0-50); AST (SGOT) 212 U/L (17-59); Albumin 3.1 g/dl (3.5-5.0); Alkaline Phosphatase 394 U/L (38-126); Blood Urea Nitrogen 47 mg/dl (9-20); Calcium 7.8 mg/dl (8.4-10.2); Carbon Dioxide 26 mmol/L (22-30); Chloride 95 mmol/L (98-107); Estimated Creatinine Clearance 76 ml/min; Glucose 136 mg/dl (70-99); Potassium 3.9 mmol/L (3.5-5.1); Sodium 128 mmol/L (135-145); Total Protein 5.7 g/dl (6.3-8.2); eGFR > 60.00
[2024-12-23] MEDS: SYNTHROID 112 MCG PO (06:05)
[2024-12-23 07:37] VITALS: BP 102/54
[2024-12-23 08:03] LABS: Glucose - Point of Care 127 mg/dl (70-99)
[2024-12-23] MEDS: NOVOLOG FLEXPEN-LOW RESISTANCE SC ×2 (08:37→17:32)
[2024-12-23] MEDS: DUPHALAC/CHRONULAC 20 GRAMS PO ×4 (08:38→20:39)
[2024-12-23] MEDS: XIFAXAN 550 MG PO ×2 (08:38→20:39)
--- NOTE | 2024-12-23 10:57 | W.PN.GI.CBS2 ---
Addendum entered and electronically signed by Roge Dial MD 12/23/24 15:25:
I saw and examined the patient.
The PATIENT AMBASSADOR or PA's note was reviewed and I agree with the note.
Comment: Tolerated lunch today. No n/v. Denies abd pain. Answers questions, but lets do most of the talking
ABD soft NT
REC:
Starting low dose diuretics- lasix 20mg, and aldactone 100mg with renal monitoring
Continue lactulose and xifaxan- had difficulty getting OP. I told to use HE as indication for xifaxan and it may get better coverage
No need for anticoagulation for PVT- tumor thrombus
F/U with Hepatology OP- Dr Damon and Aparna
No vomiting. PO as tolerated
Original Note:
Today's Communication / Plan
-
As per plan
Assessment / Plan
-
Pt is a 69yo with hx HCC diagnosed in September 2024, currently on immunotherapy at [facility] who was recently admitted last week with hepatic encephalopathy, treated with lactulose and Xifaxan and discharged home 12/18/2024 returns 12/19/2024 with bilious
vomiting, abdominal ultrasound showing possible thrombus in the portal vein, LFTs elevated similar to discharge, not encephalopathic, no fever. Creatinine noted to be elevated at 1.1 admission and currently at 1.3.
He has history of hypothyroidism, HTN, hypercholesterolemia, prior ricky, NIDDM, ETOH use and quit 20 years ago then about 2020 pt was noted with fatty liver. He began to follow with Dr. Stark as was placed on Usha clinical trial with every 6
month MRI with lab and fibroscan testing. He began in July 2024 with wt loss, abdominal pain with EGD noted gastritis but then in September follow up MRI was noted with liver mass. He was referred to [facility] and was seen by surgical oncology with no
surgical intervention due to size of tumor then began immunotherapy with Dr. Zaragoza. He completed 4th treatment on 12/10 and due 12/31 for 5th treatment. Per family recent tumor markers were improving and he was due for repeat CT 12/26 and radiation
evaluation in January. He also developed onset of ascites since mid October with albumin infusions with last several treatments. He was also started on Lasix and Aldactone with increased dose up to Lasix 80mg and Aldactone 200mg and some elevated K
levels. He also recently started Levothyroxine with increasing doses. Last admission noted with ammonia level of 53 and pt was started on Lactulose 20mg TID with improvement.
hx EGD 07/2024 gastritis no varices, colonoscopy 09/2024 no polyps--- per family with Dr. Damon.
-Recent hepatic encephalopathy
-hx GUEVARA cirrhosis
-liver CA with current immunotherapy treatment
-ascites with weekly paracentesis
- HTN
- hypercholesterolemia
- prior ricky
- NIDDM
- ETOH use quit 20 years ago
- 12/15/24-s/p para for 4400 neg SBP and albumin infused
PLAN:
New diagnosis of possible portal vein thrombus on abdominal Doppler ultrasound. -->MRI abdomen showing possible tumor invasion rather than thrombus
Hematology/oncology recommendations noted, no role for anticoagulation.
Status post paracentesis 12/23/24-> 3.2 L of fliud removed and no SBP-> Received IV albumin
Currently Lasix and Aldactone are on hold for recent increase in creatinine, as per nephrology, will hold off on diuretics for now
-Continue lactulose 20 g 4 times a day and Xifaxan 550 mg twice a day.
-> Will titrate the dose of lactulose based on the bowel movements. RNs without documentation of bowel movements. Will discuss. Patient documenting bowel movement.
- Continue 2 g sodium diet
- Daily weights
12/21/2024 MELD 3.0=20
OP follow up with Dr. Zaragoza and Dr. Damon
Subjective
Subjective
Date of Service: December 23, 2024
Patient feeling good. Had a brown soft bowel movement last evening. Ate breakfast this morning without any difficulty. No abdominal pain. No current complaints. No confusion, no asterixis. Awake alert and oriented x 3
Objective
Data Reviewed
Laboratory Data:
Laboratory Results
12/23/24 04:42
12/23/24 04:42
Laboratory Results
PT 14.6 Sec (11.4-14.6) 12/21/24 05:58
INR 1.11 12/21/24 05:58
Magnesium 2.5 mg/dl (1.6-2.3) H 12/20/24 05:36
Total Bilirubin 2.9 mg/dl (0.2-1.3) H 12/23/24 04:42
AST 212 U/L (17-59) H 12/23/24 04:42
ALT 70 U/L (0-50) H 12/23/24 04:42
Alkaline Phosphatase 394 U/L (38-126) H 12/23/24 04:42
Lipase 737 U/L (23-300) H 12/20/24 05:36
Vital Signs and I&O:
Vital Signs
Temp Pulse Resp BP Pulse Ox
97.8 F 82 16 102/54 99
12/23/24 07:37 12/23/24 07:37 12/23/24 07:37 12/23/24 07:37 12/23/24 07:37
I&O
12/22/24 12/23/24 12/24/24
06:59 06:59 06:59
Intake Total 240 / 240 0 / 0
Balance 240 / 240 0 / 0
Physical Exam
Physical Exam
Cardiology: Normal Sinus Rhythm
Pulmonary: Clear (Anterior)
GI: Soft, Non Distended, Non Tender and Normal Bowel Sounds
Extremities: No Edema
Neuro: Non Focal (Awake alert and oriented x 3, no asterixis)
[2024-12-23 12:09] LABS: Glucose - Point of Care 262 mg/dl (70-99)
--- NOTE | 2024-12-23 12:18 | W.PN.HOSP.TC ---
Today's Communication/Plan
-
Cr improving - start lasix/aldactne with low dose, follow labs in AM
Assessment / Plan
Assessment / Plan
69yo M with PMHx of cholecystectomy, stage 3 HCC, liver cirrhosis, HTN, HLD, hypothyroidism, recent admission for hepatic encephalopathy readmitted after eposode of vomiting found recurrent hepatic encephalopathy and RED. RED resolved after
paracentesis and volume expansion with Albumin. No indication of SBP on labs
A/P:
#Acute hepatic encephalopathy
#RED, ruled out HRS
#Hyponatremia
#Hyperkalemia
#Liver cirrhosis with ascites
follow Cr
avoid diuretics
Albumin for volume expansion -Cr improved, no concern for HRS
s/p paracentesis on 12/22/24 - cell count not concerning for SBP, Cx neg too. Transudate with low protein - hepatic origin
COnt rifaximin and lactulose as per GI
follow and correct electrolytes
#elevated LFT 2/2 cirrhosis
follow LFT
#elevated lipase
MRI showed cystic foci, however no acute inflammation
#1.8 x 0.8 cm nodule along the right diaphragmatic vicki
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
Onc followed - no indication for AC with tumor thrombosis
cont outpatient follow up with established oncologist
#thrombocytopenia
chronic 2/2 cirrhosis
follow CBC
#DM type 2 with neuropathy
Accuchecks
DM diet
Insulin SS
hold Metformin
#Hypothyroidism
#Essential HTN
cont home meds
#Hypocalcemia
replete
#Renal cyst L
no further mgmt
DVT ppx SCDs 2/2 thrombocytopenia
Full code
I have spent at least 51min reviewing chart, test results, communication with consultants, bedside and providing direct patient care
Anticipated Discharge: 24 - 48 hours
Subjective/Interval History
-
Date of Service: December 23, 2024
Objective Data
-
Labs:
Laboratory Results
12/23/24
04:42
WBC 7.2
Hgb 11.2 L
Hct 33.0 L
Plt Count 46 L D
Sodium 128 L
Potassium 3.9
Chloride 95 L
Carbon Dioxide 26
BUN 47 H
Creatinine 0.9
Glucose 136 H
Calcium 7.8 L
Total Bilirubin 2.9 H
AST 212 H
ALT 70 H
Alkaline Phosphatase 394 H
Vital Signs:
Vital Signs
Temp Pulse Resp BP Pulse Ox
97.8 F 82 16 102/54 99
12/23/24 07:37 12/23/24 07:37 12/23/24 07:37 12/23/24 07:37 12/23/24 07:37
I&O
12/22/24 12/23/24 12/24/24
06:59 06:59 06:59
Intake Total 240 / 240 0 / 0
Balance 240 / 240 0 / 0
Review of Systems
-
History Source: Patient
All other systems: Reviewed and negative
Physical Exam
-
General: Comfortable
HEENT: Normocephalic
Cardiac: Regular Rhythm
GI: Soft, Nontender and Distended
Skin: Warm
Neuro: Awake, Alert, Oriented and AO x 3
[2024-12-23] MEDS: CALCIUM GLUCONATE 100 IV (12:40)
[2024-12-23 13:43] VITALS: BP 104/53
[2024-12-23] MEDS: NOVOLOG FLEXPEN-LOW RESISTANCE 3 UNITS SC (13:46)
[2024-12-23] MEDS: LASIX 20 MG PO (14:01)
--- NOTE | 2024-12-23 14:36 | W.PN.NEPH.PH ---
Today's Communication / Plan
-
Okay with Lasix
Holding Aldactone with low blood pressure for now
Assessment/Plan
-
Assessment
Hyponatremia= 129�127
Hyperkalemia
RED after doubling of diuretics as OP= creatinine 1.2
Recurrent ascites
Hepatic encephalopathy
Hepatocellular carcinoma on immunotherapy
Plan
Daily BMP
Portal hypertension on MRI
Status post paracentesis 12/22
Sodium hovering at 128
Continue fluid restriction
Increase protein in diet
Spoke with his at bedside at length about increasing protein in the form of shakes monitoring total fluid intake as well
-
-
Date of Service: December 23, 2024
CC / HPI / ROS
-
Chief Complaint:
RED
History of Present Illness:
RED/Cr resolved
Na remains low but stable
BP stable
K improved with lokelma
Review of Systems:
no CP/SOB
Labs
-
Labs:
WBC 7.2 10^3/uL (4.8-10.8) 12/23/24 04:42
RBC 3.55 10^6/uL (4.70-6.10) L 12/23/24 04:42
Hgb 11.2 g/dL (13.0-18.0) L 12/23/24 04:42
Hct 33.0 % (39.0-52.0) L 12/23/24 04:42
Plt Count 46 10^3/uL (130-400) L D 12/23/24 04:42
Sodium 128 mmol/L (135-145) L 12/23/24 04:42
Potassium 3.9 mmol/L (3.5-5.1) 12/23/24 04:42
Chloride 95 mmol/L (98-107) L 12/23/24 04:42
Carbon Dioxide 26 mmol/L (22-30) 12/23/24 04:42
BUN 47 mg/dl (9-20) H 12/23/24 04:42
Creatinine 0.9 mg/dL (0.7-1.3) 12/23/24 04:42
eGFR > 60.00 12/23/24 04:42
Glucose 136 mg/dl (70-99) H 12/23/24 04:42
Calcium 7.8 mg/dl (8.4-10.2) L 12/23/24 04:42
Albumin 3.1 g/dl (3.5-5.0) L 12/23/24 04:42
Physical Exam
-
Vital Signs:
Vital Signs
Temp Pulse Resp BP Pulse Ox
97.8 F 90 16 104/53 99
12/23/24 07:37 12/23/24 13:43 12/23/24 07:37 12/23/24 14:01 12/23/24 07:37
Cardiovascular:: Regular rate and rhythm
Respiratory:: Bilateral: Coarse
Lung Excursion:: Normal
Abdomen:: Nontender and Soft
Bowel Sounds:: Normal
Extremity Edema:: None: Bilateral:
[2024-12-23 15:09] VITALS: BP 121/90
--- NOTE | 2024-12-23 16:22 | CM ---
Spoke with patient and in room.
Kayley will drive him home .
He follows up with [facility] '
They declined VN .
PLAN Home no needs
[2024-12-23 16:39] LABS: Glucose - Point of Care 147 mg/dl (70-99)
--- NOTE | 2024-12-23 20:46 | PTCARENOTE ---
Per patient CHG bath was done during the AM shift per protocol.
[2024-12-23 21:35] LABS: Glucose - Point of Care 263 mg/dl (70-99)
[2024-12-23 23:23] VITALS: BP 106/65
--- NOTE | 2024-12-24 02:51 | DOWNTIME ---
There was a [employer]ician Downtime on 12/24/2024 from 0100 to 12/24/2024 at 0215. Downtime documentation of patient's care, including medication administrations, has been reconciled in the electronic record per guidelines. Refer to the
patient's paper chart under the miscellaneous tab to see printed paper medication records and downtime forms.
[2024-12-24] MEDS: SYNTHROID 112 MCG PO (05:55)
[2024-12-24 06:13] LABS: Hematocrit 35.8 % (39.0-52.0); Hemoglobin 12.0 g/dL (13.0-18.0); Mean Corp Hgb Conc. 33.5 g/dL (33.0-37.0); Mean Corpuscular Volume 93.2 fL (80.0-94.0); Nucleated Red Blood Cells % 0 % (-); Platelet Count 55 10^3/uL (130-400); Red Cell Dist. Width 17.1 % (11.5-14.5)
[2024-12-24 06:31] LABS: ALT (SGPT) 61 U/L (0-50); AST (SGOT) 160 U/L (17-59); Albumin 2.9 g/dl (3.5-5.0); Alkaline Phosphatase 408 U/L (38-126); Blood Urea Nitrogen 44 mg/dl (9-20); Calcium 8.1 mg/dl (8.4-10.2); Carbon Dioxide 27 mmol/L (22-30); Chloride 95 mmol/L (98-107); Estimated Creatinine Clearance 86 ml/min; Glucose 133 mg/dl (70-99); Magnesium 2.5 mg/dl (1.6-2.3); Potassium 3.7 mmol/L (3.5-5.1); Sodium 127 mmol/L (135-145); Total Protein 5.7 g/dl (6.3-8.2); eGFR > 60.00
[2024-12-24 07:05] VITALS: BP 90/44
[2024-12-24 08:13] LABS: Glucose - Point of Care 132 mg/dl (70-99)
[2024-12-24] MEDS: NOVOLOG FLEXPEN-LOW RESISTANCE SC (08:31)
[2024-12-24] MEDS: DUPHALAC/CHRONULAC 20 GRAMS PO ×4 (08:53→21:33)
[2024-12-24] MEDS: LASIX 20 MG PO ×2 (08:53→10:16)
[2024-12-24] MEDS: XIFAXAN 550 MG PO ×2 (08:54→21:33)
--- NOTE | 2024-12-24 10:03 | W.PN.GI.CBS2 ---
Addendum entered and electronically signed by Roge Dial MD 12/24/24 13:29:
I saw and examined the patient.
The VP OF TECHNOLOGY or PA's note was reviewed and I agree with the note.
Comment: Denies c/o. Tolerating diet.
ABD soft mild distention
REC:
Diuretics managed by Renal
Continue lactulose/xifaxan. I added HE as indication on her rx for insurance coverage hopefully
Periodic tap prn for ascites
F/U wtih Dr Zaragoza at [facility] after d/c
Will sign off. Please call back if needed.
Original Note:
Today's Communication / Plan
-
pt feeling better no abdominal pain or vomiting, currently remains oriented without asterixis
hold on anticoagulation per heme with --concern for tumor related per MRI
diuretics per renal currently on Lasix 40mg and Aldactone on Hold -- close watch on electrolytes with low Na and recent RED
with recent HE continue lactulose 20mg QID and Xifaxan BID
- Continue 2 g sodium diet
- Daily weights
12/21/2024 MELD 3.0=20, repeat
OP follow up with Dr. Zaragoza and Dr. Damon
Assessment / Plan
-
Pt is a 69yo with hx HCC diagnosed in September 2024, currently on immunotherapy at [facility] who was recently admitted last week with hepatic encephalopathy, treated with lactulose and Xifaxan and discharged home 12/18/2024 returns 12/19/2024 with bilious
vomiting, abdominal ultrasound showing possible thrombus in the portal vein, LFTs elevated similar to discharge, not encephalopathic, no fever. Creatinine noted to be elevated at 1.1 admission and currently at 1.3.
He has history of hypothyroidism, HTN, hypercholesterolemia, prior ricky, NIDDM, ETOH use and quit 20 years ago then about 2020 pt was noted with fatty liver. He began to follow with Dr. Stark as was placed on Usha clinical trial with every 6
month MRI with lab and fibroscan testing. He began in July 2024 with wt loss, abdominal pain with EGD noted gastritis but then in September follow up MRI was noted with liver mass. He was referred to [facility] and was seen by surgical oncology with no
surgical intervention due to size of tumor then began immunotherapy with Dr. Zaragoza. He completed 4th treatment on 12/10 and due 12/31 for 5th treatment. Per family recent tumor markers were improving and he was due for repeat CT 12/26 and radiation
evaluation in January. He also developed onset of ascites since mid October with albumin infusions with last several treatments. He was also started on Lasix and Aldactone with increased dose up to Lasix 80mg and Aldactone 200mg and some elevated K
levels. He also recently started Levothyroxine with increasing doses. Last admission noted with ammonia level of 53 and pt was started on Lactulose 20mg TID with improvement.
hx EGD 07/2024 gastritis no varices, colonoscopy 09/2024 no polyps--- per family with Dr. Damon.
para 12/22- 3.2 liters- neg SBP s/p albumin
-abdominal pain on admission -- imaging concern for portal vein thrombus >MRI abdomen showing possible tumor invasion rather than thrombus- hold AC per hematology
-Recent hepatic encephalopathy
-hx GUEVARA cirrhosis was on prior Rezdiffra trial
-liver CA with current immunotherapy treatment
-ascites with weekly paracentesis and continued diuretic adjustment with renal service
-hyponatremia
-RED on admission
- HTN
- hypercholesterolemia
- prior ricky
- NIDDM
- ETOH use quit 20 years ago
- 12/15/24-s/p para for 4400 neg SBP and albumin infused
PLAN:
pt feeling better no abdominal pain or vomiting, currently remains oriented without asterixis
hold on anticoagulation per heme with --concern for tumor related per MRI
diuretics per renal currently on Lasix 40mg and Aldactone on Hold -- close watch on electrolytes with low Na and recent RED
with recent HE continue lactulose 20mg QID and Xifaxan BID
- Continue 2 g sodium diet
- Daily weights
12/21/2024 MELD 3.0=20, repeat
OP follow up with Dr. Zaragoza and Dr. Damon
Subjective
Subjective
Date of Service: December 24, 2024
12/24 brown soft stool, on 2 gram Na diet
Objective
Data Reviewed
Laboratory Data:
Laboratory Results
12/24/24 05:45
12/24/24 05:45
Laboratory Results
PT 14.6 Sec (11.4-14.6) 12/21/24 05:58
INR 1.11 12/21/24 05:58
Magnesium 2.5 mg/dl (1.6-2.3) H 12/24/24 05:45
Total Bilirubin 3.0 mg/dl (0.2-1.3) H 12/24/24 05:45
AST 160 U/L (17-59) H 12/24/24 05:45
ALT 61 U/L (0-50) H 12/24/24 05:45
Alkaline Phosphatase 408 U/L (38-126) H 12/24/24 05:45
Lipase 737 U/L (23-300) H 12/20/24 05:36
Vital Signs and I&O:
Vital Signs
Temp Pulse Resp BP Pulse Ox
98.7 F 91 16 90/44 98
12/24/24 07:05 12/24/24 07:05 12/24/24 07:05 12/24/24 07:05 12/24/24 07:05
I&O
12/23/24 12/24/24 12/25/24
06:59 06:59 06:59
Intake Total 0 / 0 720 / 720
Output Total 400 / 400
Balance 0 / 0 320 / 320
Physical Exam
Physical Exam
HEENT: Other (mild jaundice )
Cardiology: Normal Sinus Rhythm
Pulmonary: Clear
GI: Soft, Distended (mild ) and Non Tender
Neuro: Non Focal and Other (no astexis )
[2024-12-24 11:14] VITALS: BP 106/63
--- NOTE | 2024-12-24 11:18 | CM ---
Patient seen at bedside on . Patient resting, per chart review, patient had declined VN and plan is to go home with . CM will continue to follow for discharge planning needs.
Plan; home with no need; watch for any VN needs.
--- NOTE | 2024-12-24 11:21 | W.PN.HOSP.TC ---
Today's Communication/Plan
-
feeling dayami, Cr kept improving. Increase Lasix
Aldactone on hold
further mgmt of hyponatremia as per [employer]
Assessment / Plan
Assessment / Plan
69yo M with PMHx of cholecystectomy, stage 3 HCC, liver cirrhosis, HTN, HLD, hypothyroidism, recent admission for hepatic encephalopathy readmitted after eposode of vomiting found recurrent hepatic encephalopathy and RED. RED resolved after
paracentesis and volume expansion with Albumin. No indication of SBP on labs
A/P:
#Acute hepatic encephalopathy
#RED, ruled out HRS
#Hyponatremia
#Hyperkalemia
#Liver cirrhosis with ascites
follow Cr
avoid diuretics
Albumin for volume expansion -Cr improved, no concern for HRS
s/p paracentesis on 12/22/24 - cell count not concerning for SBP, Cx neg too. Transudate with low protein - hepatic origin
COnt rifaximin and lactulose as per GI
follow and correct electrolytes
#elevated LFT 2/2 cirrhosis
follow LFT
#elevated lipase
MRI showed cystic foci, however no acute inflammation
#1.8 x 0.8 cm nodule along the right diaphragmatic vicki
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
Onc followed - no indication for AC with tumor thrombosis
cont outpatient follow up with established oncologist
#thrombocytopenia
chronic 2/2 cirrhosis
follow CBC
#DM type 2 with neuropathy
Accuchecks
DM diet
Insulin SS
hold Metformin
#Hypothyroidism
#Essential HTN
cont home meds
#Hypocalcemia
replete
#Renal cyst L
no further mgmt
DVT ppx SCDs 2/2 thrombocytopenia
Full code
I have spent at least 51min reviewing chart, test results, communication with consultants, bedside and providing direct patient care
Anticipated Discharge: 24 - 48 hours
Subjective/Interval History
-
Date of Service: December 24, 2024
Objective Data
-
Labs:
Laboratory Results
12/24/24
05:45
WBC 8.3
Hgb 12.0 L
Hct 35.8 L
Plt Count 55 L
Sodium 127 L
Potassium 3.7
Chloride 95 L
Carbon Dioxide 27
BUN 44 H
Creatinine 0.8
Glucose 133 H
Calcium 8.1 L
Total Bilirubin 3.0 H
AST 160 H
ALT 61 H
Alkaline Phosphatase 408 H
Vital Signs:
Vital Signs
Temp Pulse Resp BP Pulse Ox
98.7 F 91 16 90/44 98
12/24/24 07:05 12/24/24 07:05 12/24/24 07:05 12/24/24 07:05 12/24/24 10:50
I&O
12/23/24 12/24/24 12/25/24
06:59 06:59 06:59
Intake Total 0 / 0 720 / 720
Output Total 400 / 400
Balance 0 / 0 320 / 320
Review of Systems
-
History Source: Patient
All other systems: Reviewed and negative
Physical Exam
-
General: No Apparent Distress
HEENT: Normocephalic
Respiratory: Clear to Auscultation
Cardiac: Regular Rhythm
Neuro: Awake, Alert, Oriented and AO x 3
Psych: Calm
[2024-12-24 12:41] LABS: Glucose - Point of Care 301 mg/dl (70-99)
[2024-12-24] MEDS: NOVOLOG FLEXPEN-LOW RESISTANCE 4 UNITS SC (13:07)
--- NOTE | 2024-12-24 15:02 | W.PN.NEPH.PH ---
Today's Communication / Plan
-
check urine
Assessment/Plan
-
Assessment
Hyponatremia= 129�127
Hyperkalemia
RED after doubling of diuretics as OP= creatinine 1.2
Recurrent ascites
Hepatic encephalopathy
Hepatocellular carcinoma on immunotherapy
Plan
check urine studies
Daily BMP
Portal hypertension on MRI
Status post paracentesis 12/22
Continue fluid restriction
Increase protein in diet
continue lasix, no aldactone yet
-
-
Date of Service: December 24, 2024
CC / HPI / ROS
-
Chief Complaint:
RED
History of Present Illness:
RED/Cr resolved 0.8
Na remains low but stable 127
BP stable
K improved 3.7
Review of Systems:
no CP/SOB
Labs
-
Labs:
WBC 8.3 10^3/uL (4.8-10.8) 12/24/24 05:45
RBC 3.84 10^6/uL (4.70-6.10) L 12/24/24 05:45
Hgb 12.0 g/dL (13.0-18.0) L 12/24/24 05:45
Hct 35.8 % (39.0-52.0) L 12/24/24 05:45
Plt Count 55 10^3/uL (130-400) L 12/24/24 05:45
Sodium 127 mmol/L (135-145) L 12/24/24 05:45
Potassium 3.7 mmol/L (3.5-5.1) 12/24/24 05:45
Chloride 95 mmol/L (98-107) L 12/24/24 05:45
Carbon Dioxide 27 mmol/L (22-30) 12/24/24 05:45
BUN 44 mg/dl (9-20) H 12/24/24 05:45
Creatinine 0.8 mg/dL (0.7-1.3) 12/24/24 05:45
eGFR > 60.00 12/24/24 05:45
Glucose 133 mg/dl (70-99) H 12/24/24 05:45
Calcium 8.1 mg/dl (8.4-10.2) L 12/24/24 05:45
Albumin 2.9 g/dl (3.5-5.0) L 12/24/24 05:45
Physical Exam
-
Vital Signs:
Vital Signs
Temp Pulse Resp BP Pulse Ox
98.8 F 67 16 106/63 99
12/24/24 11:14 12/24/24 11:14 12/24/24 11:14 12/24/24 11:14 12/24/24 11:14
Cardiovascular:: Regular rate and rhythm
Respiratory:: Bilateral: Coarse
Lung Excursion:: Normal
Abdomen:: Nontender and Soft
Bowel Sounds:: Normal
Extremity Edema:: None: Bilateral:
[2024-12-24 15:12] VITALS: BP 107/63
[2024-12-24 16:35] LABS: Glucose - Point of Care 184 mg/dl (70-99)
[2024-12-24] MEDS: NOVOLOG FLEXPEN-LOW RESISTANCE 1 UNITS SC (17:21)
[2024-12-24 21:12] LABS: Glucose - Point of Care 277 mg/dl (70-99)
[2024-12-24 23:39] VITALS: BP 105/63
[2024-12-25 05:45] LABS: INR 1.12; PT 14.9 Sec (11.4-14.6)
[2024-12-25] MEDS: SYNTHROID 112 MCG PO (05:54)
[2024-12-25 06:00] VITALS: BMI 20.3
[2024-12-25 06:03] LABS: Blood Urea Nitrogen 45 mg/dl (9-20); Calcium 8.1 mg/dl (8.4-10.2); Carbon Dioxide 25 mmol/L (22-30); Chloride 94 mmol/L (98-107); Estimated Creatinine Clearance 83 ml/min; Glucose 151 mg/dl (70-99); Potassium 3.7 mmol/L (3.5-5.1); Sodium 126 mmol/L (135-145); eGFR > 60.00
[2024-12-25 07:05] VITALS: BP 108/62
[2024-12-25 07:21] LABS: Glucose - Point of Care 180 mg/dl (70-99)
[2024-12-25] MEDS: XIFAXAN 550 MG PO ×2 (07:52→21:01)
[2024-12-25] MEDS: DUPHALAC/CHRONULAC 20 GRAMS PO ×4 (07:52→21:01)
[2024-12-25] MEDS: LASIX 40 MG PO (07:52)
[2024-12-25] MEDS: NOVOLOG FLEXPEN-LOW RESISTANCE 1 UNITS SC (08:59)
--- NOTE | 2024-12-25 09:14 | W.PN.HOSP.TC ---
Today's Communication/Plan
-
worsening hyponatremia - remove salt restriction in diet, further mgmt by nephro
Assessment / Plan
Assessment / Plan
69yo M with PMHx of cholecystectomy, stage 3 HCC, liver cirrhosis, HTN, HLD, hypothyroidism, recent admission for hepatic encephalopathy readmitted after eposode of vomiting found recurrent hepatic encephalopathy and RED. RED resolved after
paracentesis and volume expansion with Albumin. No indication of SBP on labs
A/P:
#Acute hepatic encephalopathy
#RED, ruled out HRS
#Hyponatremia
#Hyperkalemia
#Liver cirrhosis with ascites
follow Cr
avoid diuretics
Albumin for volume expansion -Cr improved, no concern for HRS
s/p paracentesis on 12/22/24 - cell count not concerning for SBP, Cx neg too. Transudate with low protein - hepatic origin
COnt rifaximin and lactulose as per GI
follow and correct electrolytes
#elevated LFT 2/2 cirrhosis
follow LFT
#elevated lipase
MRI showed cystic foci, however no acute inflammation
#1.8 x 0.8 cm nodule along the right diaphragmatic vicki
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
Onc followed - no indication for AC with tumor thrombosis
cont outpatient follow up with established oncologist
#thrombocytopenia
chronic 2/2 cirrhosis
follow CBC
#DM type 2 with neuropathy
Accuchecks
DM diet
Insulin SS
hold Metformin
#Hypothyroidism
#Essential HTN
cont home meds
#Hypocalcemia
replete
#Renal cyst L
no further mgmt
DVT ppx SCDs 2/2 thrombocytopenia
Full code
I have spent at least 51min reviewing chart, test results, communication with consultants, bedside and providing direct patient care
Anticipated Discharge: 24 - 48 hours
Subjective/Interval History
-
Date of Service: December 25, 2024
Objective Data
-
Labs:
Laboratory Results
12/25/24
05:11
PT 14.9 H
INR 1.12
Sodium 126 L
Potassium 3.7
Chloride 94 L
Carbon Dioxide 25
BUN 45 H
Creatinine 0.8
Glucose 151 H
Calcium 8.1 L
Vital Signs:
Vital Signs
Temp Pulse Resp BP Pulse Ox
98.5 F 86 18 108/62 98
12/25/24 07:05 12/25/24 07:05 12/25/24 07:05 12/25/24 07:05 12/25/24 07:05
I&O
12/24/24 12/25/24 12/26/24
06:59 06:59 06:59
Intake Total 720 / 720 720 / 720
Output Total 400 / 400 400 / 400
Balance 320 / 320 320 / 320
Review of Systems
-
History Source: Patient
All other systems: Reviewed and negative
Physical Exam
-
General: No Apparent Distress
HEENT: Normocephalic
Cardiac: Regular Rhythm
GI: Soft, Nontender and Distended
Musculoskeletal: No Clubbing, No Cyanosis and No Edema
Neuro: Awake, Alert, Oriented and AO x 3
Psych: Calm
[2024-12-25] MEDS: SAMSCA 15 MG PO (09:56)
--- NOTE | 2024-12-25 10:11 | W.PN.NEPH.PH ---
Today's Communication / Plan
-
samsca
Assessment/Plan
-
Assessment
Hyponatremia= 129�127
Hyperkalemia
RED after doubling of diuretics as OP= creatinine 1.2
Recurrent ascites
Hepatic encephalopathy
Hepatocellular carcinoma on immunotherapy
Plan
low urine sodium from liver disease/pathophysiology
Daily BMP
Status post paracentesis 12/22
Continue fluid restriction
continue lasix, no aldactone yet
samsca today
-
-
Date of Service: December 25, 2024
CC / HPI / ROS
-
Chief Complaint:
RED
History of Present Illness:
RED/Cr resolved 0.8
Na lower at 126
BP stable
K improved 3.7
Review of Systems:
no CP/SOB
Labs
-
Labs:
WBC 8.3 10^3/uL (4.8-10.8) 12/24/24 05:45
RBC 3.84 10^6/uL (4.70-6.10) L 12/24/24 05:45
Hgb 12.0 g/dL (13.0-18.0) L 12/24/24 05:45
Hct 35.8 % (39.0-52.0) L 12/24/24 05:45
Plt Count 55 10^3/uL (130-400) L 12/24/24 05:45
Sodium 126 mmol/L (135-145) L 12/25/24 05:11
Potassium 3.7 mmol/L (3.5-5.1) 12/25/24 05:11
Chloride 94 mmol/L (98-107) L 12/25/24 05:11
Carbon Dioxide 25 mmol/L (22-30) 12/25/24 05:11
BUN 45 mg/dl (9-20) H 12/25/24 05:11
Creatinine 0.8 mg/dL (0.7-1.3) 12/25/24 05:11
eGFR > 60.00 12/25/24 05:11
Glucose 151 mg/dl (70-99) H 12/25/24 05:11
Calcium 8.1 mg/dl (8.4-10.2) L 12/25/24 05:11
Albumin 2.9 g/dl (3.5-5.0) L 12/24/24 05:45
Physical Exam
-
Vital Signs:
Vital Signs
Temp Pulse Resp BP Pulse Ox
98.5 F 86 18 108/62 98
12/25/24 07:05 12/25/24 07:05 12/25/24 07:05 12/25/24 07:05 12/25/24 07:05
Cardiovascular:: Regular rate and rhythm
Respiratory:: Bilateral: CTA
Lung Excursion:: Normal
Abdomen:: Nontender and Soft
Bowel Sounds:: Normal
Extremity Edema:: None: Bilateral:
[2024-12-25 11:46] LABS: Glucose - Point of Care 224 mg/dl (70-99)
[2024-12-25] MEDS: NOVOLOG FLEXPEN-LOW RESISTANCE 2 UNITS SC ×2 (13:03→17:54)
[2024-12-25 15:20] VITALS: BP 123/65
--- NOTE | 2024-12-25 15:58 | CM ---
Patient seen with at bedside, therapy to assess. Patient has 16 steps to enter home per . Physician recommending rehab, patient would need follow up with appointments per . CM will continue to follow for discharge planning needs.
Plan; home with VN vs SNF
[2024-12-25 16:32] VITALS: BP 114/68; PULSE 93
[2024-12-25 16:52] LABS: Glucose - Point of Care 223 mg/dl (70-99)
--- NOTE | 2024-12-25 17:16 | PTCARENOTE ---
Noticed pt only had output of 100ml. Bladder scan pt directly after urination and got 489. Pt felt no urge to continue urinating. Pt denies pressure near his bladder or pain with palpation. Straight cath for 300ml darin urine. Pt has ascites so
possible that ascites read on bladder scan. Pt tolerated procedure well. Educated pt about bladder scan/straight cath protocol. Pt states understanding. Pt has no complaints at this time, resting comfortably in bed, call godinez within reach.
[2024-12-25 21:06] LABS: Glucose - Point of Care 217 mg/dl (70-99)
[2024-12-25 23:11] VITALS: BP 112/60
[2024-12-26 04:51] LABS: Blood Urea Nitrogen 46 mg/dl (9-20); Calcium 7.7 mg/dl (8.4-10.2); Carbon Dioxide 25 mmol/L (22-30); Chloride 95 mmol/L (98-107); Estimated Creatinine Clearance 74 ml/min; Glucose 156 mg/dl (70-99); Potassium 3.8 mmol/L (3.5-5.1); Sodium 126 mmol/L (135-145); eGFR > 60.00
[2024-12-26] MEDS: SYNTHROID 112 MCG PO (05:02)
[2024-12-26 06:00] VITALS: BMI 20.1
[2024-12-26 07:03] LABS: Glucose - Point of Care 135 mg/dl (70-99)
[2024-12-26 07:17] VITALS: BP 106/64
[2024-12-26] MEDS: XIFAXAN 550 MG PO ×2 (07:50→22:11)
[2024-12-26] MEDS: NOVOLOG FLEXPEN-LOW RESISTANCE SC (07:50)
[2024-12-26] MEDS: DUPHALAC/CHRONULAC 20 GRAMS PO ×4 (07:50→22:11)
[2024-12-26] MEDS: LASIX 40 MG PO (07:50)
[2024-12-26 09:30] LABS: Magnesium 2.5 mg/dl (1.6-2.3)
[2024-12-26] MEDS: CALCIUM GLUCONATE 100 IV (09:35)
--- NOTE | 2024-12-26 10:56 | W.PN.HOSP.TC ---
Today's Communication/Plan
-
fluid restriction
further mgmt per Nephro
Assessment / Plan
Assessment / Plan
69yo M with PMHx of cholecystectomy, stage 3 HCC, liver cirrhosis, HTN, HLD, hypothyroidism, recent admission for hepatic encephalopathy readmitted after eposode of vomiting found recurrent hepatic encephalopathy and RED. RED resolved after
paracentesis and volume expansion with Albumin. No indication of SBP on labs
A/P:
#Acute hepatic encephalopathy
#RED, ruled out HRS
#Hyponatremia
#Hyperkalemia
#Liver cirrhosis with ascites
follow Cr
avoid diuretics
Albumin for volume expansion -Cr improved, no concern for HRS
s/p paracentesis on 12/22/24 - cell count not concerning for SBP, Cx neg too. Transudate with low protein - hepatic origin
COnt rifaximin and lactulose as per GI
follow and correct electrolytes
S/P Samca as per trip follower on 12/26/24
Fluid restriction
Nephro mgmt
#elevated LFT 2/2 cirrhosis
follow LFT
#elevated lipase
MRI showed cystic foci, however no acute inflammation
#1.8 x 0.8 cm nodule along the right diaphragmatic vicki
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
Onc followed - no indication for AC with tumor thrombosis
cont outpatient follow up with established oncologist
#thrombocytopenia
chronic 2/2 cirrhosis
follow CBC
#DM type 2 with neuropathy
Accuchecks
DM diet
Insulin SS
hold Metformin
#Hypothyroidism
#Essential HTN
cont home meds
#Hypocalcemia
replete
#frequent PVCs
asymptomatic
follow and correct electrolytes
#Renal cyst L
no further mgmt
DVT ppx SCDs 2/2 thrombocytopenia
Full code
I have spent at least 53min reviewing chart, test results, communication with consultants, bedside and providing direct patient care
Anticipated Discharge: 24 - 48 hours
Subjective/Interval History
-
Date of Service: December 26, 2024
Objective Data
-
Labs:
Laboratory Results
12/26/24
03:53
Sodium 126 L
Potassium 3.8
Chloride 95 L
Carbon Dioxide 25
BUN 46 H
Creatinine 0.9
Glucose 156 H
Calcium 7.7 L
Vital Signs:
Vital Signs
Temp Pulse Resp BP Pulse Ox
97.6 F 85 16 106/64 100
12/26/24 07:17 12/26/24 07:17 12/26/24 07:17 12/26/24 07:17 12/26/24 07:17
I&O
12/25/24 12/26/24 12/27/24
06:59 06:59 06:59
Intake Total 720 / 720 1240 / 1240
Output Total 400 / 400 1050 / 1050
Balance 320 / 320 190 / 190
Physical Exam
-
General: No Apparent Distress
HEENT: Normocephalic
Respiratory: Clear to Auscultation
GI: Soft, Nontender and Distended
Musculoskeletal: No Clubbing, No Cyanosis and No Edema
Neuro: Awake, Alert, Oriented and AO x 3
Psych: Calm
[2024-12-26 11:35] VITALS: BP 122/75; PULSE 97; O2SAT 99
[2024-12-26 11:54] LABS: Glucose - Point of Care 191 mg/dl (70-99)
--- NOTE | 2024-12-26 11:54 | CM ---
PT indicated VN .
Spoke with and they declined VN at home .
He follow up with Oniel Tilley.
will drive him home at discharge.
PLAN Home no needs
[2024-12-26 12:39] VITALS: BP 127/70; PULSE 108
[2024-12-26] MEDS: NOVOLOG FLEXPEN-LOW RESISTANCE 300 UNITS SC (12:42)
--- NOTE | 2024-12-26 13:22 | W.PN.NEPH.PH ---
Today's Communication / Plan
-
Samsca 30 today
We could recheck the sodium in the morning and hold discharge 1 more day
Assessment/Plan
-
Assessment
Hyponatremia= 129�127
Hyperkalemia
RED after doubling of diuretics as OP= creatinine 1.2
Recurrent ascites
Hepatic encephalopathy
Hepatocellular carcinoma on immunotherapy
Plan
low urine sodium from liver disease/pathophysiology
Daily BMP
Status post paracentesis 12/22
Continue fluid restriction
continue lasix, no aldactone yet
Sodium 126
Not much response to Samsca
He is asymptomatic
I will give another dose of Samsca 30 today
-
-
Date of Service: December 26, 2024
CC / HPI / ROS
-
Chief Complaint:
RED
History of Present Illness:
RED/Cr resolved 0.8
Na lower at 126
BP stable
K improved 3.7
Review of Systems:
no CP/SOB
Labs
-
Labs:
WBC 8.3 10^3/uL (4.8-10.8) 12/24/24 05:45
RBC 3.84 10^6/uL (4.70-6.10) L 12/24/24 05:45
Hgb 12.0 g/dL (13.0-18.0) L 12/24/24 05:45
Hct 35.8 % (39.0-52.0) L 12/24/24 05:45
Plt Count 55 10^3/uL (130-400) L 12/24/24 05:45
Sodium 126 mmol/L (135-145) L 12/26/24 03:53
Potassium 3.8 mmol/L (3.5-5.1) 12/26/24 03:53
Chloride 95 mmol/L (98-107) L 12/26/24 03:53
Carbon Dioxide 25 mmol/L (22-30) 12/26/24 03:53
BUN 46 mg/dl (9-20) H 12/26/24 03:53
Creatinine 0.9 mg/dL (0.7-1.3) 12/26/24 03:53
eGFR > 60.00 12/26/24 03:53
Glucose 156 mg/dl (70-99) H 12/26/24 03:53
Calcium 7.7 mg/dl (8.4-10.2) L 12/26/24 03:53
Albumin 2.9 g/dl (3.5-5.0) L 12/24/24 05:45
Physical Exam
-
Vital Signs:
Vital Signs
Temp Pulse Resp BP Pulse Ox
97.6 F 85 16 106/64 100
12/26/24 07:17 12/26/24 07:17 12/26/24 07:17 12/26/24 07:17 12/26/24 07:17
Cardiovascular:: Regular rate and rhythm
Respiratory:: Bilateral: CTA
Lung Excursion:: Normal
Abdomen:: Nontender and Soft
Bowel Sounds:: Normal
Extremity Edema:: None: Bilateral:
[2024-12-26] MEDS: SAMSCA 30 MG PO (13:59)
[2024-12-26 15:38] VITALS: BP 115/58
[2024-12-26 16:31] LABS: Glucose - Point of Care 250 mg/dl (70-99)
[2024-12-26] MEDS: NOVOLOG FLEXPEN-LOW RESISTANCE 3 UNITS SC (17:43)
[2024-12-26 21:14] LABS: Glucose - Point of Care 216 mg/dl (70-99)
[2024-12-26 23:00] VITALS: BP 125/71
[2024-12-27] MEDS: SYNTHROID 112 MCG PO (04:27)
[2024-12-27 07:00] VITALS: BP 98/59
[2024-12-27 07:58] LABS: Glucose - Point of Care 136 mg/dl (70-99)
[2024-12-27] MEDS: NOVOLOG FLEXPEN-LOW RESISTANCE SC (08:07)
[2024-12-27] MEDS: DUPHALAC/CHRONULAC 20 GRAMS PO ×4 (08:44→22:04)
[2024-12-27] MEDS: XIFAXAN 550 MG PO ×2 (08:44→20:31)
[2024-12-27 09:41] LABS: Hematocrit 37.9 % (39.0-52.0); Hemoglobin 13.4 g/dL (13.0-18.0); Mean Corp Hgb Conc. 35.4 g/dL (33.0-37.0); Mean Corpuscular Volume 91.1 fL (80.0-94.0); Nucleated Red Blood Cells % 0 % (-); Platelet Count 76 10^3/uL (130-400); Red Cell Dist. Width 17.4 % (11.5-14.5)
[2024-12-27 10:09] LABS: ALT (SGPT) 59 U/L (0-50); AST (SGOT) 155 U/L (17-59); Albumin 2.9 g/dl (3.5-5.0); Alkaline Phosphatase 519 U/L (38-126); Blood Urea Nitrogen 51 mg/dl (9-20); Calcium 8.4 mg/dl (8.4-10.2); Carbon Dioxide 20 mmol/L (22-30); Chloride 97 mmol/L (98-107); Estimated Creatinine Clearance 66 ml/min; Glucose 145 mg/dl (70-99); Potassium 4.3 mmol/L (3.5-5.1); Sodium 127 mmol/L (135-145); Total Protein 6.1 g/dl (6.3-8.2); eGFR > 60.00
--- NOTE | 2024-12-27 10:56 | W.PN.HOSP.TC ---
Today's Communication/Plan
-
cont FR
Hold Lasix today
follow labs in AM
Might need repeated paracenthesis on 12/28/24
Assessment / Plan
Assessment / Plan
69yo M with PMHx of cholecystectomy, stage 3 HCC, liver cirrhosis, HTN, HLD, hypothyroidism, recent admission for hepatic encephalopathy readmitted after eposode of vomiting found recurrent hepatic encephalopathy and RED. RED resolved after
paracentesis and volume expansion with Albumin. No indication of SBP on labs
A/P:
#Acute hepatic encephalopathy
#RED, ruled out HRS
#Hyponatremia
#Hyperkalemia
#Liver cirrhosis with ascites
follow Cr
avoid diuretics
Albumin for volume expansion -Cr improved, no concern for HRS
s/p paracentesis on 12/22/24 - cell count not concerning for SBP, Cx neg too. Transudate with low protein - hepatic origin
COnt rifaximin and lactulose as per GI
follow and correct electrolytes
S/P Samca as per tub mender on 12/26/24
Fluid restriction
Nephro mgmt
#elevated LFT 2/2 cirrhosis
follow LFT
#elevated lipase
MRI showed cystic foci, however no acute inflammation
#1.8 x 0.8 cm nodule along the right diaphragmatic vicki
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
Onc followed - no indication for AC with tumor thrombosis
cont outpatient follow up with established oncologist
#thrombocytopenia
chronic 2/2 cirrhosis
follow CBC
#DM type 2 with neuropathy
Accuchecks
DM diet
Insulin SS
hold Metformin
#Hypothyroidism
#Essential HTN
cont home meds
#Hypocalcemia
replete
#frequent PVCs
asymptomatic
follow and correct electrolytes
#Renal cyst L
no further mgmt
DVT ppx SCDs 2/2 thrombocytopenia
Full code
I have spent at least 53min reviewing chart, test results, communication with consultants, bedside and providing direct patient care
Anticipated Discharge: 24 - 48 hours
Subjective/Interval History
-
Date of Service: December 27, 2024
Objective Data
-
Labs:
Laboratory Results
12/27/24
09:03
WBC 8.5
Hgb 13.4
Hct 37.9 L
Plt Count 76 L D
Sodium 127 L
Potassium 4.3
Chloride 97 L
Carbon Dioxide 20 L
BUN 51 H
Creatinine 1.0
Glucose 145 H
Calcium 8.4
Total Bilirubin 3.3 H
AST 155 H
ALT 59 H
Alkaline Phosphatase 519 H
Vital Signs:
Vital Signs
Temp Pulse Resp BP Pulse Ox
97.7 F 86 16 98/59 100
12/27/24 07:00 12/27/24 07:00 12/27/24 07:00 12/27/24 07:00 12/27/24 09:41
I&O
12/26/24 12/27/24 12/28/24
06:59 06:59 06:59
Intake Total 1240 / 1240 660 / 660
Output Total 1050 / 1050 500 / 500
Balance 190 / 190 160 / 160
Review of Systems
-
History Source: Patient
All other systems: Reviewed and negative
Physical Exam
-
General: No Apparent Distress
GI: Soft, Nontender and Distended
Neuro: Awake, Alert, Oriented and AO x 3
Psych: Calm
--- NOTE | 2024-12-27 10:56 | CM ---
CM reviewed chart, patient seen bedside, reports no needs at this time.
Patient reports he is not being d.c today
Patient denies VN needs upon d/c, confirms transport home when stable.
IMM verbally reviewed, provided with copy, placed in chart.
CM will continue to follow for all d/c planning needs.
Plan; home no needs.
[2024-12-27] MEDS: LASIX PO (11:12)
[2024-12-27 12:22] LABS: Glucose - Point of Care 286 mg/dl (70-99)
[2024-12-27] MEDS: NOVOLOG FLEXPEN-LOW RESISTANCE 3 UNITS SC (13:03)
[2024-12-27 15:00] VITALS: BP 122/70
--- NOTE | 2024-12-27 15:47 | W.PN.NEPH.PH ---
Today's Communication / Plan
-
Continue fluid restriction
Assessment/Plan
-
Assessment
Hyponatremia= 129�127
Hyperkalemia
RED after doubling of diuretics as OP= creatinine 1.2
Recurrent ascites
Hepatic encephalopathy
Hepatocellular carcinoma on immunotherapy
Plan
low urine sodium from liver disease/pathophysiology
Daily BMP
Status post paracentesis 12/22
Continue fluid restriction
continue lasix, no aldactone yet
Very little response to high dose of Samsca
Unfortunately without hypertonic saline it is very difficult to improve his sodium
He is otherwise asymptomatic
Continue to trend
Discussed with his at bedside
-
-
Date of Service: December 27, 2024
CC / HPI / ROS
-
Chief Complaint:
RED
History of Present Illness:
RED/Cr resolved 0.8
Na lower at 126
BP stable
K improved 3.7
Review of Systems:
no CP/SOB
Labs
-
Labs:
WBC 8.5 10^3/uL (4.8-10.8) 12/27/24 09:03
RBC 4.16 10^6/uL (4.70-6.10) L 12/27/24 09:03
Hgb 13.4 g/dL (13.0-18.0) 12/27/24 09:03
Hct 37.9 % (39.0-52.0) L 12/27/24 09:03
Plt Count 76 10^3/uL (130-400) L D 12/27/24 09:03
Sodium 127 mmol/L (135-145) L 12/27/24 09:03
Potassium 4.3 mmol/L (3.5-5.1) 12/27/24 09:03
Chloride 97 mmol/L (98-107) L 12/27/24 09:03
Carbon Dioxide 20 mmol/L (22-30) L 12/27/24 09:03
BUN 51 mg/dl (9-20) H 12/27/24 09:03
Creatinine 1.0 mg/dL (0.7-1.3) 12/27/24 09:03
eGFR > 60.00 12/27/24 09:03
Glucose 145 mg/dl (70-99) H 12/27/24 09:03
Calcium 8.4 mg/dl (8.4-10.2) 12/27/24 09:03
Albumin 2.9 g/dl (3.5-5.0) L 12/27/24 09:03
Physical Exam
-
Vital Signs:
Vital Signs
Temp Pulse Resp BP Pulse Ox
97.8 F 88 16 122/70 99
12/27/24 15:00 12/27/24 15:00 12/27/24 15:00 12/27/24 15:00 12/27/24 15:00
Cardiovascular:: Regular rate and rhythm
Respiratory:: Bilateral: CTA
Lung Excursion:: Normal
Abdomen:: Nontender and Soft
Bowel Sounds:: Normal
Extremity Edema:: None: Bilateral:
[2024-12-27] MEDS: HEPARIN 5000 UNITS SC ×2 (16:50→23:28)
[2024-12-27 17:48] LABS: Glucose - Point of Care 172 mg/dl (70-99)
[2024-12-27] MEDS: NOVOLOG FLEXPEN-LOW RESISTANCE 1 UNITS SC (18:03)
[2024-12-27] MEDS: FLUSH (NSS) 1 FLUSH IV (20:32)
[2024-12-27 21:11] LABS: Glucose - Point of Care 158 mg/dl (70-99)
[2024-12-27 23:26] VITALS: BP 102/54
[2024-12-28] MEDS: SYNTHROID 112 MCG PO (06:04)
[2024-12-28 07:00] VITALS: BP 117/69
[2024-12-28 07:39] LABS: Blood Urea Nitrogen 56 mg/dl (9-20); Calcium 8.2 mg/dl (8.4-10.2); Carbon Dioxide 22 mmol/L (22-30); Chloride 97 mmol/L (98-107); Estimated Creatinine Clearance 60 ml/min; Glucose 135 mg/dl (70-99); Potassium 4.3 mmol/L (3.5-5.1); Sodium 128 mmol/L (135-145); eGFR > 60.00
[2024-12-28] MEDS: LASIX 40 MG PO (07:46)
[2024-12-28] MEDS: XIFAXAN 550 MG PO ×2 (07:47→20:33)
[2024-12-28] MEDS: HEPARIN 5000 UNITS SC ×2 (07:47→17:10)
[2024-12-28] MEDS: DUPHALAC/CHRONULAC 20 GRAMS PO ×4 (07:47→21:36)
[2024-12-28 08:40] LABS: Glucose - Point of Care 137 mg/dl (70-99)
[2024-12-28] MEDS: NOVOLOG FLEXPEN-LOW RESISTANCE SC ×2 (08:49→16:57)
--- NOTE | 2024-12-28 09:50 | W.PN.HOSP.TC ---
Today's Communication/Plan
-
improving sodium - follow labs
Abd more distended - repeat paracentesis - IRAD contaced
Assessment / Plan
Assessment / Plan
69yo M with PMHx of cholecystectomy, stage 3 HCC, liver cirrhosis, HTN, HLD, hypothyroidism, recent admission for hepatic encephalopathy readmitted after eposode of vomiting found recurrent hepatic encephalopathy and RED. RED resolved after
paracentesis and volume expansion with Albumin. No indication of SBP on labs from initial paracentesis. Repeated
A/P:
#Acute hepatic encephalopathy
#RED, ruled out HRS
#Hyponatremia
#Hyperkalemia
#Liver cirrhosis with ascites
follow Cr
avoid diuretics
Albumin for volume expansion -Cr improved, no concern for HRS
s/p paracentesis on 12/22/24 - cell count not concerning for SBP, Cx neg too. Transudate with low protein - hepatic origin. PAth w/o malignant cells. Repeated paracentesis requested on 12/28/24 due to worsening abd distension. Cell count, gram stain
with Cx ordered only
COnt rifaximin and lactulose as per GI
follow and correct electrolytes
S/P Samca as per meter reading clerk on 12/26/24
Fluid restriction
Nephro mgmt
#elevated LFT 2/2 cirrhosis
follow LFT
#elevated lipase
MRI showed cystic foci, however no acute inflammation
#1.8 x 0.8 cm nodule along the right diaphragmatic vicki
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
Onc followed - no indication for AC with tumor thrombosis
cont outpatient follow up with established oncologist
#thrombocytopenia
chronic 2/2 cirrhosis
follow CBC
#DM type 2 with neuropathy
Accuchecks
DM diet
Insulin SS
hold Metformin
#Hypothyroidism
#Essential HTN
cont home meds
#Hypocalcemia
replete
#frequent PVCs
asymptomatic
follow and correct electrolytes
#Renal cyst L
no further mgmt
DVT ppx SCDs 2/2 thrombocytopenia
Full code
I have spent at least 51min reviewing chart, test results, communication with consultants, bedside and providing direct patient care
Anticipated Discharge: 24 - 48 hours
Subjective/Interval History
-
Date of Service: December 28, 2024
Objective Data
-
Labs:
Laboratory Results
12/28/24
06:42
Sodium 128 L
Potassium 4.3
Chloride 97 L
Carbon Dioxide 22
BUN 56 H
Creatinine 1.1
Glucose 135 H
Calcium 8.2 L
Vital Signs:
Vital Signs
Temp Pulse Resp BP Pulse Ox
97.6 F 82 16 117/69 100
12/28/24 07:00 12/28/24 07:00 12/28/24 07:00 12/28/24 07:46 12/28/24 07:00
I&O
12/27/24 12/28/24 12/29/24
06:59 06:59 06:59
Intake Total 660 / 660 720 / 720
Output Total 500 / 500 1025 / 1025
Balance 160 / 160 -305 / -305
Review of Systems
-
History Source: Patient
All other systems: Reviewed and negative
Physical Exam
-
General: Well Developed, Well Nourished and No Apparent Distress
Respiratory: Clear to Auscultation
Cardiac: Regular Rhythm
GI: Nondistended and Distended; Negative Soft
Musculoskeletal: No Clubbing, No Cyanosis and No Edema
Neuro: Awake, Alert, Oriented and AO x 3
Psych: Calm
[2024-12-28 12:27] LABS: Glucose - Point of Care 267 mg/dl (70-99)
[2024-12-28] MEDS: NOVOLOG FLEXPEN-LOW RESISTANCE 3 UNITS SC (12:43)
--- NOTE | 2024-12-28 14:42 | W.PN.NEPH.PH ---
Today's Communication / Plan
-
Continue fluid restriction
Assessment/Plan
-
Assessment
Hyponatremia= 129�127
Hyperkalemia
RED after doubling of diuretics as OP= creatinine 1.2
Recurrent ascites
Hepatic encephalopathy
Hepatocellular carcinoma on immunotherapy
Plan
low urine sodium from liver disease/pathophysiology
Daily BMP
Status post paracentesis 12/22
Continue fluid restriction
continue lasix, no aldactone yet
Very little response to high dose of Samsca
Unfortunately without hypertonic saline it is very difficult to improve his sodium
He is otherwise asymptomatic
BMP
Discussed with his at bedside
Paracentesis Sunday
Sodium stable 128
-
-
Date of Service: December 28, 2024
CC / HPI / ROS
-
Chief Complaint:
RED
History of Present Illness:
RED/Cr resolved 0.8
Na 128 better
BP stable
K improved 3.7
Review of Systems:
no CP/SOB
Labs
-
Labs:
WBC 8.5 10^3/uL (4.8-10.8) 12/27/24 09:03
RBC 4.16 10^6/uL (4.70-6.10) L 12/27/24 09:03
Hgb 13.4 g/dL (13.0-18.0) 12/27/24 09:03
Hct 37.9 % (39.0-52.0) L 12/27/24 09:03
Plt Count 76 10^3/uL (130-400) L D 12/27/24 09:03
Sodium 128 mmol/L (135-145) L 12/28/24 06:42
Potassium 4.3 mmol/L (3.5-5.1) 12/28/24 06:42
Chloride 97 mmol/L (98-107) L 12/28/24 06:42
Carbon Dioxide 22 mmol/L (22-30) 12/28/24 06:42
BUN 56 mg/dl (9-20) H 12/28/24 06:42
Creatinine 1.1 mg/dL (0.7-1.3) 12/28/24 06:42
eGFR > 60.00 12/28/24 06:42
Glucose 135 mg/dl (70-99) H 12/28/24 06:42
Calcium 8.2 mg/dl (8.4-10.2) L 12/28/24 06:42
Albumin 2.9 g/dl (3.5-5.0) L 12/27/24 09:03
Physical Exam
-
Vital Signs:
Vital Signs
Temp Pulse Resp BP Pulse Ox
97.6 F 82 16 117/69 100
12/28/24 07:00 12/28/24 07:00 12/28/24 07:00 12/28/24 07:46 12/28/24 07:00
Cardiovascular:: Regular rate and rhythm
Respiratory:: Bilateral: CTA
Lung Excursion:: Normal
Abdomen:: Nontender and Soft
Bowel Sounds:: Normal
Extremity Edema:: None: Bilateral:
[2024-12-28 15:48] VITALS: BP 116/61
[2024-12-28 16:47] LABS: Glucose - Point of Care 139 mg/dl (70-99)
[2024-12-28 21:26] LABS: Glucose - Point of Care 261 mg/dl (70-99)
[2024-12-28 23:34] VITALS: BP 114/71
[2024-12-29] MEDS: HEPARIN 5000 UNITS SC ×3 (00:07→17:15)
[2024-12-29] MEDS: SYNTHROID 112 MCG PO (05:06)
[2024-12-29 06:00] VITALS: BMI 20.2
[2024-12-29 07:13] LABS: INR 1.14; PT 14.9 Sec (11.4-14.6)
[2024-12-29 07:20] LABS: Hematocrit 36.9 % (39.0-52.0); Hemoglobin 12.4 g/dL (13.0-18.0); Mean Corp Hgb Conc. 33.6 g/dL (33.0-37.0); Mean Corpuscular Volume 93.4 fL (80.0-94.0); Red Cell Dist. Width 17.8 % (11.5-14.5)
[2024-12-29 07:28] LABS: ALT (SGPT) 65 U/L (0-50); AST (SGOT) 184 U/L (17-59); Albumin 2.6 g/dl (3.5-5.0); Alkaline Phosphatase 695 U/L (38-126); Blood Urea Nitrogen 56 mg/dl (9-20); Calcium 8.2 mg/dl (8.4-10.2); Carbon Dioxide 25 mmol/L (22-30); Chloride 95 mmol/L (98-107); Estimated Creatinine Clearance 56 ml/min; Glucose 137 mg/dl (70-99); Potassium 4.1 mmol/L (3.5-5.1); Sodium 127 mmol/L (135-145); Total Protein 5.7 g/dl (6.3-8.2); eGFR > 60.00
[2024-12-29 07:45] LABS: Nucleated Red Blood Cells % 0 % (-); Platelet Count 84 10^3/uL (130-400)
[2024-12-29 08:05] LABS: Glucose - Point of Care 135 mg/dl (70-99)
[2024-12-29] MEDS: NOVOLOG FLEXPEN-LOW RESISTANCE SC (08:10)
[2024-12-29 08:21] VITALS: BP 114/65
[2024-12-29] MEDS: XIFAXAN 550 MG PO ×2 (08:35→21:05)
[2024-12-29] MEDS: DUPHALAC/CHRONULAC 20 GRAMS PO ×3 (08:35→21:05)
[2024-12-29 09:00] VITALS: BP 111/62; BP_SYST 88
[2024-12-29 09:24] VITALS: BP 114/64
[2024-12-29 09:39] VITALS: BP 108/61
[2024-12-29] MEDS: LASIX 40 MG PO (09:40)
--- NOTE | 2024-12-29 09:42 | TRANSFER ---
pt arrived from IR post paracentesis- 3100 cc fluid drained. bandaid CDI on R abdomen. VSS. pt resting in bed, POC ongoing.
--- NOTE | 2024-12-29 10:15 | CM ---
Chart reviewed and case management associate met with patient this morning, patient is for possible Paracentesis today. Patient did well with physical therapy 50 feet and then 100 feet with no assisted device, and plan is to home with spouse when stable,
patient has declined the need for outpatient PT/OT.
Plan; Home with spouse no needs.
[2024-12-29 10:30] LABS: Body Fluid Second Tech EF
--- NOTE | 2024-12-29 10:53 | W.PN.NEPH.PH ---
Today's Communication / Plan
-
Maintain fluid restriction and oral Lasix
Maintaining hyponatremia is going to be very difficult as an outpatient as he has required multiple doses of hypertonic saline, this is due to the strong ADH stimulus from his underlying malignancy
Assessment/Plan
-
Assessment
Hyponatremia= 129�127
Hyperkalemia
RED after doubling of diuretics as OP= creatinine 1.2
Recurrent ascites
Hepatic encephalopathy
Hepatocellular carcinoma on immunotherapy
Plan
low urine sodium from liver disease/pathophysiology
Sodium remains at 127
Creatinine stable at 1.2
Daily BMP
Status post paracentesis 12/22
Continue fluid restriction
continue lasix 40mg daily, no aldactone yet
Very little response to high dose of Samsca
Unfortunately without hypertonic saline it is very difficult to improve his sodium
He is otherwise asymptomatic
BMP
Paracentesis Sunday
-
-
Date of Service: December 29, 2024
CC / HPI / ROS
-
Chief Complaint:
RED
History of Present Illness:
creatinine at 1.2
Na down to 127
BP stable
K improved 4.1
Review of Systems:
no CP/SOB
Labs
-
Labs:
WBC 8.3 10^3/uL (4.8-10.8) 12/29/24 06:36
RBC 3.95 10^6/uL (4.70-6.10) L 12/29/24 06:36
Hgb 12.4 g/dL (13.0-18.0) L 12/29/24 06:36
Hct 36.9 % (39.0-52.0) L 12/29/24 06:36
Plt Count 84 10^3/uL (130-400) L 12/29/24 06:36
Sodium 127 mmol/L (135-145) L 12/29/24 06:36
Potassium 4.1 mmol/L (3.5-5.1) 12/29/24 06:36
Chloride 95 mmol/L (98-107) L 12/29/24 06:36
Carbon Dioxide 25 mmol/L (22-30) 12/29/24 06:36
BUN 56 mg/dl (9-20) H 12/29/24 06:36
Creatinine 1.2 mg/dL (0.7-1.3) 12/29/24 06:36
eGFR > 60.00 12/29/24 06:36
Glucose 137 mg/dl (70-99) H 12/29/24 06:36
Calcium 8.2 mg/dl (8.4-10.2) L 12/29/24 06:36
Albumin 2.6 g/dl (3.5-5.0) L 12/29/24 06:36
Physical Exam
-
Vital Signs:
Vital Signs
Temp Pulse Resp BP Pulse Ox
97.4 F 90 16 108/61 96
12/29/24 09:39 12/29/24 09:40 12/29/24 09:39 12/29/24 09:40 12/29/24 09:39
Cardiovascular:: Regular rate and rhythm
Respiratory:: Bilateral: CTA
Lung Excursion:: Normal
Abdomen:: Nontender and Soft
Bowel Sounds:: Normal
Extremity Edema:: None: Bilateral:
[2024-12-29 11:31] LABS: Glucose - Point of Care 223 mg/dl (70-99)
[2024-12-29] MEDS: NOVOLOG FLEXPEN-LOW RESISTANCE 2 UNITS SC (12:16)
[2024-12-29] MEDS: DUPHALAC/CHRONULAC PO ×2 (12:17→12:20)
--- NOTE | 2024-12-29 14:15 | W.PN.HOSP.TC ---
Today's Communication/Plan
-
paracentesis
monitor na level
Assessment / Plan
Assessment / Plan
69yo M with PMHx of cholecystectomy, stage 3 HCC, liver cirrhosis, HTN, HLD, hypothyroidism, recent admission for hepatic encephalopathy readmitted after eposode of vomiting found recurrent hepatic encephalopathy and RED. RED resolved after
paracentesis and volume expansion with Albumin. No indication of SBP on labs from initial paracentesis. Repeated
A/P:
#Acute hepatic encephalopathy
#RED, ruled out HRS
#Hyponatremia
#Hyperkalemia
#Liver cirrhosis with ascites
follow Cr
avoid diuretics
Albumin for volume expansion -Cr improved, no concern for HRS
s/p paracentesis on 12/22/24 - cell count not concerning for SBP, Cx neg too. Transudate with low protein - hepatic origin. PAth w/o malignant cells. Repeated paracentesis requested on 12/28/24 due to worsening abd distension. Cell count, gram stain
with Cx ordered only
COnt rifaximin and lactulose as per GI
follow and correct electrolytes
S/P Samca as per catalyst supervisor on 12/26/24
Fluid restriction
Nephro mgmt
#elevated LFT 2/2 cirrhosis
follow LFT
#elevated lipase
MRI showed cystic foci, however no acute inflammation
#1.8 x 0.8 cm nodule along the right diaphragmatic vicki
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
Onc followed - no indication for AC with tumor thrombosis
cont outpatient follow up with established oncologist
#thrombocytopenia
chronic 2/2 cirrhosis
follow CBC
#DM type 2 with neuropathy
Accuchecks
DM diet
Insulin SS
hold Metformin
#Hypothyroidism
#Essential HTN
cont home meds
#Hypocalcemia
replete
#frequent PVCs
asymptomatic
follow and correct electrolytes
#Renal cyst L
no further mgmt
DVT ppx SCDs 2/2 thrombocytopenia
Full code
Anticipated Discharge: Within 24 hours
Subjective/Interval History
-
Date of Service: December 29, 2024
Paracentesis today, drained 3.1 L
Objective Data
-
Labs:
Laboratory Results
12/29/24
06:36
WBC 8.3
Hgb 12.4 L
Hct 36.9 L
Plt Count 84 L
PT 14.9 H
INR 1.14
Sodium 127 L
Potassium 4.1
Chloride 95 L
Carbon Dioxide 25
BUN 56 H
Creatinine 1.2
Glucose 137 H
Calcium 8.2 L
Total Bilirubin 2.6 H
AST 184 H
ALT 65 H
Alkaline Phosphatase 695 H
Vital Signs:
Vital Signs
Temp Pulse Resp BP Pulse Ox
97.4 F 90 16 108/61 96
12/29/24 09:39 12/29/24 09:40 12/29/24 09:39 12/29/24 09:40 12/29/24 09:39
I&O
12/28/24 12/29/24 12/30/24
06:59 06:59 06:59
Intake Total 720 / 720 840 / 840 240 / 240
Output Total 1025 / 1025 750 / 750
Balance -305 / -305 90 / 90 240 / 240
Review of Systems
-
History Source: Patient
All other systems: Reviewed and negative
Physical Exam
-
General: Well Developed, Well Nourished and No Apparent Distress
Respiratory: Clear to Auscultation
Cardiac: Regular Rhythm
GI: Nondistended and Distended; Negative Soft
Musculoskeletal: No Clubbing, No Cyanosis and No Edema
Neuro: Awake, Alert, Oriented and AO x 3
Psych: Calm
Data Reviewed
-
Diagnostic Radiology: Report Reviewed by me
CT Scan: Report Reviewed by me
Labs: Labs Reviewed by me
[2024-12-29 15:51] VITALS: BP 110/59
[2024-12-29 16:59] LABS: Glucose - Point of Care 197 mg/dl (70-99)
[2024-12-29] MEDS: NOVOLOG FLEXPEN-LOW RESISTANCE 1 UNITS SC (17:15)
[2024-12-29 21:02] LABS: Glucose - Point of Care 162 mg/dl (70-99)
[2024-12-29 23:00] VITALS: BP 114/67
[2024-12-30] MEDS: HEPARIN 5000 UNITS SC ×2 (00:30→08:16)
[2024-12-30] MEDS: SYNTHROID 112 MCG PO (04:32)
[2024-12-30 06:00] VITALS: BMI 19.4
[2024-12-30 07:15] VITALS: BP 110/69
[2024-12-30 07:54] LABS: Glucose - Point of Care 156 mg/dl (70-99)
[2024-12-30] MEDS: NOVOLOG FLEXPEN-LOW RESISTANCE 1 UNITS SC (08:15)
[2024-12-30] MEDS: XIFAXAN 550 MG PO (08:15)
[2024-12-30] MEDS: DUPHALAC/CHRONULAC 20 GRAMS PO (08:15)
[2024-12-30 08:49] LABS: Blood Urea Nitrogen 64 mg/dl (9-20); Calcium 8.3 mg/dl (8.4-10.2); Carbon Dioxide 23 mmol/L (22-30); Chloride 95 mmol/L (98-107); Estimated Creatinine Clearance 53 ml/min; Glucose 123 mg/dl (70-99); Potassium 3.9 mmol/L (3.5-5.1); Sodium 128 mmol/L (135-145); eGFR > 60.00
[2024-12-30] MEDS: LASIX 40 MG PO (09:37)
--- NOTE | 2024-12-30 09:49 | CM ---
Plan is to home when stable, patient has declined script for outpatient PT/OT.
Plan; Home with spouse no needs.
--- NOTE | 2024-12-30 10:39 | W.PN.NEPH.PH ---
Today's Communication / Plan
-
Stable for discharge from our perspective
Will add salt tablet in addition to Lasix and fluid restrict
Will need follow-up with his primary care physician or oncology to follow his sodium with repeat BMP next
Assessment/Plan
-
Assessment
Hyponatremia= 129�127
Hyperkalemia
RED after doubling of diuretics as OP= creatinine 1.2
Recurrent ascites
Hepatic encephalopathy
Hepatocellular carcinoma on immunotherapy
Plan
low urine sodium from liver disease/malignancy
Sodium remains at 128, will add salt tablet daily
Creatinine stable at 1.2
Daily BMP
Status post paracentesis 12/22
Continue fluid restriction
continue lasix 40mg daily, no aldactone yet
Stable for discharge from our perspective
Very little response to high dose of Samsca
Unfortunately without hypertonic saline it is very difficult to improve his sodium
-
-
Date of Service: December 30, 2024
CC / HPI / ROS
-
Chief Complaint:
RED
History of Present Illness:
creatinine at 1.2
Na down to 128
BP stable
Review of Systems:
no CP/SOB
Labs
-
Labs:
WBC 8.3 10^3/uL (4.8-10.8) 12/29/24 06:36
RBC 3.95 10^6/uL (4.70-6.10) L 12/29/24 06:36
Hgb 12.4 g/dL (13.0-18.0) L 12/29/24 06:36
Hct 36.9 % (39.0-52.0) L 12/29/24 06:36
Plt Count 84 10^3/uL (130-400) L 12/29/24 06:36
Sodium 128 mmol/L (135-145) L 12/30/24 06:32
Potassium 3.9 mmol/L (3.5-5.1) 12/30/24 06:32
Chloride 95 mmol/L (98-107) L 12/30/24 06:32
Carbon Dioxide 23 mmol/L (22-30) 12/30/24 06:32
BUN 64 mg/dl (9-20) H 12/30/24 06:32
Creatinine 1.2 mg/dL (0.7-1.3) 12/30/24 06:32
eGFR > 60.00 12/30/24 06:32
Glucose 123 mg/dl (70-99) H 12/30/24 06:32
Calcium 8.3 mg/dl (8.4-10.2) L 12/30/24 06:32
Albumin 2.6 g/dl (3.5-5.0) L 12/29/24 06:36
Physical Exam
-
Vital Signs:
Vital Signs
Temp Pulse Resp BP Pulse Ox
97.6 F 86 18 106/63 100
12/30/24 07:15 12/30/24 09:37 12/30/24 07:15 12/30/24 09:37 12/30/24 08:00
Cardiovascular:: Regular rate and rhythm
Respiratory:: Bilateral: CTA
Lung Excursion:: Normal
Abdomen:: Nontender and Soft
Bowel Sounds:: Normal
Extremity Edema:: None: Bilateral:
[2024-12-30 11:02] VITALS: BP 111/65; BP 94/59; BP 96/59; PULSE 103; PULSE 90
[2024-12-30] MEDS: DUPHALAC/CHRONULAC PO (12:09)
[2024-12-30 12:14] LABS: Glucose - Point of Care 202 mg/dl (70-99)
[2024-12-30] MEDS: NOVOLOG FLEXPEN-LOW RESISTANCE 2 UNITS SC (12:16)
--- NOTE | 2024-12-30 12:21 | W.PN.HOSP.TC ---
Addendum entered and electronically signed by Edward Hall MD 12/30/24 14:54:
[id number]
Original Note:
Today's Communication/Plan
-
lasix 40mg daily
fluid restriction
salt tabs daily
f/u cmp in 1 week with pcp/oncology
hold aldactone for now
lactulose, rifaxamin
Assessment / Plan
Assessment / Plan
69yo M with PMHx of cholecystectomy, stage 3 HCC, liver cirrhosis, HTN, HLD, hypothyroidism, recent admission for hepatic encephalopathy readmitted after eposode of vomiting found recurrent hepatic encephalopathy and RED. RED resolved after
paracentesis and volume expansion with Albumin. No indication of SBP on labs from initial paracentesis. Repeated
A/P:
#Acute hepatic encephalopathy
#RED, ruled out HRS
#Hyponatremia
#Hyperkalemia
#Liver cirrhosis with ascites
follow Cr
avoid diuretics
Albumin for volume expansion -Cr improved, no concern for HRS
s/p paracentesis on 12/22/24 - cell count not concerning for SBP, Cx neg too. Transudate with low protein - hepatic origin. PAth w/o malignant cells. Repeated paracentesis requested on 12/28/24 due to worsening abd distension. Cell count, gram stain
with Cx ordered only
COnt rifaximin and lactulose as per GI
follow and correct electrolytes
Lasix 40mg daily
S/P Samca as per fruit tester on 12/26/24
Fluid restriction
Nephro mgmt
Added salt tabs
F/u BMP outpt
Hold spironolactone
#elevated LFT 2/2 cirrhosis
follow LFT
f/u outpt
#elevated lipase
MRI showed cystic foci, however no acute inflammation
#1.8 x 0.8 cm nodule along the right diaphragmatic vicki
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
Onc followed - no indication for AC with tumor thrombosis
cont outpatient follow up with established oncologist
#thrombocytopenia
chronic 2/2 cirrhosis
follow CBC
#DM type 2 with neuropathy
Accuchecks
DM diet
Insulin SS
hold Metformin
#Hypothyroidism
#Essential HTN
cont home meds
#Hypocalcemia
replete
#frequent PVCs
asymptomatic
follow and correct electrolytes
#Renal cyst L
no further mgmt
DVT ppx SCDs 2/2 thrombocytopenia
Full code
More than 30 minutes spent in discharge including
Final examination of the patient
Summarizing hospital stay
Instructions for continuing care to all relevant caregivers
Preparation of discharge records, prescriptions, and referral forms
Total time spent (in minutes): 36
Anticipated Discharge: Today
Subjective/Interval History
-
Date of Service: December 30, 2024
no acute events
Objective Data
-
Labs:
Laboratory Results
12/30/24
06:32
Sodium 128 L
Potassium 3.9
Chloride 95 L
Carbon Dioxide 23
BUN 64 H
Creatinine 1.2
Glucose 123 H
Calcium 8.3 L
Vital Signs:
Vital Signs
Temp Pulse Resp BP Pulse Ox
97.6 F 86 18 106/63 100
12/30/24 07:15 12/30/24 09:37 12/30/24 07:15 12/30/24 09:37 12/30/24 08:00
I&O
12/29/24 12/30/24 12/31/24
06:59 06:59 06:59
Intake Total 840 / 840 660 / 660
Output Total 750 / 750 650 / 650
Balance 90 / 90
Review of Systems
-
History Source: Patient
All other systems: Not reviewed unless documented
Data Reviewed
-
Diagnostic Radiology: Report Reviewed by me
CT Scan: Report Reviewed by me
Labs: Labs Reviewed by me
--- NOTE | 2024-12-30 12:41 | W.DS.TRANS ---
DC Summary - [employer]
-
Discharge Instructions:
Discharge Diagnosis/Procedures
#Acute hepatic encephalopathy
#RED
#Hyponatremia
#Hyperkalemia
#Liver cirrhosis with ascites
Diet Low Cholesterol,Low Fat,Restrict fluids to 48 oz
Blood Work CMP in 1 week with pcp/oncology
Others Tests as per oncology outpt
Instructions:
Stand-Alone Forms:
Changes to Home Medications: Yes
Discharge Medications:
DC Medications w/original date entered in doo
metformin 500 mg tablet 1,000 mg PO DAILY Diabetes 02/05/14
spironolactone 100 mg tablet 200 mg PO DAILY Fluid Retention/BP 11/26/24
Held on 12/30/24. Instructions: Resume on 01/28/25. hold until cleared by pcp/oncology or hepatology
levothyroxine 112 mcg tablet 112 mcg PO DAILY Thyroid 12/14/24
lidocaine-prilocaine 2.5 %-2.5 % topical cream 1 applic topical DAILYPRN PRN port access 12/14/24
ondansetron HCl 8 mg tablet 8 mg PO Q8HPRN PRN nausea 12/14/24
lactulose 10 gram/15 mL oral solution 20 g (30 mL) PO QID 30 days #3,600 mL 12/18/24
Ammonia Levels #1 ea 12/30/24
Comprehensive Metabolic Panel #1 ea 12/30/24
furosemide 40 mg tablet 40 mg PO DAILY 30 days #30 tabs 12/30/24
rifaximin 550 mg tablet (Xifaxan) 550 mg PO BID liver 30 days #60 tabs 12/30/24
sodium chloride 1,000 mg soluble tablet 1,000 mg PO DAILY 30 days #30 tabs 12/30/24
Home Medication Changes
furosemide 40 mg tablet 40 mg PO DAILY 30 days #30 tabs 12/30/24
rifaximin 550 mg tablet (Xifaxan) 550 mg PO BID liver 30 days #60 tabs 12/30/24
sodium chloride 1,000 mg soluble tablet 1,000 mg PO DAILY 30 days #30 tabs 12/30/24
Pending Results: No
[2024-12-30 12:57] LABS: Glucose - Point of Care 171 mg/dl (70-99)
[2024-12-30 13:38] VITALS: BP 116/65
== END 2024-12-30 14:18 | disposition home or self-care (01) | DRG 435 ==
LOC: 4 EAST ACU 03:33
PROVIDERS: Emergency Medicine; Internal Medicine; Nurse Practitioner Adult Health; Radiology Diagnostic Radiology; Radiology Vascular & Interventional Radiology; Specialist; ADMITTING PHYSICIAN Internal Medicine; ATTENDING PHYSICIAN Internal Medicine; CONSULT PHYSICIAN Internal Medicine Gastroenterology; CONSULT PHYSICIAN Specialist; EMERGENCY PHYSICIAN Emergency Medicine; FAMILY PHYSICIAN Student in an Organized Health Care Education/Training Program; OTHER PHYSICIAN Internal Medicine Hematology & Oncology
PROC: 0W9G3ZZ Drainage of Peritoneal Cavity, Percutaneous Approach (ICD-10-PCS; 2024-12-22)
DX: C22.0 Liver cell carcinoma (principal); I81 Portal vein thrombosis; E22.2 Syndrome of inappropriate secretion of antidiuretic hormone; N17.9 Acute kidney failure, unspecified; R18.8 Other ascites; K76.6 Portal hypertension; K76.82 Hepatic encephalopathy; E87.5 Hyperkalemia; I25.2 Old myocardial infarction; E11.9 Type 2 diabetes mellitus without complications; I10 Essential (primary) hypertension; Z79.84 Long term (current) use of oral hypoglycemic drugs; E03.9 Hypothyroidism, unspecified; Z90.49 Acquired absence of other specified parts of digestive tract; Z88.0 Allergy status to penicillin; Z79.890 Hormone replacement therapy; Z79.899 Other long term (current) drug therapy; E78.00 Pure hypercholesterolemia, unspecified; K75.81 Nonalcoholic steatohepatitis (NASH)
CPT/HCPCS: 49083; 74022; 74183; 76700; 80048; 80053; 80076; 82042; 82140; 82248; 82570; 82962; 83690; 83735; 84157; 84300; 84439; 84443; 85025; 85027; 85610; 87015; 87070; 87205; 88112; 88305; 89051; 93005; 96361; 96365; 96375; 97116; 97162; 97166; 97535; 99284; P9047

== ENCOUNTER 2024-12-31 05:32 | Inpatient (IN) | payer MEDICARE, SELFPAY ==
[2024-12-31] VITALS (15 sets, daily range): BP systolic 89–121; BP diastolic 48–70; PULSE 88; BMI 18.1; BMI 19.5
--- NOTE | 2024-12-31 02:25 | ED.GENMED ---
History of Present Illness
General
Chief Complaint: Change in Mental Status
Source: patient, family and ambulance crew
Time Seen by Provider: 12/31/24 02:23
Nursing documentation reviewed up to this point in time: agreed with
History of Present Illness
History of Present Illness:
Note:
CHIEF COMPLAINT(S)
Altered mental status and weakness.
HISTORY OF PRESENT ILLNESS
The patient is a 69-year-old male with a history of liver cancer and past episodes of hepatic encephalopathy presenting with altered mental status and weakness. According to family members, he was functioning normally at 9:30 PM but was notably
weaker and not acting himself the following morning, orientated only to his name. It was noted that, during a previous similar episode, his laboratory results revealed markedly elevated ammonia levels and hyponatremia, which were indicative of his
hepatic dysfunction and ultimately led to the diagnosis of liver cancer. There is no reported history of fever. The patient is unaware of his current situation and is on dietary restrictions. His family has ensured adherence to prescribed
medications and treatment plans without non-prescribed medications intake.
PAST MEDICAL AND SURIGICAL HISTORY
Significant for liver cancer with past documented episodes of hepatic encephalopathy.
CHRONIC MEDICAL CONDITIONS SIGNIFICANTLY AFFECTING CARE
Liver cancer and past episodes of hepatic encephalopathy.
REVIEW OF SYSTEMS
- Neurological: Altered mental status, confusion.
- General: Weakness.
- No reports of fever or other systemic symptoms.
PHYSICAL EXAM
General: Alert, no acute distress.
Skin: Warm, dry.
Head: Normocephalic, atraumatic.
Neck: Supple, trachea midline.
Eye, Ears, Nose, Mouth, and Throat: Oral mucosa moist.
Cardiovascular: Normal peripheral perfusion, No edema.
Respiratory: Respirations are non-labored.
Gastrointestinal: Abdomen nondistended.
Back: Normal range of motion, Normal alignment.
Musculoskeletal: Normal range of motion, normal strength.
Neurological: Alert and oriented to name, altered mental status noted, No focal neurological deficit observed.
Psychiatric: Cooperative, appropriate mood & affect.
PROBLEM LIST
Acute Problems:
- Altered mental status
- Weakness
Chronic Problems:
- Liver cancer
- Past episodes of hepatic encephalopathy
PLAN
- Conduct complete blood panel focusing on liver function tests and ammonia levels.
- Monitor mental status and orientation.
- Ensure dietary adherence and medication compliance.
- Follow-up with oncology for liver cancer management.
DIFFERENTIAL DIAGNOSIS
The Differential Diagnosis includes, in no particular order and is not limited to:
1. Hepatic encephalopathy
2. Metabolic encephalopathy
3. Electrolyte imbalance
4. Infection leading to sepsis
5. Stroke or transient ischemic attack
6. Medication side effect
7. Uremic encephalopathy
8. Intracranial hemorrhage
9. Hepatocellular carcinoma progression
10. Alcohol or drug intoxication
Disposition:
SUMMARY OF ENCOUNTER
A 69-year-old male presented via EMS with altered mental status. The patient has a history of liver cancer and ascites and was discharged yesterday in normal mental status. His reported that he exhibited confusion when going to bed. Laboratory
tests today showed an increased ammonia level of 95 (up from 75), sodium level of 126 (down from 128), and a white blood cell count of 10.9 (up from 8.3). Based on these findings and the new confusion, the decision was made to admit the patient to
the hospitalist service for further management.
DISPOSITION
Admit
ASSESSMENT
The assessment involves altered mental status potentially secondary to hepatic encephalopathy, considering elevated ammonia levels and hyponatremia.
MANAGEMENT OF THE PATIENTS CARE WAS DISCUSSED WITH
Hospitalist service was made aware and is in agreement with the plan.
INDEPENDENT REVIEW OF LABS AND INTERPRETATION OF TESTS
- My independent review of CMP indicates hyponatremia with sodium at 126, down from 128.
- My independent review of ammonia levels indicates an elevation to 95 from 75.
- My independent review of CBC reflects a white blood cell count increase to 10.9, up from 8.3.
MEDICAL DECISION MAKING
- Complexity of Data Reviewed: Chronic conditions affecting care include liver cancer and past episodes of hepatic encephalopathy. Differential diagnosis includes hepatic encephalopathy, metabolic encephalopathy, electrolyte imbalance, infection
leading to sepsis, stroke or transient ischemic attack, medication side effect, uremic encephalopathy, intracranial hemorrhage, hepatocellular carcinoma progression, alcohol or drug intoxication.
- Data:
Category 1
I reviewed the patients recent lab tests: sodium, ammonia levels, and CBC.
Category 2
Clinical information was obtained from the patient�s as an independent historian.
Category 3
Discussion of management occurred with the hospitalist service.
-Risk:
Prescription medication management or therapies requiring monitoring for toxicity.
DIAGNOSIS
Hepatic encephalopathy (K76.81), Hyponatremia (E87.1)
Past History
Past History
ED Past Medical History: Cancer, HTN and Hypercholesterolemia
ED Past Surgical History: Cholecystectomy
Social History
Tobacco: Non-smoker
Alcohol: Former
Drug: None
Personal:
Living: with family
Employment: Employed
Family History
Family History: Other (Noncontributory)
Phy Exam
Physical Exam
Physical Exam:
.
Course
Orders/Labs/Results
Orders:
Orders
12/31/24 02:23
Ammonia Urgent
CMP [Comprehensive Metabolic Panel] Urgent
Complete Blood Count/With Diff Urgent
12/31/24 02:26
Urinalysis Reflex To Culture Urgent
12/31/24 03:21
CT Head W/o Iv Contrast Urgent
Comment:
Reason For Exam: change in ms
12/31/24 03:45
0.9% Sodium Chloride 1000 ml [Nss] 1,000 ml IV 250 mls/hr
12/31/24 05:02
Admit/Transfer Patient As Directed
Co-Sign Provider:
Level of Care: Inpatient admission
Assign to:: Telemetry
Physician / Group: Rell
Diagnosis: Acute on Chronic Hepatic Encephalopathy
Reason for Telemetry: Arrhythmia
Date to Stop Telemetry: 01/03/25
Time to Stop Telemetry: 11:00
Reason for Hospitalization: Acute on Chronic Hepatic Encephalopathy
Expected length of stay greater than two midnights?: Yes
ELOS- Estimated Length of Stay in days: 2
I certify the patient meets the requirements for IP care: Yes
PRN Pain Medication Management As Directed
May give lesser potent ordered pain med per pt: Yes
preference::
Protocol:: Medication orders for pain may be administered in a
manner that supports deferring to patient preference
when the pt is:
- Requesting an ordered lesser potent pain medication.
Least to most potent pain medications are defined
as: acetaminophen < NSAID < tramadol < opioids
(morphine, oxycodone, hydromorphone).
- Requesting a lesser dose of the same medication IF
ORDERED.
- Requesting a less intrusive route of administration
if both routes are prescribed by the provider (PO <
IV).
12/31/24 05:03
Code Status As Directed
Resuscitation Status: Full Code
12/31/24 05:39
Dextrose 50%-Water [Dextrose 50% Syringe] 12.5 grams IV [id number] PRN
Glucagon [GlucaGen] 1 mg IM PRN PRN
Lidocaine 2.5%/Prilocaine 2.5% [Emla Cream] See Dose Instructions TOPICAL DAILYPRN PRN port access
12/31/24 05:39
Activity As Directed
Activity Level: Ambulate
With Assistance
Bedside Glucose Monitoring As Directed
Frequency: AC&HS
Additional Instructions:: Change to q6h if pt on TPN, tube feeding or not eating
Bladder Scan As Directed
Follow Bladder Retention/Intermittent Cath Algorithm?: Yes
PRN if no void in __ hours: 6
Frequency: Per Retention Algorithm
If Bladder Scan Result >: 400
then:: Straight cath
EKG with chest pain [ECG as needed] As Directed
ECG as needed for:: Chest Pain
I/O [Intake/ Output] As Directed
Frequency: Per unit guidelines
Pneumatic Compression Sleeves As Directed
Type: Knee high
Straight Cath As Directed
Frequency: Per Retention Algorithm
Additional Instructions: straight cath as needed per acute urinary retention algorithm for 24 hrs
Additional Instructions: for bladder scan greater than 400 mL
Vital Signs As Directed
Frequency: Per unit guidelines
Weight As Directed
Frequency: Daily
Oxygen Therapy [O2 Therapy] [RESP] Routine
Titrate/Wean O2 to maintain O2 sat greater than (%): 94
PT Consult [Pt Eval And Treat] Routine
Activity Level: Ambulate
With Assistance
DX Deep Vein Thrombosis Video Routine
12/31/24 05:48
Ondansetron Orally Disint [Zofran Odt (Orally Disintegrating)] 8 mg PO Q8HPRN PRN
12/31/24 Breakfast
1800 calorie (15 carb) Diabetic
Fluid Restriction: 1440 mL/day (48 oz)
Levothyroxine [Synthroid] 112 mcg PO DAILY @ 0600
12/31/24 07:30
Insulin Aspart Corrective Low [Novolog Flexpen-Low Resistance] See Protocol SC AC
12/31/24 08:00
Furosemide [Lasix] 40 mg PO DAILY
Lactulose [Duphalac/Chronulac] 20 grams PO QID
Rifaximin [Xifaxan] 550 mg PO BID
Sodium Chloride 1 gram PO DAILY
01/03/25 11:00
DC Protocol for Telemetry ONCE
Abnormal Lab Results
12/31/24
02:23
WBC 10.9 H 10^3/uL
(4.8-10.8)
RBC 3.83 L 10^6/uL
(4.70-6.10)
Hgb 12.4 L g/dL
(13.0-18.0)
Hct 35.5 L %
(39.0-52.0)
MCH 32.4 H pg
(27.0-31.0)
RDW 18.0 H %
(11.5-14.5)
Plt Count 129 L D 10^3/uL
(130-400)
Abs Immat Gran (auto) 0.1 H 10^3/uL
(0-0.05)
Absolute Neuts (auto) 7.8 H 10^3/uL
(1.4-6.5)
Absolute Monos (auto) 1.3 H 10^3/uL
(0.1-0.6)
Immature Gran % 0.6 H %
(0-0.5)
Lymphocytes % 14.9 L %
(20.5-51.1)
Monocytes % 12.3 H %
(1.7-9.3)
Sodium 126 L mmol/L
(135-145)
Chloride 95 L mmol/L
(98-107)
BUN 67 H mg/dl
(9-20)
Glucose 147 H mg/dl
(70-99)
Calcium 8.2 L mg/dl
(8.4-10.2)
Total Bilirubin 2.6 H mg/dl
(0.2-1.3)
AST 163 H U/L
(17-59)
ALT 62 H U/L
(0-50)
Alkaline Phosphatase 803 H U/L
(38-126)
Ammonia 95 H umol/L
(9-30)
Total Protein 5.9 L g/dl
(6.3-8.2)
Albumin 2.6 L g/dl
(3.5-5.0)
12/31/24 02:23
12/31/24 02:23
Vital Signs
Initial and Last Documented VS:
Initial Vital Signs
Temp Pulse Resp BP Pulse Ox
97.6 F 84 18 116/63 100
12/31/24 02:06 12/31/24 02:06 12/31/24 02:06 12/31/24 02:06 12/31/24 02:06
Last Documented Vital Signs
Temp Pulse Resp BP Pulse Ox
97.6 F 78 16 115/59 100
12/31/24 02:06 12/31/24 06:15 12/31/24 06:15 12/31/24 06:00 12/31/24 06:15
*Pulse Oximetry
SaO2: 99
Oxygen Mode of Delivery: Room air
Patient hypoxic: no
*Critical Care Note
Total Time (30-74mins, 75-104mins- exclusive of procedures): Not Applicable
ED Attending Note
-
Portions of this chart may have been created with voice recognition software.� Occasional wrong word or��sound alike� substitutions may have occurred due to the inherent limitations of voice recognition software.
Discharge Plan
Departure
Patient Disposition: Admit
Date of Disposition: 12/31/24
Time of Disposition: 05:19
Admit to: Telemetry
Presentation/result/management discussed w/ accepting MD/DO: Hospitalist
Discharge Problem:
Altered mental status, Acute hyponatremia, Carcinoma of liver, hepatocellular, Ascites
Interventions
Interventions:
*Risk Screen - Suicide Last Done: 12/31/24 02:06
*General Assessment Last Done: 12/31/24 02:06
*Neglect/Abuse Screening Last Done: 12/31/24 02:06
*ED- Fall Risk Assessment Last Done: 12/31/24 02:14
*ED COVID-19 Vaccine History Last Done: 12/31/24 02:14
ED- Pulmonary Assessment Last Done: 12/31/24 02:21
ED- Neurological Assessment Last Done: 12/31/24 02:14
ED Swallowing Screen Last Done: 12/31/24 05:31
[2024-12-31 02:36] LABS: Hematocrit 35.5 % (39.0-52.0); Hemoglobin 12.4 g/dL (13.0-18.0); Mean Corp Hgb Conc. 34.9 g/dL (33.0-37.0); Mean Corpuscular Volume 92.7 fL (80.0-94.0); Nucleated Red Blood Cells % 0 % (-); Platelet Count 129 10^3/uL (130-400); Red Cell Dist. Width 18.0 % (11.5-14.5)
[2024-12-31 02:57] LABS: Ammonia 95 umol/L (9-30)
[2024-12-31 02:58] LABS: ALT (SGPT) 62 U/L (0-50); AST (SGOT) 163 U/L (17-59); Albumin 2.6 g/dl (3.5-5.0); Alkaline Phosphatase 803 U/L (38-126); Blood Urea Nitrogen 67 mg/dl (9-20); Calcium 8.2 mg/dl (8.4-10.2); Carbon Dioxide 22 mmol/L (22-30); Chloride 95 mmol/L (98-107); Estimated Creatinine Clearance 49 ml/min; Glucose 147 mg/dl (70-99); Potassium 4.4 mmol/L (3.5-5.1); Sodium 126 mmol/L (135-145); Total Protein 5.9 g/dl (6.3-8.2); eGFR 59.47
[2024-12-31] MEDS: NSS 1000 IV (04:58)
--- NOTE | 2024-12-31 05:07 | HPS.HSE ---
Family Physician
-
Family Physician: Juliocesar Jones, DO
Chief Complaint
-
Confusion
History of Present Illness
Patient is a 69y M with PMH significant for hepatocellular carcinoma, cirrhosis and chronic hepatic encephalopathy who has been hospitalized at essentially from 12/14 to present and who was discharged in the AM on 12/30 who presents to ED for
evaluation of increased confusion. states that patient did not take his noon dose of lactulose prior to discharge and then refused his PM dose this evening as well. Became increasingly confused throughout the evening and they returned to the
ED for further evaluation.
No complaint of abdominal pain. No fevers / chills.
Medical History
Past Medical History
Past Medical History: Reports Other
Additional Past Medical History:
Stage III Hepatocellular Carcinoma
Cirrhosis with Ascites, Thrombocytopenia
Chronic Hepatic Encephalopathy
Chronic Hyponatremia / SIADH
DM-II
Hypothyroidism
CKD III
Past Surgical History: Reports Other
Additional Past Surgical History:
Cholecystectomy
Liver Biopsy
Port Placement
Social History
Tobacco: Non-smoker
Alcohol: Former (No alcohol x 20 years.)
Family History
Family History: Not pertinent
Allergies / Home Medications
Allergies reflects when Allergies were last updated in [employer].
Home Medications with original date entered in [employer]
Allergy/Medication List:
Allergies
Allergy/AdvReac Type Severity Reaction Status Date / Time
Penicillins Allergy Rash-'as a Verified 12/31/24 02:14
child.'
Home Medications
metformin 500 mg tablet 1,000 mg PO DAILY Diabetes 02/05/14
spironolactone 100 mg tablet 200 mg PO DAILY Fluid Retention/BP 11/26/24
Held on 12/30/24. Instructions: Resume on 01/28/25. hold until cleared by pcp/oncology or hepatology
levothyroxine 112 mcg tablet 112 mcg PO DAILY Thyroid 12/14/24
lidocaine-prilocaine 2.5 %-2.5 % topical cream 1 applic topical DAILYPRN PRN port access 12/14/24
ondansetron HCl 8 mg tablet 8 mg PO Q8HPRN PRN nausea 12/14/24
lactulose 10 gram/15 mL oral solution 20 g (30 mL) PO QID 30 days #3,600 mL 12/18/24
Ammonia Levels #1 ea 12/30/24
Comprehensive Metabolic Panel #1 ea 12/30/24
furosemide 40 mg tablet 40 mg PO DAILY 30 days #30 tabs 12/30/24
rifaximin 550 mg tablet (Xifaxan) 550 mg PO BID liver 30 days #60 tabs 12/30/24
sodium chloride 1,000 mg soluble tablet 1,000 mg PO DAILY 30 days #30 tabs 12/30/24
Review of Systems
-
Unable to obtain full review of systems at this time due to: Other (encephalopathy)
History Source: Patient
Respiratory: Denies Trouble Breathing
Cardiac: Denies Chest Pain
Abdomen/GI: Reports Nausea; Denies Abdominal Pain or Vomiting
Neurological: Denies Headache
Physical Exam
Vital Signs
Vital Signs
Temp Pulse Resp BP Pulse Ox
97.6 F 86 18 97/54 98
12/31/24 02:06 12/31/24 04:15 12/31/24 04:15 12/31/24 04:00 12/31/24 03:45
Physical Exam
General: Other (Chronically ill-appearing 69y M in no acute distress.)
HEENT: Other (Dry MM. Neck supple.)
Respiratory: Clear; No Wheezes, Rales or Rhonchi
Cardiac: S1/S2 and Regular Rhythm; No Murmur
GI: Other (Softly distended. Not firm / tender. Pos BS.)
Musculoskeletal: No Clubbing, No Cyanosis and No Edema
Neuro: Other (Confused. Not answering questions appropriately - though does seem to answer Y/N questions - ? accuracy. Mildly tremulous.)
Laboratory Results
-
12/31/24 02:
12/31/24 02:23
Laboratory Results
Total Bilirubin 2.6 mg/dl (0.2-1.3) H 12/31/24 02:23
AST 163 U/L (17-59) H 12/31/24 02:23
ALT 62 U/L (0-50) H 12/31/24 02:23
Alkaline Phosphatase 803 U/L (38-126) H 12/31/24 02:
Impression/Plan
-
A/P: Patient is a 69y M with PMH significant for hepatocellular carcinoma, cirrhosis with ascites and chronic hepatic encephalopathy who was discharged from on 12/30 and returns later that evening with increased confusion.
Acute on Chronic Hepatic Encephalopathy
- Admit for further evaluation and treatment.
- Missed at least two doses of lactulose in the past 24 hours according to his .
- Resume usual med regimen with no changes for now.
- Follow for adequate stooling on lactulose.
- Follow for clinical improvement.
Stage III Hepatocellular Carcinoma
Cirrhosis with Ascites and Thrombocytopenia
Abnormal LFTs secondary to the above
- Abdomen soft without evident ascites build-up.
- Last paracentesis 12/29 with plan for weekly taps.
- Follow clinically and consult IR for para if needed.
- Continue Lasix.
- Follow-up with [facility] after discharge.
Chronic Hyponatremia / SIADH
- Stable. Na levels not significantly changed.
- Continue salt supplementation, fluid restriction and daily Lasix.
DM-II
- Stable. Would likely discontinue metformin completely given cirrhosis.
- Follow glucose and cover with SSI as needed.
- A1C on 12/15 was 7%.
Hypothyroidism
- Continue T4 supplementation.
DVT Prophylaxis: SCDs
Code Status: Full
[2024-12-31] MEDS: SYNTHROID 112 MCG PO (06:18)
[2024-12-31 06:37] LABS: Hematocrit 34.8 % (39.0-52.0); Hemoglobin 12.0 g/dL (13.0-18.0); Mean Corp Hgb Conc. 34.5 g/dL (33.0-37.0); Mean Corpuscular Volume 93.0 fL (80.0-94.0); Platelet Count 111 10^3/uL (130-400); Red Cell Dist. Width 18.2 % (11.5-14.5)
[2024-12-31 07:09] LABS: ALT (SGPT) 57 U/L (0-50); AST (SGOT) 152 U/L (17-59); Albumin 2.6 g/dl (3.5-5.0); Alkaline Phosphatase 787 U/L (38-126); Blood Urea Nitrogen 70 mg/dl (9-20); Calcium 8.3 mg/dl (8.4-10.2); Carbon Dioxide 23 mmol/L (22-30); Chloride 95 mmol/L (98-107); Estimated Creatinine Clearance 49 ml/min; Glucose 139 mg/dl (70-99); Potassium 4.4 mmol/L (3.5-5.1); Sodium 126 mmol/L (135-145); Total Protein 6.1 g/dl (6.3-8.2); eGFR 59.47
[2024-12-31] MEDS: NOVOLOG FLEXPEN-LOW RESISTANCE SC ×2 (08:38→11:32)
[2024-12-31] MEDS: SODIUM CHLORIDE 1 GRAM PO (08:49)
[2024-12-31] MEDS: XIFAXAN 550 MG PO ×2 (08:49→21:05)
[2024-12-31] MEDS: LASIX 40 MG PO (08:49)
[2024-12-31] MEDS: DUPHALAC/CHRONULAC 20 GRAMS PO ×4 (08:49→21:05)
[2024-12-31 08:53] LABS: Urine Character Clear (Clear)
[2024-12-31 09:11] LABS: Urine Squamous Cell 0-2 /LPF (Few); Urine White Cell 0-2 /HPF (0-5)
[2024-12-31 11:08] LABS: Glucose - Point of Care 113 mg/dl (70-99)
--- NOTE | 2024-12-31 13:57 | CM ---
CM reviewed chart and met with pt and his bedside in ED. Lives with his in multistory home, 2 SYED, has half bath on basement level, total of 16 steps to second level bedroom and full bath.
Independent in ADLs, personal care and ambulation at baseline, still driving. No DME.
Confirms prescription coverage.
Several recent admissions since the beginning of December, was just discharged yesterday.
No hx VN or SNF, declined VN last admission.
PCP: Juliocesar Jones, per pt has not seen him recently. Follows with Dr Lise Zaragoza at [place]
Pharmacy: [facility]
CM will continue to follow for all discharge planning needs.
--- NOTE | 2024-12-31 14:04 | W.PN.UPDATE ---
Update Note
Progress Note Update
No acute events since this morning. LFTs appear stable, UA unremarkable. I suspect most likely delirium. Did not take lactulose dose x 2 and will monitor additional day prior to discharge. Belly nontender.
[2024-12-31 17:25] LABS: Glucose - Point of Care 172 mg/dl (70-99)
[2024-12-31] MEDS: NOVOLOG FLEXPEN-LOW RESISTANCE 1 UNITS SC (17:25)
[2024-12-31 17:58] LABS: Glucose - Point of Care 165 mg/dl (70-99)
[2024-12-31 21:10] LABS: Glucose - Point of Care 144 mg/dl (70-99)
[2025-01-01 03:00] VITALS: BP 100/49
[2025-01-01 04:12] VITALS: BMI 19.3
[2025-01-01 04:28] LABS: Hematocrit 35.1 % (39.0-52.0); Hemoglobin 12.5 g/dL (13.0-18.0); Mean Corp Hgb Conc. 35.6 g/dL (33.0-37.0); Mean Corpuscular Volume 92.9 fL (80.0-94.0); Platelet Count 168 10^3/uL (130-400); Red Cell Dist. Width 18.4 % (11.5-14.5)
[2025-01-01 04:38] LABS: ALT (SGPT) 67 U/L (0-50); AST (SGOT) 184 U/L (17-59); Albumin 2.7 g/dl (3.5-5.0); Alkaline Phosphatase 968 U/L (38-126); Blood Urea Nitrogen 75 mg/dl (9-20); Calcium 8.6 mg/dl (8.4-10.2); Carbon Dioxide 21 mmol/L (22-30); Chloride 96 mmol/L (98-107); Estimated Creatinine Clearance 49 ml/min; Glucose 144 mg/dl (70-99); Potassium 4.4 mmol/L (3.5-5.1); Sodium 127 mmol/L (135-145); Total Protein 6.1 g/dl (6.3-8.2); eGFR 59.47
[2025-01-01] MEDS: SYNTHROID 112 MCG PO (05:48)
[2025-01-01 08:00] VITALS: BP 103/55
[2025-01-01 08:06] LABS: Glucose - Point of Care 118 mg/dl (70-99)
[2025-01-01] MEDS: NOVOLOG FLEXPEN-LOW RESISTANCE SC ×2 (08:50→12:33)
[2025-01-01] MEDS: XIFAXAN 550 MG PO (08:51)
[2025-01-01] MEDS: DUPHALAC/CHRONULAC 20 GRAMS PO ×2 (08:51→14:41)
[2025-01-01] MEDS: SODIUM CHLORIDE 1 GRAM PO (08:51)
[2025-01-01] MEDS: LASIX 40 MG PO (08:52)
--- NOTE | 2025-01-01 11:24 | CM ---
CM reviewed chart, reviewed with Hospitalist, patient for transfer to [facility].
Forms on chart.
Plan; Transfer to [facility]- ambulance transport
[2025-01-01 11:32] VITALS: BP 131/71
[2025-01-01 11:58] LABS: Glucose - Point of Care 125 mg/dl (70-99)
--- NOTE | 2025-01-01 12:19 | W.PN.HOSP.TC ---
Addendum entered and electronically signed by Edward Hall MD 01/01/25 17:08:
[id number]
Original Note:
Today's Communication/Plan
-
tx to [facility]
Assessment / Plan
Assessment / Plan
Physical Exam
General: Other (Chronically ill-appearing 69y M in no acute distress.)
HEENT: Other (Dry MM. Neck supple.)
Respiratory: Clear; No Wheezes, Rales or Rhonchi
Cardiac: S1/S2 and Regular Rhythm; No Murmur
GI: Other (Softly distended. Not firm / tender. Pos BS.)
Musculoskeletal: No Clubbing, No Cyanosis and No Edema
Neuro: Other (Confused. Not answering questions appropriately - though does seem to answer Y/N questions - ? accuracy. Mildly tremulous.)
A/P: Patient is a 69y M with PMH significant for hepatocellular carcinoma, cirrhosis with ascites and chronic hepatic encephalopathy who was discharged from on 12/30 and returns later that evening with increased confusion.
Acute on Chronic Hepatic Encephalopathy
-resolved
-suspect delirium v not taking lactulose as advised
-cont to follow closely with Xifaxin and Lactulose
Stage III Hepatocellular Carcinoma
Cirrhosis with Ascites and Thrombocytopenia
Abnormal LFTs secondary to the above
- Abdomen soft without evident ascites build-up.
- Last paracentesis 12/29 with plan for weekly taps.
- Follow clinically and consult IR for para if needed.
- Continue Lasix.
- Follow-up with [facility]
Chronic Hyponatremia / SIADH
- Stable. Na levels not significantly changed.
- Continue salt supplementation, fluid restriction and daily Lasix.
DM-II
- Stable. Would likely discontinue metformin completely given cirrhosis.
- Follow glucose and cover with SSI as needed.
- A1C on 12/15 was 7%.
Hypothyroidism
- Continue T4 supplementation.
DVT Prophylaxis: SCDs
Code Status: Full
More than 30 minutes spent in discharge including
Final examination of the patient
Summarizing hospital stay
Instructions for continuing care to all relevant caregivers
Preparation of discharge records, prescriptions, and referral forms
Total time spent (in minutes): 36
Anticipated Discharge: Today
Subjective/Interval History
-
Date of Service: January 01, 2025
tx to [facility]
Objective Data
-
Labs:
Laboratory Results
01/01/25
03:43
WBC 10.8
Hgb 12.5 L
Hct 35.1 L
Plt Count 168 D
Sodium 127 L
Potassium 4.4
Chloride 96 L
Carbon Dioxide 21 L
BUN 75 H
Creatinine 1.3
Glucose 144 H
Calcium 8.6
Total Bilirubin 3.0 H
AST 184 H
ALT 67 H
Alkaline Phosphatase 968 H
Vital Signs:
Vital Signs
Temp Pulse Resp BP Pulse Ox
97.4 F 86 16 103/55 98
01/01/25 08:00 01/01/25 08:52 01/01/25 08:00 01/01/25 08:52 01/01/25 08:00
I&O
12/31/24 01/01/25 01/02/25
06:59 06:59 06:59
Intake Total 360 / 360
Output Total 490 / 490
Balance -130 / -130
Review of Systems
-
History Source: Patient
All other systems: Not reviewed unless documented
Data Reviewed
-
Diagnostic Radiology: Report Reviewed by me
CT Scan: Report Reviewed by me
Labs: Labs Reviewed by me
--- NOTE | 2025-01-01 12:22 | W.DS.TRANS ---
Addendum entered and electronically signed by Dolores Wilkins MD 01/01/25 13:31:
Agree with Resident's discharge summary . See same day progress note for additional details.
Original Note:
DC Summary - [employer] [facility]
-
Discharge Instructions:
Discharge Diagnosis/Procedures
Stage III Hepatocellular Carcinoma
Cirrhosis with Ascites and Thrombocytopenia
Abnormal LFTs secondary to the above
Diet Low Fat
Blood Work as per [facility]
Instructions:
Stand-Alone Forms:
Changes to Home Medications: No
Discharge Medications:
DC Medications w/original date entered in [employer]
metformin 500 mg tablet 1,000 mg PO DAILY Diabetes 02/05/14
spironolactone 100 mg tablet 200 mg PO DAILY Fluid Retention/BP 11/26/24
Held on 12/30/24. Instructions: Resume on 01/28/25. hold until cleared by pcp/oncology or hepatology
levothyroxine 112 mcg tablet 112 mcg PO DAILY Thyroid 12/14/24
lidocaine-prilocaine 2.5 %-2.5 % topical cream 1 applic topical DAILYPRN PRN port access 12/14/24
ondansetron HCl 8 mg tablet 8 mg PO Q8HPRN PRN nausea 12/14/24
lactulose 10 gram/15 mL oral solution 20 g (30 mL) PO QID 30 days #3,600 mL 12/18/24
furosemide 40 mg tablet 40 mg PO DAILY 30 days #30 tabs 12/30/24
rifaximin 550 mg tablet (Xifaxan) 550 mg PO BID liver 30 days #60 tabs 12/30/24
sodium chloride 1,000 mg soluble tablet 1,000 mg PO DAILY 30 days #30 tabs 12/30/24
Home Medication Changes
na
Pending Results: No
[2025-01-01 16:19] VITALS: BP 109/59
== END 2025-01-01 16:10 | disposition short-term general hospital (02) | DRG 442 ==
LOC: 4 WEST ACU 05:32
PROVIDERS: ADMITTING PHYSICIAN Hospitalist; ATTENDING PHYSICIAN Internal Medicine; EMERGENCY PHYSICIAN Student in an Organized Health Care Education/Training Program; FAMILY PHYSICIAN Student in an Organized Health Care Education/Training Program
DX: K76.82 Hepatic encephalopathy (principal); C22.0 Liver cell carcinoma; E22.2 Syndrome of inappropriate secretion of antidiuretic hormone; R18.8 Other ascites; E87.1 Hypo-osmolality and hyponatremia; K74.69 Other cirrhosis of liver; D69.6 Thrombocytopenia, unspecified; E11.22 Type 2 diabetes mellitus with diabetic chronic kidney disease; E03.9 Hypothyroidism, unspecified; N18.30 Chronic kidney disease, stage 3 unspecified; I12.9 Hypertensive chronic kidney disease with stage 1 through stage 4 chronic kidney disease, or unspecified chronic kidney disease; R79.89 Other specified abnormal findings of blood chemistry; Z79.899 Other long term (current) drug therapy
CPT/HCPCS: 70450; 76700; 80053; 81003; 81015; 82140; 82248; 82962; 85025; 85027; 97162; 99285